=== PATIENT | male | born 1945 | race Caucasian/White ===

== ENCOUNTER → 2023-12-16 07:28 | Outpatient (REF) | payer MEDICARE, OTHER, SELFPAY ==
[2023-12-16 08:05] LABS: % Basophils 0.5 % (0-2); % Eosinophils 1.2 % (0-6); % Immature Granulocytes 0.7 % (0-0.5); % Lymphocytes 32.8 % (20.5-51.1); % Monocytes 10.9 % (1.7-9.3); % Neutrophils 53.9 % (42.2-75.2); Absolute Eosinophils 0.1 10^3/uL (0-0.7); Absolute Lymphocytes 1.4 10^3/uL (1.2-3.4); Absolute Monocytes 0.5 10^3/uL (0.1-0.6); Absolute Neutrophils 2.3 10^3/uL (1.4-6.5); Hemoglobin 13.8 g/dL (13.0-18.0); Mean Corp Hgb Conc. 34.5 g/dL (33.0-37.0); Mean Corpuscular Hgb 33.3 pg (27.0-31.0); Mean Corpuscular Volume 96.4 fL (80.0-94.0); Mean Platelet Volume 10.1 fL (7.4-10.4); Nucleated Red Blood Cells % 0 % (-); Platelet Count 174 10^3/uL (130-400); Red Blood Cell Count 4.15 10^6/uL (4.70-6.10); Red Cell Dist. Width 14.2 % (11.5-14.5); White Blood Cell Count 4.3 10^3/uL (4.8-10.8)
[2023-12-16 08:35] LABS: ALT (SGPT) 31 U/L (0-50); AST (SGOT) 36 U/L (17-59); Albumin 4.4 g/dl (3.5-5.0); Alkaline Phosphatase 44 U/L (38-126); Blood Urea Nitrogen 22 mg/dl (9-20); Carbon Dioxide 28 mmol/L (22-30); Chloride 102 mmol/L (98-107); Glucose 104 mg/dl (70-99); HDL Cholesterol 91 mg/dl; LDL Cholesterol, Calculated 107 mg/dl; Potassium 4.6 mmol/L (3.5-5.1); Sodium 136 mmol/L (135-145); Total Bilirubin 0.9 mg/dl (0.2-1.3); Total Cholesterol 229 mg/dl (50-199); Total Protein 6.8 g/dl (6.3-8.2); Triglyceride 157 mg/dl (10-149); Very Low Density Lipoprotein 31 mg/dl (0-30); eGFR > 60.00
== END ==
LOC: REG 07:28
PROVIDERS: ATTENDING PHYSICIAN Family Medicine
DX: R73.09 Other abnormal glucose (principal); E78.5 Hyperlipidemia, unspecified; C61 Malignant neoplasm of prostate; M10.9 Gout, unspecified
CPT/HCPCS: 36415; 80053; 80061; 83036; 84550; 85025

== ENCOUNTER 2023-12-23 11:23 | Emergency (ER) | payer MEDICARE, OTHER, SELFPAY ==
[2023-12-23 11:25] VITALS: BP 163/79
--- NOTE | 2023-12-23 11:37 | ED.GENMED ---
History of Present Illness
General
Chief Complaint: Flank Pain
Time Seen by Provider: 12/23/23 11:37
Travel History
Have you had any contact with someone who has COVID-19?: No
Do you have any symptoms of coronavirus? Fever > 100 degrees, chills, cough, shortness of breath, sore throat, loss of taste or smell, muscle aches, or headache?: No
History of Present Illness
History of Present Illness:
HPI: Patient presents from urgent care due to right flank pain. He has a history of prostate and bladder cancer known to Dr. Terrazas but has not had pain like this in the past. He has no urinary symptoms. He has some vague upper abdominal
discomfort as well. There is been no nausea or vomiting.
EXAM:
GENERAL: Well appearing in no distress
HEENT: Moist oral mucosa
CARDIOVASCULAR: No murmurs, normal heart rate and rhythm, No chest wall tenderness
PULMONARY: No respiratory distress, breath sounds are clear and equal
ABDOMEN: Soft with no peritoneal signs, minimal vague upper tenderness, no CVA tenderness
NEUROLOGIC: Excellent strength all extremities, no coordination deficits
PSYCHIATRIC: Appropriate mental status, normal insight and judgement
EXTREMITIES: Nontender, no edema, moves all extremities equally
SKIN: No rash, no lesions
ED COURSE:
11:50 AM: I initially evaluated patient
NUMBER AND COMPLEXITY OF PROBLEMS ADDRESSED AT THE ENCOUNTER
� Chronic conditions affecting care: High blood pressure, hyperlipidemia, prostate cancer and bladder cancer
� Acute Exacerbation and/or Progression of Chronic Illness: This is an acute problem
� Differential Diagnosis includes: Ureteral stone/colic, musculoskeletal back pain, UTI/pyelonephritis
AMOUNT AND/OR COMPLEXITY OF DATA TO BE REVIEWED AND ANALYZED
� I performed an independent evaluation of and my interpretation is:
EKG:
CT: CT shows no clear cause for the right flank pain
X-rays:
Laboratory Studies: CBC and chemistries unremarkable, trace amount of blood noted on urinalysis but no sign of infection
Other:
� Review of other/old records: The patient had a relatively unremarkable upper endoscopy in 2021
� Clinical information was obtained by an independent historian: None needed
� Prescriptions/Medications Considered but not given:
� Further testing considered but not performed:
RISK OF COMPLICATIONS AND/OR MORBIDITY OR MORTALITY OF PATIENT MANAGEMENT
� Social determinants of health affecting care: Lives at home
� Discussion with other providers:
� Escalation of care including admission/observation vs risk of discharge considered: The patient has been having flank pain for the past few days. Initially declined narcotic analgesia. CT imaging shows no clear cause for the
pain. He is already known to Dr. Terrazas for bladder/prostate cancer. He states he has had local resection along with chemo without radiation. He will follow-up Dr. Terrazas. Will try dose of Toradol before discharge
Past History
Past History
ED Past Medical History: Cancer (prostate), HTN, Other (Lower GI bleed) and Other (Gout, benign prostatic hypertrophy, borderline diabetes. depression, previous known hemorrhoids and polypectomy); Negative Arrthythmia
ED Past Surgical History: Orthopedic and Urological; Negative Cardiac
Social History
Tobacco: Former smoker
Alcohol: Daily
Drug: None
Personal:
Living: with family
Employment: Retired
Family History
Family History: Other (Noncontributory)
Phy Exam
Physical Exam
Physical Exam:
See HPI
Course
Orders/Labs/Results
Orders:
Orders
12/23/23 11:48
CT Abd/pel Without Iv Or Oral Urgent
Comment:
Reason For Exam: acute R flank pain
0.9% Sodium Chloride 1000 ml [Nss] 1,000 ml IV BOLUS
12/23/23 12:21
Complete Blood Count/With Diff Urgent
Comprehensive Metabolic Panel Urgent
Lipase Urgent
Urinalysis Reflex To Culture Urgent
Date Specimen was Collected: 12/23/23
Time Specimen was Collected: 12:12
Urine Microscopic Reflex Cult Urgent
Abnormal Lab Results
12/23/23
12:21
RBC 4.09 L 10^6/uL
(4.70-6.10)
MCV 96.8 H fL
(80.0-94.0)
MCH 33.3 H pg
(27.0-31.0)
Monocytes % 9.5 H %
(1.7-9.3)
Glucose 104 H mg/dl
(70-99)
Ur Occult Blood Reflex Trace A
(Negative)
Urine Bacteria (Reflex) Few A
(Negative)
12/23/23 12:21
12/23/23 12:21
Vital Signs
Initial and Last Documented VS:
Initial Vital Signs
Temp Pulse Resp BP Pulse Ox
97.6 F 67 18 163/79 98
12/23/23 11:25 12/23/23 11:25 12/23/23 11:25 12/23/23 11:25 12/23/23 11:25
Last Documented Vital Signs
Temp Pulse Resp BP Pulse Ox
97.6 F 60 18 122/78 96
12/23/23 11:25 12/23/23 13:14 12/23/23 13:14 12/23/23 13:14 12/23/23 13:14
*Critical Care Note
Total Time (30-74mins, 75-104mins- exclusive of procedures): Not Applicable
ED Attending Note
-
Portions of this chart may have been created with voice recognition software.� Occasional wrong word or��sound alike� substitutions may have occurred due to the inherent limitations of voice recognition software.
Discharge Plan
Departure
Patient Disposition: Home (Routine Discharge)
Date of Disposition: 12/23/23
Time of Disposition: 13:37
Patient with high blood pressure during this ER visit?: Yes
Discharge Problem:
Acute flank pain
Prescriptions:
No Action
vitamin B complex 1 TAB tablet
1 tab PO DAILY
fluoxetine 20 MG capsule
20 mg PO DAILY
omeprazole 20 MG capsule,delayed release(DR/EC)
20 mg PO DAILY
allopurinol 300 MG tablet
300 mg PO DAILY
cholecalciferol (vitamin D3) 125 MCG tablet,disintegrating
5,000 unit PO DAILY
multivitamin 1 EACH tablet
1 ea PO DAILY
ascorbic acid (vitamin C) [Vitamin C] 500 MG tablet
500 mg PO DAILY
lisinopril 10 MG tablet
10 mg PO DAILY
Ugujati-E-Bmpwlzf 1 TAB Tab
1 tab PO DAILY
Patient Comments:
900 mg
acetaminophen [Tylenol Extra Strength] 500 MG tablet
1,000 mg PO NOW
naproxen [Naprosyn] 500 MG tablet
500 mg PO BID Qty: 60 0RF
nitrofurantoin monohyd/m-cryst 100 MG capsule
100 mg PO DAILY Qty: 14 0RF
docusate sodium 100 MG capsule
100 mg PO BID Qty: 60 0RF
Rx Instructions:
get over the counter
tramadol 50 MG tablet
50 mg PO Q8 PRN (Reason: pain) Qty: 35 0RF
ondansetron 4 MG tablet,disintegrating
4 mg PO TIDPRN PRN (Reason: nausea/vomiting) Qty: 10 0RF
hydrocodone-acetaminophen 1 TABLET tablet
1 tab PO Q4HPRN PRN (Reason: severe pain) Qty: 8 0RF
amoxicillin-pot clavulanate 1 TABLET tablet
1 tab PO Q12 Qty: 20 0RF
Referrals:
Isaiah Boyce MD [Family Provider] -
Activity Restrictions/Additional Instructions:
Your white blood cell count and hemoglobin levels are normal. Kidney function is normal. Liver and pancreas numbers are also normal. There was a trace amount of blood noted but no sign of infection. The noncontrast CAT scan of the abdomen pelvis
showed no clear cause of your pain. There is a tiny stone inside of your left kidney but this should not cause the pain when they are inside the kidney and it was also on the opposite side. You do have severe diverticulosis however there is no
sign of infection of the diverticulosis which will be diverticulitis. There was some mild diffuse bladder wall thickening but again there was no sign of infection. I recommend that you follow-up with Dr. Terrazas. I also recommend that you continue
NSAIDs as an outpatient and consider ghni-xjq-wgrwyxm Salonpas or lidocaine patches.
Interventions
Interventions:
*Risk Screen - Suicide Last Done: 12/23/23 11:26
*General Assessment Last Done: 12/23/23 11:26
*Neglect/Abuse Screening Last Done: 12/23/23 11:26
KM-Rsmoiz-Fvszbnrxef Assessment Last Done: 12/23/23 13:14
ED-Male Genitourinary Assessment Last Done: 12/23/23 13:14
[2023-12-23 11:38] VITALS: BMI 24.1
[2023-12-23] MEDS: NSS 1000 IV (12:19)
[2023-12-23 12:30] LABS: Urine Albumin Negative (Neg - Trace); Urine Bilirubin Negative (Negative); Urine Character Clear (Clear); Urine Color Yellow; Urine Glucose Negative (Negative); Urine Ketone Negative (Negative); Urine Leukocyte Negative (Negative); Urine Nitrite Negative (Negative); Urine Occult Blood Trace (Negative); Urine Specific Gravity 1.025 (<1.030); Urine Urobilinogen Negative (Neg - 1+)
[2023-12-23 12:31] LABS: % Basophils 0.3 % (0-2); % Eosinophils 0.6 % (0-6); % Immature Granulocytes 0.5 % (0-0.5); % Lymphocytes 20.8 % (20.5-51.1); % Monocytes 9.5 % (1.7-9.3); % Neutrophils 68.3 % (42.2-75.2); Absolute Lymphocytes 1.3 10^3/uL (1.2-3.4); Absolute Monocytes 0.6 10^3/uL (0.1-0.6); Absolute Neutrophils 4.3 10^3/uL (1.4-6.5); Hematocrit 39.6 % (39.0-52.0); Hemoglobin 13.6 g/dL (13.0-18.0); Mean Corp Hgb Conc. 34.3 g/dL (33.0-37.0); Mean Corpuscular Hgb 33.3 pg (27.0-31.0); Mean Corpuscular Volume 96.8 fL (80.0-94.0); Mean Platelet Volume 10.1 fL (7.4-10.4); Nucleated Red Blood Cells % 0 % (-); Platelet Count 178 10^3/uL (130-400); Red Blood Cell Count 4.09 10^6/uL (4.70-6.10); Red Cell Dist. Width 13.9 % (11.5-14.5); White Blood Cell Count 6.2 10^3/uL (4.8-10.8)
[2023-12-23 12:41] LABS: Urine Red Blood Cell 0-2 /HPF (0-2); Urine White Cell 0-2 /HPF (0-5)
[2023-12-23 12:44] LABS: ALT (SGPT) 37 U/L (0-50); AST (SGOT) 35 U/L (17-59); Albumin 4.3 g/dl (3.5-5.0); Alkaline Phosphatase 45 U/L (38-126); Blood Urea Nitrogen 17 mg/dl (9-20); Calcium 9.2 mg/dl (8.4-10.2); Carbon Dioxide 26 mmol/L (22-30); Chloride 107 mmol/L (98-107); Estimated Creatinine Clearance 93 ml/min; Glucose 104 mg/dl (70-99); Lipase 87 U/L (23-300); Potassium 4.5 mmol/L (3.5-5.1); Sodium 137 mmol/L (135-145); Total Bilirubin 0.6 mg/dl (0.2-1.3); Total Protein 6.8 g/dl (6.3-8.2); eGFR > 60.00
[2023-12-23 12:49] LABS: Urine Bacteria Few (Negative)
[2023-12-23 13:14] VITALS: BP 122/78
[2023-12-23] MEDS: TORADOL 15 MG IV (13:55)
== END 2023-12-23 14:21 | disposition home or self-care (01) ==
LOC: EMR 11:23
PROVIDERS: EMERGENCY PHYSICIAN Emergency Medicine; FAMILY PHYSICIAN Family Medicine
DX: R10.9 Unspecified abdominal pain (principal); I10 Essential (primary) hypertension; Z87.891 Personal history of nicotine dependence
CPT/HCPCS: 99284; 96374; 96361; 74176; 80053; 81003; 81015; 83690; 85025

== ENCOUNTER → 2023-12-31 09:57 | Outpatient (REF) | payer MEDICARE, OTHER, SELFPAY | LOC: RAD 09:57 | PROVIDERS: ATTENDING PHYSICIAN Family Medicine | DX: M54.9 Dorsalgia, unspecified (principal); R07.9 Chest pain, unspecified; C67.9 Malignant neoplasm of bladder, unspecified; C61 Malignant neoplasm of prostate | CPT/HCPCS: 71101; 72072 ==

== ENCOUNTER → 2024-03-02 09:12 | Outpatient (REF) | payer MEDICARE, OTHER, SELFPAY | LOC: RAD 09:12 | PROVIDERS: ATTENDING PHYSICIAN Chiropractor; FAMILY PHYSICIAN Family Medicine | DX: M54.2 Cervicalgia (principal); M54.50 Low back pain, unspecified | CPT/HCPCS: 72040; 72100 ==

== ENCOUNTER 2024-03-23 19:40 | Inpatient (IN) | payer MEDICARE, OTHER, SELFPAY ==
[2024-03-23 16:01] VITALS: BP 161/100; BMI 23.7
[2024-03-23 16:12] LABS: % Basophils 0.3 % (0-2); % Eosinophils 0.6 % (0-6); % Immature Granulocytes 0.5 % (0-0.5); % Lymphocytes 18.7 % (20.5-51.1); % Monocytes 7.6 % (1.7-9.3); % Neutrophils 72.3 % (42.2-75.2); Absolute Eosinophils 0.1 10^3/uL (0-0.7); Absolute Immature Granulocytes 0.1 10^3/uL (0-0.05); Absolute Lymphocytes 2.1 10^3/uL (1.2-3.4); Absolute Monocytes 0.9 10^3/uL (0.1-0.6); Absolute Neutrophils 8.1 10^3/uL (1.4-6.5); Hematocrit 39.8 % (39.0-52.0); Hemoglobin 13.5 g/dL (13.0-18.0); Mean Corp Hgb Conc. 33.9 g/dL (33.0-37.0); Mean Corpuscular Hgb 33.2 pg (27.0-31.0); Mean Corpuscular Volume 97.8 fL (80.0-94.0); Mean Platelet Volume 10.1 fL (7.4-10.4); Nucleated Red Blood Cells % 0 % (-); Platelet Count 194 10^3/uL (130-400); Red Blood Cell Count 4.07 10^6/uL (4.70-6.10); White Blood Cell Count 11.3 10^3/uL (4.8-10.8)
[2024-03-23 16:30] LABS: ALT (SGPT) 28 U/L (0-50); AST (SGOT) 35 U/L (17-59); Albumin 4.6 g/dl (3.5-5.0); Alkaline Phosphatase 52 U/L (38-126); Blood Urea Nitrogen 22 mg/dl (9-20); Carbon Dioxide 23 mmol/L (22-30); Chloride 108 mmol/L (98-107); Estimated Creatinine Clearance 73 ml/min; Glucose 114 mg/dl (70-99); Potassium 4.1 mmol/L (3.5-5.1); Sodium 140 mmol/L (135-145); Total Bilirubin 0.6 mg/dl (0.2-1.3); Total Protein 7.1 g/dl (6.3-8.2); eGFR > 60.00
--- NOTE | 2024-03-23 18:17 | ED.GENMED ---
History of Present Illness
General
Chief Complaint: Abdominal Symptoms
Source: patient
Exam Limitations: none
Time Seen by Provider: 03/23/24 18:07
Nursing documentation reviewed up to this point in time: agreed with
Travel History
Have you had any contact with someone who has COVID-19?: No
Do you have any symptoms of coronavirus? Fever > 100 degrees, chills, cough, shortness of breath, sore throat, loss of taste or smell, muscle aches, or headache?: No
History of Present Illness
History of Present Illness:
Patient to ED for rectal bleeding. States he developed lower abdominal cramping this afternoon. Has had 4 epsides of bloody stool. Brought self to ED for eval. Reports prior episdode many years ago. No other symptoms.
Past History
Past History
ED Past Medical History: Cancer (prostate), HTN, Other (Lower GI bleed) and Other (Gout, benign prostatic hypertrophy, borderline diabetes. depression, previous known hemorrhoids and polypectomy); Negative Arrthythmia
ED Past Surgical History: Orthopedic and Urological; Negative Cardiac
Social History
Tobacco: Former smoker
Alcohol: Daily
Drug: None
Personal:
Living: with family
Employment: Retired
Family History
Family History: Other (Noncontributory)
Review of Systems
Review of Systems
Allergies reviewed?: Yes
All Other Systems: ROS reviewed and negative except as documented in HPI and ROS
Constitutional: Reports no symptoms
EENT: Reports no symptoms
Respiratory: Reports no symptoms
Cardiac: Reports no symptoms
ABD/GI: Reports bloody stools
Musculoskeletal: Reports no symptoms
Skin: Reports no symptoms
Neurological: Reports no symptoms
Psychiatric: Reports no symptoms
Phy Exam
General Physical Exam
General Presentation: well appearing and no apparent distress
General age: appears stated age
General Skin: warm and dry
General Habitus: normal
General Mental: alert
General Hydration: appears well hydrated
Pulmonary Exam
Pulmonary Exam: lungs clear and no respiratory distress
Gastrointestinal Exam
Gastrointestinal Exam: normal bowel sounds, soft, no organomegaly, non distended and no cva tenderness
Palpation: left upper quadrant: No tenderness, left lower quadrant: Minimal tenderness, right upper quadrant: No tenderness and right lower quadrant: Minimal tenderness
Rectal Exam: soft stool
Stool: red
Guaiac Status: grossly bloody - positive
Musculoskeletal Exam
Musculoskeletal Exam: full ROM and neuro vasc intact
Skin Exam
Skin Exam: normal color, warm/dry and no rash
Psychiatric Exam
Psychiatric Exam: normal mood/affect
Course
Orders/Labs/Results
Orders:
Orders
03/23/24 Dinner
NPO
Allow oral meds: Yes
Allow clear liquids: No
NPO with Ice Chips: No
03/23/24 16:04
EKG [Electrocardiogram (*1)] Urgent
Reason for Study: Abdominal Pain
EKG- Treatment ONCE
03/23/24 16:07
Complete Blood Count/With Diff Urgent
Comprehensive Metabolic Panel Urgent
03/23/24 18:18
0.9% Sodium Chloride 1000 ml [Nss] 1,000 ml IV BOLUS
03/23/24 18:44
Type+Screen Urgent
03/23/24 19:22
Admit/Transfer Patient As Directed
Co-Sign Provider:
Level of Care: Inpatient admission
Assign to:: Medical/Surgical
Physician / Group: ellen lugo
Diagnosis: rectal bleeding concern for Diverticular bleed
Reason for Hospitalization: rectal bleeding concern for Diverticular bleed
Expected length of stay greater than two midnights?: Yes
ELOS- Estimated Length of Stay in days: 3
I certify the patient meets the requirements for IP care: Yes
Code Status As Directed
Resuscitation Status: Full Code
03/23/24 19:28
GASTROINTESTINAL CONSULT Routine
Consulting Provider: Monica Victor
Was physician already notified: Yes
Reason for consult: rectal bleeding
03/23/24 20:34
Activity As Directed
Activity Level: As Tolerated
Intake/ Output As Directed
Frequency: Per unit guidelines
Pneumatic Compression Sleeves As Directed
Type: Knee high
Vital Signs As Directed
Frequency: Per unit guidelines
Ot Eval And Treat Routine
Pt Eval And Treat Routine
Activity Level: As Tolerated
DX Deep Vein Thrombosis Video Routine
03/23/24 22:00
Diphenhydramine [Benadryl] 50 mg PO HS
03/24/24 06:00
Basic Metabolic Panel IN AM
Complete Blood Count/With Diff IN AM
03/24/24 08:00
Allopurinol [Zyloprim] 300 mg PO DAILY
Cholecalciferol (Vitamin D3) [VITAMIN D3 (cholecalciferol)] 125 mcg PO DAILY
Fluoxetine HCl [Prozac] 20 mg PO DAILY
Lisinopril [Zestril] 20 mg PO DAILY
Multivitamin [Theragran] 1 tablet PO DAILY
Pantoprazole [Protonix] 40 mg PO DAILY
Vitamin B Complex with C [B COMPLEX w/VITAMIN C] 1 caplet PO DAILY
03/24/24 18:00
Rosuvastatin Calcium [Crestor] 5 mg PO MoWeFr@1800
03/25/24 06:00
Basic Metabolic Panel IN AM
Complete Blood Count/With Diff IN AM
03/26/24 06:00
Basic Metabolic Panel IN AM
Complete Blood Count/With Diff IN AM
Abnormal Lab Results
03/23/24
16:07
WBC 11.3 H 10^3/uL
(4.8-10.8)
RBC 4.07 L 10^6/uL
(4.70-6.10)
MCV 97.8 H fL
(80.0-94.0)
MCH 33.2 H pg
(27.0-31.0)
RDW 15.0 H %
(11.5-14.5)
Abs Immat Gran (auto) 0.1 H 10^3/uL
(0-0.05)
Absolute Neuts (auto) 8.1 H 10^3/uL
(1.4-6.5)
Absolute Monos (auto) 0.9 H 10^3/uL
(0.1-0.6)
Lymphocytes % 18.7 L %
(20.5-51.1)
Chloride 108 H mmol/L
(98-107)
BUN 22 H mg/dl
(9-20)
Glucose 114 H mg/dl
(70-99)
03/23/24 16:07
03/23/24 16:07
Vital Signs
Initial and Last Documented VS:
Initial Vital Signs
Temp Pulse Resp BP Pulse Ox
98.1 F 94 16 161/100 98
03/23/24 16:01 03/23/24 16:01 03/23/24 16:01 03/23/24 16:01 03/23/24 16:01
Last Documented Vital Signs
Temp Pulse Resp BP Pulse Ox
98.3 F 74 12 128/86 97
03/23/24 20:37 03/23/24 20:37 03/23/24 20:37 03/23/24 20:37 03/23/24 22:49
*Critical Care Note
Total Time (30-74mins, 75-104mins- exclusive of procedures): Not Applicable
ED Attending Note
-
Portions of this chart may have been created with voice recognition software.� Occasional wrong word or��sound alike� substitutions may have occurred due to the inherent limitations of voice recognition software.
Discharge Plan
Departure
Patient Disposition: Admit
Date of Disposition: 03/23/24
Time of Disposition: 18:23
Presentation/result/management discussed w/ accepting MD/DO: Hospitalist
Condition: Fair
Covid-19: Not Applicable
Discharge Problem:
Rectal bleeding
Interventions
Interventions:
*Risk Screen - Suicide Last Done: 03/23/24 20:45
*General Assessment Last Done: 03/23/24 19:00
*Neglect/Abuse Screening Last Done: 03/23/24 19:00
ED- Fall Risk Assessment Last Done: 03/23/24 19:00
*ED COVID-19 Vaccine History Last Done: 03/23/24 20:45
*Nursing Disposition Last Done: 03/23/24 20:35
ST-Jphjfw-Xaemqeemmf Assessment Last Done: 03/23/24 19:00
Discharge Date and Time
Discharge Date/Time: 03/23/24 20:36
[2024-03-23] MEDS: NSS 1000 IV (18:42)
--- NOTE | 2024-03-23 18:57 | HPS.HSE ---
Addendum entered and electronically signed by Johnnie Bernstein DO 03/23/24 19:55:
Patient seen and examined independently. Agree with findings and plan as set forth by ANTONIO Ledezma.
Patient is a 79y M with PMH significant for diverticular disease, hypertension and DM-II who presents to ED complaining of crampy abdominal pain and bloody stools. Patient states that his symptoms started rather suddenly around 2 PM today. He
describes crampy, lower abdominal pain followed by BM. He reports that BM contained small amount of stool and moderate amount of bright red blood. His last 2 bowel movements seemed to be blood alone. He has had 4 total episodes of BRBPR since 2
PM today. Patient reports a prior history of similar symptoms - previously attributed to diverticular disease. He has had two episodes of BRBPR since his arrival in the ED.
He denies any associated lightheadedness, dizziness, chest pain, dyspnea, etc. No N/V. No fevers / chills.
Ass:
BRBPR
Diverticular Disease
Benign Hypertension
GERD
Diet-Controlled DM-II
Gout
Lumbar DDD
Prostate Cancer / Bladder Cancer
Plan:
Admit for further evaluation and treatment.
Hgb is stable at present.
Follow for any recurrent episodes of BRBPR.
Monitor for any development of hypotension. etc.
Would check CTA abdomen if patient has additional episodes of BRBPR.
+/- IR eval if any source of bleeding is identified.
GI eval in the AM.
Follow H&H and transfuse if needed.
Original Note:
Family Physician
-
Family Physician: Isaiah Boyce
Chief Complaint
-
Abdominal cramping with bloody stool
History of Present Illness
79-year-old male complaining of lower abdominal cramping this afternoon with initial abdominal cramping lower abdomen at 2 PM followed by blood and some formed pieces of stool. He then had 2 additional episodes of bright red blood 30 minutes 1 hour
later. While in the ER he had 2 additional episodes of bright red blood in toilet. He has mild lower abdominal cramping. He reports having this several years ago with history of GI bleed 2018 thought to be due to a diverticular bleed.. He denies
fever, chills, chest pain, palpitations, shortness breath, cough, nausea, vomiting, urinary symptoms. He has HX of lower GI bleed (admitted 02/2018 status post colonoscopy showing diverticula). Other PMH includes hemorrhoids, polypectomy HTN,
prostate cancer/with prostatectomy 2020, bladder tumor with removal 12/20/2014 BPH, gout, DM2, depression, former smoker
Medical History
Past Medical History
Past Medical History: Reports Other
Additional Past Medical History:
Diverticular bleed 2017
GI bleed, hemorrhoids
polypectomy
HTN
prostate cancer/with prostatectomy 2020
bladder tumor with removal 12/20/2014
BPH
gout,
DM2-borderline
depression
former smoker
Past Surgical History: Reports Other
Additional Past Surgical History:
Hx bladder tumor with removal 12/20/2014
History elevated PSA with prostatectomy 2020
Amputation right fifth digit 1977
Vasectomy 1981
Social History
Tobacco: Non-smoker
Alcohol: Other (4 days a week 2 glasses wine each total 8 glasses a week)
Personal:
Living: With Family ( Katarina)
Employment: Retired
Family History
Family History: Other (Mother and father CVAs, brother living history diverticulosis)
Allergies / Home Medications
Allergies reflects when Allergies were last updated in [facility].
Home Medications with original date entered in [facility]
Allergy/Medication List:
Allergies
Allergy/AdvReac Type Severity Reaction Status Date / Time
levofloxacin [From Levaquin] Allergy Nausea / Verified 03/23/24 16:04
Vomiting,
headache
tramadol Allergy Nausea / Verified 03/23/24 16:04
Vomiting,
headache
Home Medications
fluoxetine 20 mg capsule 20 mg PO DAILY Mental Health/Anxiety 02/23/18
vitamin B complex 1 tab PO DAILY Supplement 02/23/18
allopurinol 300 mg tablet 300 mg PO DAILY Gout 09/13/18
omeprazole 20 mg capsule,delayed release 20 mg PO DAILY Gastrointestinal issue 09/13/18
cholecalciferol (vitamin D3) 125 mcg (5,000 unit) disintegrating tablet 125 mcg PO DAILY Supplement 12/23/19
ascorbic acid (vitamin C) 500 mg tablet (Vitamin C) 500 mg PO DAILY Supplement 01/15/21
multivitamin 1 ea PO DAILY Supplement 01/15/21
docusate sodium 100 mg capsule 100 mg PO BID #60 caps 03/07/21
diphenhydramine 25 mg-acetaminophen 500 mg tablet (Tylenol PM Extra Strength) 2 tab PO HS 03/23/24
lisinopril 20 mg tablet 20 mg PO DAILY 03/23/24
naproxen 500 mg tablet (Naprosyn) 500 mg PO BID PRN mild pain 03/23/24
rosuvastatin 5 mg tablet 5 mg PO MOWEFR 03/23/24
Review of Systems
-
History Source: Patient
A 12 point ROS was completed and negative except as noted: Yes
Constitutional: Denies Fever or Chills
EENT: Denies Sore Throat or Runny Nose
Respiratory: Denies Cough or Trouble Breathing
Cardiac: Denies Chest Pain, Diaphoresis or Syncope
Abdomen/GI: Reports Abdominal Pain (Lower abdomen) and Bloody Stools (Bright red); Denies Nausea, Vomiting, Diarrhea or Constipated
: Denies Dysuria, Frequency, Flank Pain, Incontinence or Difficulty Voiding
Musculoskeletal: Denies Joint Pain or Edema
Skin: Denies Itching or Rash
Neurological: Denies Dizzy, Headache or Weakness
Endocrine: Reports No Symptoms
Hematologic/Lymphatic: Reports No Symptoms
Psych: Reports Calm
Physical Exam
Vital Signs
Vital Signs
Temp Pulse Resp BP Pulse Ox
98.1 F 94 16 161/100 98
03/23/24 16:01 03/23/24 16:01 03/23/24 16:01 03/23/24 16:01 03/23/24 16:01
Physical Exam
General: Comfortable and Conversant; No Fever or Chills
HEENT: NormoCephalic, Anicteric, Moist mucous membranes, PERRLA, Drake Conjunctivae and No Ptosis
Respiratory: Clear; No Wheezes, Rales or Rhonchi
Cardiac: S1/S2 and Regular Rhythm; No Murmur, Rub, Gallop or Peripheral Edema
Breast: Deferred by me
GI: Soft, Non Distended, Normal Bowel Sounds, Tender (Across lower abdomen) and No Hepatosplenomegaly
Genito-urinary: Deferred by me
Musculoskeletal: No Clubbing, No Cyanosis and No Edema
Skin: Warm and Dry; No Rash or Jaundice
Neuro: AO x 3, No Motor Deficits, Nonfocal/grossly intact, Cranial Nerves Intact and No Sensory Deficits; No Slurred Speech, Facial Droop or Tremors
Psych: Calm
Laboratory Results
-
03/23/24 16:07
03/23/24 16:07
Laboratory Results
PT Cancelled 03/23/24 16:04
INR Cancelled 03/23/24 16:04
APTT Cancelled 03/23/24 16:04
Total Bilirubin 0.6 mg/dl (0.2-1.3) 03/23/24 16:07
AST 35 U/L (17-59) 03/23/24 16:07
ALT 28 U/L (0-50) 03/23/24 16:07
Alkaline Phosphatase 52 U/L (38-126) 03/23/24 16:07
Data Reviewed
-
Lab Data: Labs Reviewed by me
Impression/Plan
-
Impression/plan:
Admit to MedSurg
#Acute Rectal bleeding concern for diverticular bleed versus hemorrhoidal
#HX lower GI bleed (admitted 02/2018 status post colonoscopy showing diverticula)
#hemorrhoids with polypectomy in past
Hgb 13.5 stable
-N.p.o.
-IV NSS
-Consult GI
-Type and screen
-Follow CBC, BMP
#HTN-benign
161/100 will monitor
-Continue lisinopril 20 mg daily
#GERD
Continue omeprazole 20 mg daily
#HLD
- Crestor 5 mg Wednesday
#Depression
-Continue fluoxetine 20 mg daily
#Gout
-Continue allopurinol 300 mg daily
# Hx borderline DM 2
Current blood sugar 114
#Insomnia
Takes Tylenol with Benadryl 2 tabs at bedtime
#Hx bladder tumor with removal 12/20/2014
#History elevated PSA/prostate cancer with prostatectomy 2020
Other PMH:
FALSE PASS
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
DVT prophylaxis
SCDs
DNR
[2024-03-23 19:38] VITALS: BP 133/81
[2024-03-23 20:33] VITALS: BMI 23.0
[2024-03-23 20:37] VITALS: BP 128/86
[2024-03-23] MEDS: TYLENOL 1000 MG PO (21:59)
[2024-03-23] MEDS: BENADRYL 50 MG PO (21:59)
[2024-03-23 23:50] VITALS: BP 94/64
[2024-03-24 05:35] VITALS: BP 114/59
[2024-03-24 06:29] VITALS: BMI 23.0
[2024-03-24 06:32] LABS: % Basophils 0.6 % (0-2); % Eosinophils 1.7 % (0-6); % Immature Granulocytes 0.7 % (0-0.5); % Monocytes 10.7 % (1.7-9.3); % Neutrophils 58.3 % (42.2-75.2); Absolute Eosinophils 0.1 10^3/uL (0-0.7); Absolute Lymphocytes 1.5 10^3/uL (1.2-3.4); Absolute Monocytes 0.6 10^3/uL (0.1-0.6); Absolute Neutrophils 3.1 10^3/uL (1.4-6.5); Hematocrit 29.7 % (39.0-52.0); Hemoglobin 9.9 g/dL (13.0-18.0); Mean Corp Hgb Conc. 33.3 g/dL (33.0-37.0); Mean Corpuscular Hgb 33.1 pg (27.0-31.0); Mean Corpuscular Volume 99.3 fL (80.0-94.0); Mean Platelet Volume 10.2 fL (7.4-10.4); Nucleated Red Blood Cells % 0 % (-); Platelet Count 132 10^3/uL (130-400); Red Blood Cell Count 2.99 10^6/uL (4.70-6.10); Red Cell Dist. Width 14.8 % (11.5-14.5); White Blood Cell Count 5.4 10^3/uL (4.8-10.8)
[2024-03-24 07:00] VITALS: BP 116/64
[2024-03-24 07:07] LABS: Blood Urea Nitrogen 19 mg/dl (9-20); Calcium 8.6 mg/dl (8.4-10.2); Carbon Dioxide 25 mmol/L (22-30); Chloride 111 mmol/L (98-107); Estimated Creatinine Clearance 82 ml/min; Glucose 112 mg/dl (70-99); Potassium 4.5 mmol/L (3.5-5.1); Sodium 140 mmol/L (135-145); eGFR > 60.00
[2024-03-24] MEDS: PROZAC 20 MG PO (07:47)
[2024-03-24] MEDS: B COMPLEX w/VITAMIN C 1 CAPLET PO (07:47)
[2024-03-24] MEDS: ZYLOPRIM 300 MG PO (07:47)
[2024-03-24] MEDS: PROTONIX 40 MG PO (07:47)
[2024-03-24] MEDS: VITAMIN D3 (cholecalciferol) 125 MCG PO (07:47)
[2024-03-24] MEDS: THERAGRAN 1 TABLET PO (07:47)
[2024-03-24] MEDS: ZESTRIL 20 MG PO (07:48)
[2024-03-24 07:51] LABS: Hepatitis C Antibody Negative (Negative)
[2024-03-24 08:46] VITALS: BP 91/68; PULSE 109; O2SAT 99
--- NOTE | 2024-03-24 08:51 | PTOTSP ---
pt currently demonstrates ability to complete simple ADLs, functional transfers, ambulation with no assistance. no acute OT needs identified at this time, will sign off.
--- NOTE | 2024-03-24 10:35 | CON.GI ---
Consultation
-
Date/Time Consultation Requested: 03/24/24
Date/Time Consultation Performed: 03/24/24
Requesting Provider: Dr. Carbajal
Performing Provider: Dr. Mantilla
Reason for Consultation: Hematochezia
Medical History
Chief Complaint / HPI
Chief Complaint: Rectal bleeding
History of Present Illness:
Angelito is a 79-year-old male with a past medical history of hypertension, hx bladder cancer, Hx IPMN, diabetes, hx prostate ca s/p prostatectomy, history of diverticular bleeding who presents with multiple episodes of large-volume hematochezia. He
reports being in his normal state of health until yesterday when he had a small hard bowel movement followed by large volume of bloody diarrhea which prompted him to come in for evaluation. He follows with Dr. Olmstead as an outpatient.
Of note, Upper endoscopy in 2014 showed antral biopsy with features mild neuroendocrine cell hyperplasia, subsequent upper endoscopy with biopsy and EUS did not show this.
He reports that since being admitted he has had multiple episodes of bloody stool, most recently about 30 minutes prior to my evaluation. He also endorses dizziness and lightheadedness as well as a headache. He denies any blood thinners or use of
NSAIDs. No change in medications, antibiotics, sick contacts or recent travel. He reports having crampy abdominal pain prior to having a bowel movement.
Reports 2 prior diverticular bleeds-- last episode was 6 years ago. He reports these were managed conservatively, never underwent IR embolization. He has never met with colorectal surgery to discuss surgical intervention.
Hemoglobin initially 13.5 on arrival --> 9.9 on todays labs. MCV 99.3, Plt 132. BUN 17 -->22 -->19, Cr. 0.8. No imaging obtained on arrival. He was mildly hypotensive with BPs 90/60s last night, but otherwise has remained hemodynamically stable.
Past Medical History
Past Medical History: HTN, NIDDM and Other (Hx bladder cancer, hx prostate cancer, hx GI bleeding)
Past Surgical History: Urological
Social History
Tobacco: Former Smoker
Alcohol: Occasional
Drug: None
Personal:
Living: With Family
Allergies / Home Medications
Allergy/AdvReac Type Severity Reaction Status Date / Time
levofloxacin [From Levaquin] Allergy Nausea / Verified 03/23/24 16:04
Vomiting,
headache
tramadol Allergy Nausea / Verified 03/23/24 16:04
Vomiting,
headache
�Medication �Instructions �Recorded
fluoxetine 20 mg capsule 20 mg PO DAILY Mental 02/23/18
Health/Anxiety
vitamin B complex 1 tab PO DAILY Supplement 02/23/18
allopurinol 300 mg tablet 300 mg PO DAILY Gout 09/13/18
omeprazole 20 mg capsule,delayed 20 mg PO DAILY Gastrointestinal 09/13/18
release issue
cholecalciferol (vitamin D3) 125 125 mcg PO DAILY Supplement 12/23/19
mcg (5,000 unit) disintegrating
tablet
ascorbic acid (vitamin C) 500 mg 500 mg PO DAILY Supplement 01/15/21
tablet (Vitamin C)
multivitamin 1 ea PO DAILY Supplement 01/15/21
docusate sodium 100 mg capsule 100 mg PO BID #60 caps 03/07/21
diphenhydramine 25 2 tab PO HS 03/23/24
mg-acetaminophen 500 mg tablet
(Tylenol PM Extra Strength)
lisinopril 20 mg tablet 20 mg PO DAILY 03/23/24
naproxen 500 mg tablet (Naprosyn) 500 mg PO BID PRN mild pain 03/23/24
rosuvastatin 5 mg tablet 5 mg PO MOWEFR 03/23/24
Review of Systems
-
History Source: Patient and Family
All other systems: A 12 pt ROS was Negative except as stated above in HPI
Vital Signs
Temp Pulse Resp BP Pulse Ox
97.8 F 73 14 116/64 99
03/24/24 07:00 03/24/24 07:48 03/24/24 07:00 03/24/24 07:48 03/24/24 07:00
Physical Exam
Exam
GENERAL: In no acute distress, appears comfortable
HEENT: no scleral icterus, mucous membranes moist, OP clear
RESP: Nonlabored respirations, clear to auscultation, b/l
CV: RRR, S1/S2
ABDOMEN: +BS; soft, mild abdominal distension, pain with palpation in LLQ and umbilical, no rebound or guarding
EXT: No LE edema, b/l
SKIN: Dry, warm
NEURO: AAOx3
Results
WBC 5.4 10^3/uL (4.8-10.8) 03/24/24 06:21
Hgb 9.9 g/dL (13.0-18.0) L D 03/24/24 06:21
Hct 29.7 % (39.0-52.0) L 03/24/24 06:21
MCV 99.3 fL (80.0-94.0) H 03/24/24 06:21
Plt Count 132 10^3/uL (130-400) D 03/24/24 06:21
Absolute Neuts (auto) 3.1 10^3/uL (1.4-6.5) 03/24/24 06:21
PT Cancelled 03/23/24 16:04
INR Cancelled 03/23/24 16:04
APTT Cancelled 03/23/24 16:04
Sodium 140 mmol/L (135-145) 03/24/24 06:21
Potassium 4.5 mmol/L (3.5-5.1) 03/24/24 06:21
Chloride 111 mmol/L (98-107) H 03/24/24 06:21
Carbon Dioxide 25 mmol/L (22-30) 03/24/24 06:21
BUN 19 mg/dl (9-20) 03/24/24 06:21
Creatinine 0.8 mg/dL (0.7-1.3) 03/24/24 06:21
Calcium 8.6 mg/dl (8.4-10.2) 03/24/24 06:21
Total Bilirubin 0.6 mg/dl (0.2-1.3) 03/23/24 16:07
AST 35 U/L (17-59) 03/23/24 16:07
ALT 28 U/L (0-50) 03/23/24 16:07
Alkaline Phosphatase 52 U/L (38-126) 03/23/24 16:07
Hepatitis C Antibody Negative (Negative) 03/24/24 06:21
Diagnostic Image Results:
�MRI abdomen with/without contrast, 02/2021
������� Stable small simple appearing pancreatic cysts measuring up to 0.6 cm, unchanged dating back to 06/16/2019. No suspicious features.
�������MRI abdomen with/without contrast, 06/16/2019: There is a small nonenhancing 6 mm cyst in the body-tail of the pancreas, unchanged. There are 2 tiny less than 2 mm in size cyst in the to of the pancreas. There is a 2 mm cyst in the head of the
pancreas. Impression per report, stable exam. Several small pancreatic cysts unchanged. No abnormal enhancement.
Prior GI Procedures:
EGD:
��
EGD, January 2017: Widely patent Schatzki ring, Z line regular at 36 cm, small hiatal hernia, scar in the gastric antrum, erythematous antrum, normal duodenal bulb and second portion of the duodenum. Biopsies of the antrum showed mild chronic
gastritis.
�
��EGD, November 2014: Widely patent Schatzki ring, Z line regular at 40 cm, normal cardia, hiatal hernia, erythematous mucosa in the gastric fundus and gastric body, and the duodenal folds, a medium-sized size infiltrative mass on the greater
curvature of the gastric antrum, normal second part of the duodenum. 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
hyperplasia, antrum biopsy showed focal mild active and chronic follicular gastritis With features of reactive/chemical gastropathy and small epithelial nest in lamina propria most consistent with mild neuroendocrine cell hyperplasia(synaptophysin
positive, chromogranin positive, mucicarmine negative). Biopsy of mass along greater curvature of stomach showed mild to moderate chronic gastritis with polypoid features and prominent features of mucosa/reactive gastropathy. Biopsy of erythema of
the body and fundus showed mild chronic gastritis and vascular congestion.
��EUS, January 2015: Erythematous region of mucosa in the proximal antrum on the greater curvature aspect was normal on endosonographic evaluation. Incidental finding of a 6 mm x 4 mm pancreatic tail cyst with communication with a side branch. This is
an incidental sidebranch IPMN and versus mucinous cystic neoplasm until proven otherwise.
������
�EUS, May 2016: No gastric masses or abnormal folds. There were no ulcers. No gross evidence of mucosal abnormalities of the gastric mucosa. 6 mm pancreatic body cyst with communication with a side branch. Most likely this is a side branch IPMN.
Colonoscopy:
Colonoscopy 02/03/2021: Diverticulosis t/o, mult polyps, hemorrhoids. Path revealed TA
�������Colonoscopy, February 2018: Preparation of the colon was fair, diverticulosis in the sigmoid colon, descending colon, transverse colon, and ascending colon.
Colonoscopy, November 2014: Examined ileum was normal, 5 mm polyp and 4 mm polyp resected, diverticulosis, nonbleeding external hemorrhoids; Biopsy showed mildly hyperplastic colonic mucosa and hyperplastic polyp.
Assessment / Plan
-
79-year-old male with a past medical history of hypertension, hx bladder cancer, Hx IPMN, diabetes, hx prostate ca s/p prostatectomy, history of diverticular bleeding who presents with multiple episodes of large-volume hematochezia.
#Large volume hematochezia-- DDx diverticular bleed vs. AVM vs. diuelafoy vs. stercoral ulcer/colitis vs. ischemia vs. IBD vs. malignancy
-Suspect diverticular due to known history of pandiverticulosis and history of 2 prior diverticular bleeds
-Given frequency and volume, will obtain stat CTA in attempts to localize bleed, very low likelihood of finding the diverticulum that is bleeding on colonoscopy and surgical intervention will be difficult to target area given the scattered/diffuse
distribution in the colon
-keep NPO, active T&C, transfuse for hgb <7
-2 large bore peripheral gauge IVs
-if CTA positive, needs IR embolization, if negative, will discuss timing of colonoscopy, however, this will likely be diagnostic only with low therpaeutic yield, if etiology is diverticular in origin
#Hx colon polyps
- 1x TA on last colonoscopy in 2020, recall 5 years
#Hx Duodenal polyp
-small TA in EGD with Dr. Olmstead in 2021, OP f/u
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
-Upper endoscopy in 2014 showed antral biopsy with features mild neuroendocrine cell hyperplasia, subsequent upper endoscopy with biopsy and EUS did not show this.
Data Reviewed
-
MRI: Report Reviewed by me
Old Records: Reviewed
-
-
Thank you for consultation and allowing me to participate in the patient's care. Please call the aircraft avionics technician GI physician during the after hours with any questions or concerns.
--- NOTE | 2024-03-24 10:50 | W.PN.HOSP.TC ---
Today's Communication/Plan
-
serial H&H
await CTA
possible blood transfusion
Assessment / Plan
Assessment / Plan
pt is a 79 year old male
Acute Rectal bleeding --concern for diverticular bleed versus hemorrhoidal--HX lower GI bleed (admitted 02/2018 status post colonoscopy showing diverticula--hemorrhoids with polypectomy in past)--pt with upper abdominal pain--? PUS, gastritis,
etc----HGB drop from 13.5 to 9.9 (not on IVF)--cont NPO/IVF--getting CTA abdomen/pelvis--serial H&H--may need blood--apprec GI
Essential HTN--161/100 will monitor ---Continue lisinopril 20 mg daily as able
GERD--Continue omeprazole 20 mg daily
HLD-- Crestor 5 mg Wednesday
Depression--Continue fluoxetine 20 mg daily
Gout--Continue allopurinol 300 mg daily
Hx borderline DM 2--Current blood sugar 114
Insomnia--Takes Tylenol with Benadryl 2 tabs at bedtime
Hx bladder tumor with removal 12/20/2014
History elevated PSA/prostate cancer with prostatectomy 2020
Other PMH:
[place]
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
DVT prophylaxis
SCDs
DNR
Anticipated Discharge: > 48 hours
Subjective/Interval History
-
Date of Service: March 24, 2024
pt c/o crampy upper abdominal pain
Objective Data
-
Labs:
Laboratory Results
03/24/24
06:21
WBC 5.4
Hgb 9.9 L D
Hct 29.7 L
Plt Count 132 D
Sodium 140
Potassium 4.5
Chloride 111 H
Carbon Dioxide 25
BUN 19
Creatinine 0.8
Glucose 112 H
Calcium 8.6
Vital Signs:
max temp for 24 hours
03/23/24
20:37
Temp 98.3 F
Vital Signs
Temp Pulse Resp BP Pulse Ox
97.8 F 73 14 116/64 99
03/24/24 07:00 03/24/24 07:48 03/24/24 07:00 03/24/24 07:48 03/24/24 07:00
Review of Systems
-
All other systems: Reviewed and negative
Abdomen/GI: Reports Abdominal Pain and Bloody Stools
Physical Exam
-
General: Well Developed, Well Nourished and No Apparent Distress
HEENT: Normocephalic and Atraumatic
Respiratory: Clear to Auscultation; Negative Wheezes or Rhonchi
Cardiac: Regular Rhythm and S1/S2; Negative Murmur
GI: Soft, Nondistended, Normal Bowel Sounds and Tender (midepigastric area)
Musculoskeletal: No Clubbing, No Cyanosis and No Edema
Neuro: Awake and Alert
Psych: Calm
[2024-03-24] MEDS: NSS 1000 IV ×2 (11:13→20:56)
[2024-03-24 11:25] LABS: Hematocrit 27.9 % (39.0-52.0); Hemoglobin 9.4 g/dL (13.0-18.0)
[2024-03-24 12:46] VITALS: BP 130/64; PULSE 100; O2SAT 100
[2024-03-24] MEDS: CITROMA 300 ML PO (12:47)
--- NOTE | 2024-03-24 14:29 | CM ---
Reviewed the chart notes and spoke with the patient at the bedside. The patient resides with his spouse in a two story home with four steps to enter. The patient reports no DME/VN/SNF in the past. The patient confirmed her pharmacy of choice is
the [facility]. CM continues to be available to patient/family and is monitoring medical plan for needs at discharge.
Plan: Discharge to home when medically stable. No needs anticipated.
[2024-03-24 15:03] VITALS: BP 94/56
[2024-03-24 16:24] LABS: Hematocrit 29.8 % (39.0-52.0); Hemoglobin 10.1 g/dL (13.0-18.0)
[2024-03-24] MEDS: CRESTOR 5 MG PO (17:35)
[2024-03-24] MEDS: TYLENOL 1000 MG PO (20:55)
[2024-03-24] MEDS: BENADRYL 50 MG PO (20:55)
[2024-03-24 22:59] LABS: Hematocrit 23.3 % (39.0-52.0); Hemoglobin 8.2 g/dL (13.0-18.0)
[2024-03-24 23:30] VITALS: BP 96/51
[2024-03-25] VITALS (11 sets, daily range): BP systolic 92–137; BP diastolic 50–86
[2024-03-25] MEDS: NSS 1000 IV (06:00)
[2024-03-25 06:08] LABS: % Basophils 0.5 % (0-2); % Eosinophils 2.1 % (0-6); % Immature Granulocytes 0.5 % (0-0.5); % Lymphocytes 32.6 % (20.5-51.1); % Neutrophils 53.3 % (42.2-75.2); Absolute Eosinophils 0.1 10^3/uL (0-0.7); Absolute Lymphocytes 1.4 10^3/uL (1.2-3.4); Absolute Monocytes 0.5 10^3/uL (0.1-0.6); Absolute Neutrophils 2.3 10^3/uL (1.4-6.5); Hematocrit 25.1 % (39.0-52.0); Hemoglobin 8.4 g/dL (13.0-18.0); Mean Corp Hgb Conc. 33.5 g/dL (33.0-37.0); Mean Corpuscular Hgb 32.4 pg (27.0-31.0); Mean Corpuscular Volume 96.9 fL (80.0-94.0); Mean Platelet Volume 10.2 fL (7.4-10.4); Nucleated Red Blood Cells % 0 % (-); Platelet Count 125 10^3/uL (130-400); Red Blood Cell Count 2.59 10^6/uL (4.70-6.10); Red Cell Dist. Width 14.6 % (11.5-14.5); White Blood Cell Count 4.3 10^3/uL (4.8-10.8)
[2024-03-25 06:32] LABS: Blood Urea Nitrogen 16 mg/dl (9-20); Calcium 8.2 mg/dl (8.4-10.2); Carbon Dioxide 22 mmol/L (22-30); Chloride 110 mmol/L (98-107); Estimated Creatinine Clearance 82 ml/min; Glucose 105 mg/dl (70-99); Potassium 3.9 mmol/L (3.5-5.1); Sodium 139 mmol/L (135-145); eGFR > 60.00
--- NOTE | 2024-03-25 08:32 | W.PN.HOSP.TC ---
Today's Communication/Plan
-
transfuse 2 units pRBC
hold lisinopril
serial H&H
Assessment / Plan
Assessment / Plan
pt is a 79 year old male
Acute Rectal bleeding --bright red--concern for diverticular bleed, AVMs, hemorrhoidal--HX lower GI bleed (admitted 02/2018 status post colonoscopy showing diverticula--hemorrhoids with polypectomy in past)---HGB drop from 13.5 to 8.4 and
symptomatic--cont NPO/IVF--CTA abdomen/pelvis was negative--serial H&H--transfuse 2 units pRBC
Essential HTN--hold lisinopril 20 mg daily as able--follow BPs
GERD--Continue omeprazole 20 mg daily--consider IV but if lower likely won't help
HLD-- Crestor 5 mg Wednesday
Depression--Continue fluoxetine 20 mg daily
Gout--Continue allopurinol 300 mg daily
Hx borderline DM 2--Current blood sugar 114
Insomnia--Takes Tylenol with Benadryl 2 tabs at bedtime
Hx bladder tumor with removal 12/20/2014
History elevated PSA/prostate cancer with prostatectomy 2020
Other PMH:
[place]
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
DVT prophylaxis
SCDs
DNR
Anticipated Discharge: > 48 hours
Subjective/Interval History
-
Date of Service: March 25, 2024
pt doesn't feel well, lightheaded, says still bleeding--RED blood not maroon or black
Objective Data
-
Labs:
Laboratory Results
03/24/24 03/25/24
22:53 05:52
WBC 4.3 L
Hgb 8.2 L 8.4 L
Hct 23.3 L 25.1 L
Plt Count 125 L
Sodium 139
Potassium 3.9
Chloride 110 H
Carbon Dioxide 22
BUN 16
Creatinine 0.8
Glucose 105 H
Calcium 8.2 L
Vital Signs:
max temp for 24 hours
03/24/24
23:30
Temp 98.0 F
Vital Signs
Temp Pulse Resp BP Pulse Ox
98.2 F 71 16 115/56 100
03/25/24 07:40 03/25/24 07:40 03/25/24 07:40 03/25/24 07:40 03/25/24 07:40
I&O
03/24/24 03/25/24 03/26/24
06:59 06:59 06:59
Intake Total 4610 / 4610
Balance 4610 / 4610
Review of Systems
-
All other systems: Reviewed and negative
Abdomen/GI: Reports Bloody Stools (bright red) and Other (feels bloated); Denies Abdominal Pain
Physical Exam
-
General: Well Developed, Well Nourished and No Apparent Distress
HEENT: Normocephalic and Atraumatic
Respiratory: Clear to Auscultation; Negative Wheezes, Rales, Rhonchi or Crackles
Cardiac: Regular Rhythm and S1/S2; Negative Murmur
GI: Soft, Nontender and Distended; Negative Normal Bowel Sounds (hypoactive)
Musculoskeletal: No Clubbing, No Cyanosis and No Edema
Neuro: Awake and Alert
Psych: Calm
[2024-03-25] MEDS: B COMPLEX w/VITAMIN C 1 CAPLET PO (09:24)
[2024-03-25] MEDS: PROTONIX 40 MG PO (09:24)
[2024-03-25] MEDS: PROZAC 20 MG PO (09:25)
[2024-03-25] MEDS: THERAGRAN 1 TABLET PO (09:25)
[2024-03-25] MEDS: ZYLOPRIM 300 MG PO (09:25)
[2024-03-25] MEDS: VITAMIN D3 (cholecalciferol) 125 MCG PO (09:25)
[2024-03-25] MEDS: ZESTRIL PO (09:25)
[2024-03-25 10:35] LABS: Hematocrit 27.4 % (39.0-52.0); Hemoglobin 9.3 g/dL (13.0-18.0)
--- NOTE | 2024-03-25 12:23 | W.PN.GI.CBS2 ---
Today's Communication / Plan
-
-- Strict -not out of bed
-- Clear liquids, transfused 2 units, ordered by Dr. Carbajal
-- Monitor output, patient to take pictures
-- If he has massive amounts of bleeding since straight to CT angio
Assessment / Plan
-
79-year-old male with a past medical history of hypertension, hx bladder cancer, Hx IPMN, diabetes, hx prostate ca s/p prostatectomy without XRT, history of suspected diverticular bleeding about 4 yrs ago who presents with multiple episodes of
large-volume hematochezia who has been hemodynamically stable wtih a drop in hgb from normal baseline of 13 down to 8s.
#Large volume hematochezia-- DDx diverticular bleed vs. AVM vs. dieulafoy vs. stercoral ulcer/colitis vs. ischemia vs. IBD vs. malignancy
-Suspect diverticular due to known history of pandiverticulosis and history of 2 prior suspected diverticular bleeds
-- CTA negative for active bleeding on 03/24/24
-- clear liquids
-- agree with transfusion considering he started at 13
-2 large bore peripheral gauge IVs
-- told him to NOT get out of bed - bedside commode with assistance or bedpan
-- told him to take pics of his next stool
-- Currently he is not bleeding enough to repeat any type of bleeding scan
-- -Discussed with Dr. Carbajal
#Hx colon polyps
- 1x TA on last colonoscopy in 2020, recall 5 years
#Hx Duodenal polyp
-small TA in EGD with Dr. Olmstead in 2021, OP f/u
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
-Upper endoscopy in 2014 showed antral biopsy with features mild neuroendocrine cell hyperplasia, subsequent upper endoscopy with biopsy and EUS did not show this.
Subjective
Subjective
Date of Service: March 25, 2024
Patient had multiple episodes of hematochezia overnight. Last bowel movement was about 30 minutes before I seen him and he said it was bright red and watery
Yesterday he did finish the magnesium citrate and drink at around noon
.
Objective
Data Reviewed
Laboratory Data:
Laboratory Results
03/25/24 05:52
Laboratory Results
PT Cancelled 03/23/24 16:04
INR Cancelled 03/23/24 16:04
APTT Cancelled 03/23/24 16:04
Total Bilirubin 0.6 mg/dl (0.2-1.3) 03/23/24 16:07
AST 35 U/L (17-59) 03/23/24 16:07
ALT 28 U/L (0-50) 03/23/24 16:07
Alkaline Phosphatase 52 U/L (38-126) 03/23/24 16:07
Vital Signs and I&O:
Vital Signs
Temp Pulse Resp BP Pulse Ox
98.2 F 71 16 115/56 100
03/25/24 07:40 03/25/24 07:40 03/25/24 07:40 03/25/24 07:40 03/25/24 07:40
I&O
03/24/24 03/25/24 03/26/24
06:59 06:59 06:59
Intake Total 4610 / 4610
Balance 4610 / 4610
Physical Exam
Physical Exam
HEENT: Anicteric
Cardiology: Normal Sinus Rhythm
Pulmonary: Clear
GI: Soft, Non Distended and Tender (mild tenderness in the LLQ with deep palpation)
Extremities: No Edema
Neuro: Non Focal
--- NOTE | 2024-03-25 16:02 | W.PN.UPDATE ---
Update Note
Progress Note Update
Just stopped by to see how he was doing. No significant rectal output. Had a smear of stool in the bedside commode. Is getting his first unit of blood right now
[2024-03-25] MEDS: TYLENOL 1000 MG PO (22:26)
[2024-03-25] MEDS: NSS IV (22:26)
[2024-03-25] MEDS: BENADRYL 50 MG PO (22:26)
[2024-03-26 01:08] LABS: Hematocrit 28.5 % (39.0-52.0)
[2024-03-26] MEDS: NSS 1000 IV (01:10)
[2024-03-26 06:21] LABS: Hematocrit 30.3 % (39.0-52.0); Hemoglobin 10.1 g/dL (13.0-18.0); Mean Corp Hgb Conc. 33.3 g/dL (33.0-37.0); Mean Corpuscular Hgb 32.1 pg (27.0-31.0); Mean Corpuscular Volume 96.2 fL (80.0-94.0); Platelet Count 107 10^3/uL (130-400); Red Blood Cell Count 3.15 10^6/uL (4.70-6.10); Red Cell Dist. Width 15.5 % (11.5-14.5); White Blood Cell Count 4.3 10^3/uL (4.8-10.8)
[2024-03-26 06:44] LABS: Blood Urea Nitrogen 13 mg/dl (9-20); Calcium 8.4 mg/dl (8.4-10.2); Carbon Dioxide 24 mmol/L (22-30); Chloride 109 mmol/L (98-107); Estimated Creatinine Clearance 82 ml/min; Glucose 99 mg/dl (70-99); Sodium 139 mmol/L (135-145); eGFR > 60.00
[2024-03-26 07:40] VITALS: BP 128/62
[2024-03-26] MEDS: PROZAC 20 MG PO (08:37)
[2024-03-26] MEDS: THERAGRAN 1 TABLET PO (08:37)
[2024-03-26] MEDS: ZYLOPRIM 300 MG PO (08:37)
[2024-03-26] MEDS: PROTONIX 40 MG PO (08:37)
[2024-03-26] MEDS: VITAMIN D3 (cholecalciferol) 125 MCG PO (08:37)
[2024-03-26] MEDS: B COMPLEX w/VITAMIN C 1 CAPLET PO (08:37)
--- NOTE | 2024-03-26 09:37 | W.PN.HOSP.TC ---
Today's Communication/Plan
-
advance diet
stop IVF
Assessment / Plan
Assessment / Plan
pt is a 79 year old male
Acute Rectal bleeding --bright red--concern for diverticular bleed, AVMs, hemorrhoidal--HX lower GI bleed (admitted 02/2018 status post colonoscopy showing diverticula--hemorrhoids with polypectomy in past)---HGB drop from 13.5 to 8.4 and
symptomatic--s/p 2 units pRBC up to 10.1 HGB--CTA abdomen/pelvis was negative-- now with diarrhea--check stool studies--stop IVF--advance diet
Essential HTN--hold lisinopril 20 mg daily as able--follow BPs
GERD--Continue omeprazole 20 mg daily--consider IV but if lower likely won't help
HLD-- Crestor 5 mg Wednesday
Depression--Continue fluoxetine 20 mg daily
Gout--Continue allopurinol 300 mg daily
Hx borderline DM 2--Current blood sugar 114
Insomnia--Takes Tylenol with Benadryl 2 tabs at bedtime
Hx bladder tumor with removal 12/20/2014
History elevated PSA/prostate cancer with prostatectomy 2020
Other PMH:
[place]
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
DVT prophylaxis
SCDs
DNR
Anticipated Discharge: 24 - 48 hours
Subjective/Interval History
-
Date of Service: March 26, 2024
pt c/o 2 bouts of diarrhea
Objective Data
-
Labs:
Laboratory Results
03/25/24 03/26/24 03/26/24
14:45 00:00 01:03
WBC
Hgb Cancelled Cancelled 10.0 L
Hct Cancelled Cancelled 28.5 L
Plt Count
Sodium
Potassium
Chloride
Carbon Dioxide
BUN
Creatinine
Glucose
Calcium
03/26/24
06:09
WBC 4.3 L
Hgb 10.1 L
Hct 30.3 L
Plt Count 107 L
Sodium 139
Potassium 4.0
Chloride 109 H
Carbon Dioxide 24
BUN 13
Creatinine 0.8
Glucose 99
Calcium 8.4
Vital Signs:
max temp for 24 hours
03/25/24
20:27
Temp 98.1 F
Vital Signs
Temp Pulse Resp BP Pulse Ox
97.9 F 64 18 128/62 97
03/26/24 07:40 03/26/24 07:40 03/26/24 07:40 03/26/24 07:40 03/26/24 07:40
I&O
03/25/24 03/26/24 03/27/24
06:59 06:59 06:59
Intake Total 4610 / 4610 2660 / 2660
Output Total 800 / 800
Balance 4610 / 4610 1860 / 1860
Review of Systems
-
All other systems: Reviewed and negative
Abdomen/GI: Reports Diarrhea; Denies Bloody Stools
Physical Exam
-
General: Well Developed, Well Nourished and No Apparent Distress
HEENT: Normocephalic and Atraumatic
Respiratory: Clear to Auscultation; Negative Wheezes or Rhonchi
Cardiac: Regular Rhythm and S1/S2; Negative Murmur
GI: Soft, Nontender, Nondistended and Normal Bowel Sounds
Musculoskeletal: No Clubbing, No Cyanosis and No Edema
Neuro: Awake
--- NOTE | 2024-03-26 09:40 | W.PN.GI.CBS2 ---
Today's Communication / Plan
-
-- stool studies
-- advance diet as tolerated
Assessment / Plan
-
79-year-old male with a past medical history of hypertension, hx bladder cancer, Hx IPMN, diabetes, hx prostate ca s/p prostatectomy without XRT, history of suspected diverticular bleeding about 4 yrs ago who presents with multiple episodes of
large-volume hematochezia who has been hemodynamically stable wtih a drop in hgb from normal baseline of 13 down to 8s.
#brown diarrhea and abdominal discomfort
--- will check stool studies\\
-- Ct was without oral contrast so bowel wall is limited
-- perhaps this was infectious? or perhaps its just the left over magnesium citrate
-- if he starts to feel better, ok for discharge
#Large volume hematochezia--
appears to have resolved, now just uncomfortable and brown diarrhea
DDx diverticular bleed vs. AVM vs. dieulafoy vs. stercoral ulcer/colitis vs. ischemia vs. IBD vs. malignancy
-Suspect diverticular due to known history of higgins-diverticulosis and history of 2 prior suspected diverticular bleeds
-- CTA negative for active bleeding on 03/24/24
-- agree with transfusion considering he started at 13 (received 2U and responded nicely)
-2 large bore peripheral gauge IVs
-- -Discussed with Dr. Carbajal
#Hx colon polyps
- 1x TA on last colonoscopy in 2020, recall 5 years
#Hx Duodenal polyp
-small TA in EGD with Dr. Olmstead in 2021, OP f/u
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
-Upper endoscopy in 2014 showed antral biopsy with features mild neuroendocrine cell hyperplasia, subsequent upper endoscopy with biopsy and EUS did not show this.
Total Time Spent with Patient (in minutes): 35
Subjective
Subjective
Date of Service: March 26, 2024
blood has stopped, now just bloated and uncomfortable - 2 episodes of brown diarrhea this morning
Objective
Data Reviewed
Laboratory Data:
Laboratory Results
03/26/24 06:09
03/26/24 06:09
Laboratory Results
PT Cancelled 03/23/24 16:04
INR Cancelled 03/23/24 16:04
APTT Cancelled 03/23/24 16:04
Magnesium 2.0 mg/dl (1.6-2.3) 03/26/24 06:09
Total Bilirubin 0.6 mg/dl (0.2-1.3) 03/23/24 16:07
AST 35 U/L (17-59) 03/23/24 16:07
ALT 28 U/L (0-50) 03/23/24 16:07
Alkaline Phosphatase 52 U/L (38-126) 03/23/24 16:07
Vital Signs and I&O:
Vital Signs
Temp Pulse Resp BP Pulse Ox
97.9 F 64 18 128/62 97
03/26/24 07:40 03/26/24 07:40 03/26/24 07:40 03/26/24 07:40 03/26/24 07:40
I&O
03/25/24 03/26/24 03/27/24
06:59 06:59 06:59
Intake Total 4610 / 4610 2660 / 2660
Output Total 800 / 800
Balance 4610 / 4610 1860 / 1860
Physical Exam
Physical Exam
HEENT: Anicteric
Pulmonary: Clear
GI: Soft and Distended (mildly tender)
Rectal: Brown
Extremities: No Edema
Neuro: Non Focal
--- NOTE | 2024-03-26 15:26 | CM ---
CM reviewed chart. PT signed off.
Discharge dispo remains home with no skilled discharge needs.
CM to follow and assist.
[2024-03-26 15:54] VITALS: BP 134/69
[2024-03-26] MEDS: BENADRYL 50 MG PO (21:03)
[2024-03-26] MEDS: TYLENOL 1000 MG PO (21:03)
[2024-03-26 23:20] VITALS: BP 116/70
[2024-03-27 06:21] LABS: Hematocrit 29.6 % (39.0-52.0); Hemoglobin 10.3 g/dL (13.0-18.0); Mean Corp Hgb Conc. 34.8 g/dL (33.0-37.0); Mean Corpuscular Hgb 32.8 pg (27.0-31.0); Mean Corpuscular Volume 94.3 fL (80.0-94.0); Mean Platelet Volume 10.6 fL (7.4-10.4); Platelet Count 134 10^3/uL (130-400); Red Blood Cell Count 3.14 10^6/uL (4.70-6.10); Red Cell Dist. Width 15.1 % (11.5-14.5); White Blood Cell Count 4.5 10^3/uL (4.8-10.8)
[2024-03-27 06:54] LABS: Blood Urea Nitrogen 16 mg/dl (9-20); Calcium 8.8 mg/dl (8.4-10.2); Carbon Dioxide 29 mmol/L (22-30); Chloride 108 mmol/L (98-107); Estimated Creatinine Clearance 82 ml/min; Glucose 96 mg/dl (70-99); Magnesium 2.1 mg/dl (1.6-2.3); Potassium 4.3 mmol/L (3.5-5.1); Sodium 139 mmol/L (135-145); eGFR > 60.00
[2024-03-27 07:50] VITALS: BP 139/78
[2024-03-27] MEDS: PROTONIX 40 MG PO (09:02)
[2024-03-27] MEDS: PROZAC 20 MG PO (09:02)
[2024-03-27] MEDS: B COMPLEX w/VITAMIN C 1 CAPLET PO (09:02)
[2024-03-27] MEDS: THERAGRAN 1 TABLET PO (09:02)
[2024-03-27] MEDS: VITAMIN D3 (cholecalciferol) 125 MCG PO (09:03)
[2024-03-27] MEDS: ZYLOPRIM 300 MG PO (09:03)
[2024-03-27] MEDS: CITROMA 300 ML PO (09:16)
--- NOTE | 2024-03-27 11:24 | CM ---
Patient seen at bedside with and physician. Patient states he is for a colonoscopy tomorrow due to recurrent bleeding. Patient confirmed and indicated that they were waiting for procedure. CM will continue to follow for discharge planning
needs.
Plan; home with no needs, vs VN watch for home O2 needs.
--- NOTE | 2024-03-27 11:24 | W.PN.HOSP.TC ---
Today's Communication/Plan
-
prepping for colonoscopy
Assessment / Plan
Assessment / Plan
pt is a 79 year old male
Acute Rectal bleeding --bright red--concern for diverticular bleed, AVMs, hemorrhoidal--HX lower GI bleed (admitted 02/2018 status post colonoscopy showing diverticula--hemorrhoids with polypectomy in past)---HGB drop from 13.5 to 8.4 and
symptomatic--s/p 2 units pRBC up to 10.1 HGB--CTA abdomen/pelvis was negative-- now with diarrhea-- stool studies that are back are negative, not all resulted yet--restart IVF
Essential HTN--hold lisinopril 20 mg daily as able--follow BPs
GERD--Continue omeprazole 20 mg daily--consider IV but if lower likely won't help
HLD-- Crestor 5 mg Wednesday
Depression--Continue fluoxetine 20 mg daily
Gout--Continue allopurinol 300 mg daily
Hx borderline DM 2--Current blood sugar 114
Insomnia--Takes Tylenol with Benadryl 2 tabs at bedtime
Hx bladder tumor with removal 12/20/2014
History elevated PSA/prostate cancer with prostatectomy 2020
Other PMH:
[place]
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
DVT prophylaxis
SCDs
DNR
Anticipated Discharge: 24 - 48 hours
Subjective/Interval History
-
Date of Service: March 27, 2024
pt had more bleeding this AM--now prepping for a colonoscopy
Objective Data
-
Labs:
Laboratory Results
03/27/24
05:15
WBC 4.5 L
Hgb 10.3 L
Hct 29.6 L
Plt Count 134 D
Sodium 139
Potassium 4.3
Chloride 108 H
Carbon Dioxide 29
BUN 16
Creatinine 0.8
Glucose 96
Calcium 8.8
Vital Signs:
max temp for 24 hours
03/26/24
15:54
Temp 98 F
Vital Signs
Temp Pulse Resp BP Pulse Ox
97.2 F 64 18 139/78 99
03/27/24 07:50 03/27/24 07:50 03/27/24 07:50 03/27/24 07:50 03/27/24 07:50
I&O
03/26/24 03/27/24 03/28/24
06:59 06:59 06:59
Intake Total 2660 / 2660 1320 / 1320
Output Total 800 / 800
Balance 1860 / 1860 1320 / 1320
Review of Systems
-
All other systems: Reviewed and negative
Abdomen/GI: Reports Bloody Stools
Physical Exam
-
General: Well Developed, Well Nourished and No Apparent Distress
HEENT: Normocephalic and Atraumatic
Respiratory: Clear to Auscultation; Negative Wheezes or Rhonchi
Cardiac: Regular Rhythm and S1/S2; Negative Murmur
GI: Soft, Nontender, Nondistended and Normal Bowel Sounds
Musculoskeletal: No Clubbing, No Cyanosis and No Edema
Neuro: Awake
Psych: Calm
[2024-03-27] MEDS: NSS 1000 IV (11:53)
--- NOTE | 2024-03-27 13:22 | W.PN.GI.CBS2 ---
Today's Communication / Plan
-
--- Colonoscopy prep for today
Assessment / Plan
-
79-year-old male with a past medical history of hypertension, hx bladder cancer, Hx IPMN, diabetes, hx prostate ca s/p prostatectomy without XRT, history of suspected diverticular bleeding about 4 yrs ago who presents with multiple episodes of
large-volume hematochezia who has been hemodynamically stable wtih a drop in hgb from normal baseline of 13 down to 8s.
#brown diarrhea and abdominal discomfort
--- Stool studies were negative including the WBC
-- Ct was without oral contrast so bowel wall is limited
-- perhaps this was infectious? or perhaps its just the left over magnesium citrate
--Since he is now back to having small reddish stools, will proceed to at least a flexible sigmoidoscopy to get biopsies and determine source of bleeding
#Large volume hematochezia--
appears to have resolved, now just uncomfortable and brown diarrhea
-- Now he is back to having small bloody stools, not as large-volume as before
DDx diverticular bleed vs. AVM vs. dieulafoy vs. stercoral ulcer/colitis vs. ischemia vs. IBD vs. malignancy
-Suspect diverticular due to known history of higgins-diverticulosis and history of 2 prior suspected diverticular bleeds
-- CTA negative for active bleeding on 03/24/24
--Status post transfusion he started at 13 (received 2U and responded nicely)
-2 large bore peripheral gauge IVs
-- -Discussed with Dr. Carbajal
#Hx colon polyps
- 1x TA on last colonoscopy in 2020, recall 5 years
#Hx Duodenal polyp
-small TA in EGD with Dr. Olmstead in 2021, OP f/u
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
-Upper endoscopy in 2014 showed antral biopsy with features mild neuroendocrine cell hyperplasia, subsequent upper endoscopy with biopsy and EUS did not show this.
Subjective
Subjective
Date of Service: March 27, 2024
Patient has no significant abdominal pain but continues to have smears of blood
Objective
Data Reviewed
Laboratory Data:
Laboratory Results
03/27/24 05:15
03/27/24 05:15
Laboratory Results
PT Cancelled 03/23/24 16:04
INR Cancelled 03/23/24 16:04
APTT Cancelled 03/23/24 16:04
Magnesium 2.1 mg/dl (1.6-2.3) 03/27/24 05:15
Total Bilirubin 0.6 mg/dl (0.2-1.3) 03/23/24 16:07
AST 35 U/L (17-59) 03/23/24 16:07
ALT 28 U/L (0-50) 03/23/24 16:07
Alkaline Phosphatase 52 U/L (38-126) 03/23/24 16:07
Vital Signs and I&O:
Vital Signs
Temp Pulse Resp BP Pulse Ox
97.2 F 64 18 139/78 99
03/27/24 07:50 03/27/24 07:50 03/27/24 07:50 03/27/24 07:50 03/27/24 07:50
I&O
03/26/24 03/27/24 03/28/24
06:59 06:59 06:59
Intake Total 2660 / 2660 1320 / 1320
Output Total 800 / 800
Balance 1860 / 186 1320 / 1320
Physical Exam
Physical Exam
HEENT: Anicteric
Pulmonary: Clear
GI: Soft, Non Distended and Non Tender
Rectal: Red
Extremities: No Edema
Neuro: Non Focal
[2024-03-27 16:00] VITALS: BP 116/72
[2024-03-27 16:15] VITALS: BP 133/71
[2024-03-27 16:30] VITALS: BP 131/68
[2024-03-27 16:59] VITALS: BP 130/76
--- NOTE | 2024-03-27 17:02 | W.PN.UPDATE ---
Update Note
Progress Note Update
GI will sign off, please call with any questions or issues. No follow up necessary for the GIB
[2024-03-27] MEDS: CRESTOR 5 MG PO (17:50)
[2024-03-27] MEDS: BENADRYL 50 MG PO (21:01)
[2024-03-27] MEDS: TYLENOL 1000 MG PO (21:01)
[2024-03-27 23:53] VITALS: BP 101/65
[2024-03-28] MEDS: NSS 1000 IV (00:36)
[2024-03-28 06:22] LABS: Hematocrit 29.9 % (39.0-52.0); Hemoglobin 10.2 g/dL (13.0-18.0); Mean Corp Hgb Conc. 34.1 g/dL (33.0-37.0); Mean Corpuscular Volume 93.7 fL (80.0-94.0); Platelet Count 155 10^3/uL (130-400); Red Blood Cell Count 3.19 10^6/uL (4.70-6.10); White Blood Cell Count 4.6 10^3/uL (4.8-10.8)
[2024-03-28 06:54] LABS: Blood Urea Nitrogen 12 mg/dl (9-20); Calcium 8.6 mg/dl (8.4-10.2); Carbon Dioxide 22 mmol/L (22-30); Chloride 111 mmol/L (98-107); Estimated Creatinine Clearance 94 ml/min; Glucose 99 mg/dl (70-99); Magnesium 2.1 mg/dl (1.6-2.3); Potassium 4.6 mmol/L (3.5-5.1); Sodium 139 mmol/L (135-145); eGFR > 60.00
[2024-03-28 07:50] VITALS: BP 136/65
[2024-03-28] MEDS: PROTONIX 40 MG PO (08:18)
[2024-03-28] MEDS: VITAMIN D3 (cholecalciferol) 125 MCG PO (08:18)
[2024-03-28] MEDS: THERAGRAN 1 TABLET PO (08:18)
[2024-03-28] MEDS: PROZAC 20 MG PO (08:18)
[2024-03-28] MEDS: B COMPLEX w/VITAMIN C 1 CAPLET PO (08:18)
[2024-03-28] MEDS: ZYLOPRIM 300 MG PO (08:18)
--- NOTE | 2024-03-28 09:43 | W.PN.HOSP.TC ---
Addendum entered and electronically signed by Nessa Sarmiento MD 04/13/24 18:48:
Acute Blood Loss Anemia
-2/2 likely diverticular bleed
Hg stable prior to DC
Original Note:
Today's Communication/Plan
-
F/U GI eval on continuous bloody discharge
Assessment / Plan
Assessment / Plan
pt is a 79 year old male
Acute Rectal bleeding --bright red--concern for diverticular bleed, AVMs, hemorrhoidal--HX lower GI bleed (admitted 02/2018 status post colonoscopy showing diverticula--hemorrhoids with polypectomy in past)---HGB drop from 13.5 to 8.4 and
symptomatic--s/p 2 units pRBC up to 10.1 HGB--CTA abdomen/pelvis was negative-- now with diarrhea-- stool studies that are back are negative
-s/p colnoscopy without e/o fina bleeding
-patient continues to complain hourly bloody discharge. Not sure source - texted GI to review
Essential HTN--hold lisinopril 20 mg daily as able--follow BPs
GERD--Continue omeprazole 20 mg daily-
HLD-- Crestor 5 mg Wednesday
Depression--Continue fluoxetine 20 mg daily
Gout--Continue allopurinol 300 mg daily
Hx borderline DM 2--Current blood sugar 114
Insomnia--Takes Tylenol with Benadryl 2 tabs at bedtime
Hx bladder tumor with removal 12/20/2014
History elevated PSA/prostate cancer with prostatectomy 2020
Other PMH:
[place]
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
DVT prophylaxis
SCDs
DNR
Anticipated Discharge: Within 24 hours
Subjective/Interval History
-
Date of Service: March 28, 2024
patient describes bloody discharge from rectum every hour filling up about half tissue paper
no abdominal pain
eating and drinking well
Objective Data
-
Labs:
Laboratory Results
03/28/24
06:08
WBC 4.6 L
Hgb 10.2 L
Hct 29.9 L
Plt Count 155
Sodium 139
Potassium 4.6
Chloride 111 H
Carbon Dioxide 22
BUN 12
Creatinine 0.7
Glucose 99
Calcium 8.6
Vital Signs:
Vital Signs
Temp Pulse Resp BP Pulse Ox
97.9 F 68 18 136/65 97
03/28/24 07:50 03/28/24 07:50 03/28/24 07:50 03/28/24 07:50 03/28/24 07:50
I&O
03/27/24 03/28/24 03/29/24
06:59 06:59 06:59
Intake Total 1320 / 1320 1680 / 1680
Balance 1320 / 1320 1680 / 1680
Review of Systems
-
History Source: Patient
All other systems: Reviewed and negative
Physical Exam
-
General: Well Developed, Well Nourished and No Apparent Distress
HEENT: Normocephalic and Atraumatic
Respiratory: Clear to Auscultation; Negative Wheezes or Rhonchi
Cardiac: Regular Rhythm and S1/S2; Negative Murmur
GI: Soft, Nontender, Nondistended and Normal Bowel Sounds
Musculoskeletal: No Clubbing, No Cyanosis and No Edema
Neuro: Awake
Psych: Calm
Data Reviewed
-
Diagnostic Radiology: Report Reviewed by me
Labs: Labs Reviewed by me
--- NOTE | 2024-03-28 10:27 | CM ---
Patient seen at bedside. Patient to transport home when discharged. Patient IMM completed and signed form placed on chart. Patient declined need for VN and stated that he plans for discharge today and is awaiting confirmation of discharge from
physician. CM will continue to follow for discharge planning needs.
Plan; home with no needs
--- NOTE | 2024-03-28 11:35 | W.PN.GI.CBS2 ---
Today's Communication / Plan
-
etiology of bleeding related to diverticular source vs other
s/p colonoscopy as noted
some small amount of bleeding overnight last stool 10 am no blood
hbg stable 10.2
stable from GI for discharge today
instructed to call GI for any recurrent bleeding and if large volume return to ER
reviewed with Dr. Sarmiento and Dr. Olmstead via tiger text
Assessment / Plan
-
79-year-old male with a past medical history of hypertension, hx bladder cancer, Hx IPMN, diabetes, hx prostate ca s/p prostatectomy without XRT, history of suspected diverticular bleeding about 4 yrs ago who presents with multiple episodes of
large-volume hematochezia who has been hemodynamically stable wtih a drop in hgb from normal baseline of 13 down to 8s.
03/27 colonoscopy No blood throughout the colon. A surgically absent prostate found on digital rectal exam Non-bleeding external and internal hemorrhoids.
- Diverticulosis in the entire examined colon - Three small polyps in the transverse colon and in the ascending colon, removed with a cold snare.
Resected and retrieved. Otherwise normal to terminal ileum.
-rectal bleeding with large volume hematochezia on admission
-small amount bleeding post colonoscopy
- history of 2 prior suspected diverticular bleeds
-Hx colon polyps
- 1x TA on last colonoscopy in 2020, recall 5 years
-Hx Duodenal polyp
-small TA in EGD with Dr. Olmstead in 2021, OP f/u
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
-Upper endoscopy in 2014 showed antral biopsy with features mild neuroendocrine cell hyperplasia, subsequent upper endoscopy with biopsy and EUS did not show this.
PLAN:
etiology of bleeding related to diverticular source vs other
s/p colonoscopy as noted
some small amount of bleeding overnight last stool 10 am no blood
hbg stable 10.2
stable from GI for discharge today
instructed to call GI for any recurrent bleeding and if large volume return to ER
reviewed with Dr. Sarmiento and Dr. Olmstead via tiger text
Subjective
Subjective
Date of Service: March 28, 2024
asked to reassess for rectal bleeding
Objective
Data Reviewed
Laboratory Data:
Laboratory Results
03/28/24 06:08
03/28/24 06:08
Laboratory Results
PT Cancelled 03/23/24 16:04
INR Cancelled 03/23/24 16:04
APTT Cancelled 03/23/24 16:04
Magnesium 2.1 mg/dl (1.6-2.3) 03/28/24 06:08
Total Bilirubin 0.6 mg/dl (0.2-1.3) 03/23/24 16:07
AST 35 U/L (17-59) 03/23/24 16:07
ALT 28 U/L (0-50) 03/23/24 16:07
Alkaline Phosphatase 52 U/L (38-126) 03/23/24 16:07
Vital Signs and I&O:
Vital Signs
Temp Pulse Resp BP Pulse Ox
97.9 F 68 18 136/65 97
03/28/24 07:50 03/28/24 07:50 03/28/24 07:50 03/28/24 07:50 03/28/24 07:50
I&O
03/27/24 03/28/24 03/29/24
06:59 06:59 06:59
Intake Total 1320 / 1320 1680 / 1680
Balance 1320 / 1320 1680 / 1680
Physical Exam
Physical Exam
HEENT: Anicteric and Moist mucous membranes
Cardiology: Normal Sinus Rhythm
Pulmonary: Clear
GI: Soft, Non Distended and Non Tender
Extremities: No Edema
Neuro: Non Focal
--- NOTE | 2024-03-28 12:11 | W.DS.TRANS ---
DC Summary - [employer]
-
Discharge Instructions:
Discharge Diagnosis/Procedures hematochezia
Diet Regular
Activity As tolerated
Driving Restrictions As prior to admission
Bathing Restrictions None
Instructions:
Stand-Alone Forms:
Changes to Home Medications: No
Discharge Medications:
DC Medications w/original date entered in [employer]
fluoxetine 20 mg capsule 20 mg PO DAILY Mental Health/Anxiety 02/23/18
vitamin B complex 1 tab PO DAILY Supplement 02/23/18
allopurinol 300 mg tablet 300 mg PO DAILY Gout 09/13/18
omeprazole 20 mg capsule,delayed release 20 mg PO DAILY Gastrointestinal issue 09/13/18
cholecalciferol (vitamin D3) 125 mcg (5,000 unit) disintegrating tablet 125 mcg PO DAILY Supplement 12/23/19
ascorbic acid (vitamin C) 500 mg tablet (Vitamin C) 500 mg PO DAILY Supplement 01/15/21
multivitamin 1 ea PO DAILY Supplement 01/15/21
diphenhydramine 25 mg-acetaminophen 500 mg tablet (Tylenol PM Extra Strength) 2 tab PO HS 03/23/24
lisinopril 20 mg tablet 20 mg PO DAILY 03/23/24
naproxen 500 mg tablet (Naprosyn) 500 mg PO BID PRN mild pain 03/23/24
rosuvastatin 5 mg tablet 5 mg PO MOWEFR 03/23/24
docusate sodium 100 mg capsule 100 mg PO BID #60 caps 03/28/24
Home Medication Changes
Pending Results: Yes
Additional Pending Results:
path from Colonoscopy
[2024-03-28 13:20] VITALS: BP 144/84
[2024-03-28 15:26] VITALS: BP 144/84
--- NOTE | 2024-03-28 15:51 | W.DCSUMMARY ---
Discharge Summary
Discharge Data
Date of Admission: 03/23/24
Date of Discharge: 03/28/24
-
Pending Results: Yes
Additional Pending Results:
pathology from colonoscopy
Hospital Course
Discharging Physician : Dr. Nessa Sarmiento
Disposition : Home
Primary care physician : Dr. Isaiah Boyce
Principal Discharge diagnosis : Hematochezia
Hospital Course :
Mr. Angelito Houston is a 79-year-old male with a past medical history of hypertension, hx bladder cancer, prostate ca s/p prostatectomy, DM, history of diverticular bleeding who presents with multiple episodes of large-volume hematochezia. Triage
vitals stable. Labs with Hg 13.5, drop to 9.9 following day then 8.4. He was symptomatic and required 2 units PRBC. CTA abdomen/pelvis obtained which showed no evidence of bleeding. Stool studies tested and negative. Colonoscopy results below,
no evidence of bleeding. Patient's Hg remained stable prior to discharge and he had brown stool. Etiology of bleeding thought to be diverticular. He will follow up closely with PCP as outpatient.
Time spent on discharge was 35 minutes.
Important imaging findings :
Abdomen/Pelvis CT 03/24/24
IMPRESSION:
1. No CTA evidence for active GI bleed.
2. No abdominal aortic aneurysm or dissection.
3. No significant acute abnormality identified in the abdomen or pelvis within the limits of this exam, as described above.
Procedure findings :
Colonoscopy 03/27/24
Impression: No blood throughout the colon.
- A surgically absent prostate found on digital rectal
exam.
- Non-bleeding external and internal hemorrhoids.
- Diverticulosis in the entire examined colon.
- Three small polyps in the transverse colon and in
the ascending colon, removed with a cold snare.
Resected and retrieved.
- Otherwise normal to terminal ileum.
Recommendation: - Patient has a contact number available for
emergencies. The signs and symptoms of potential
delayed complications were discussed with the patient.
Return to normal activities tomorrow. Written
discharge instructions were provided to the patient.
- Resume previous diet.
- Continue present medications.
- Await pathology results.
- No repeat colonoscopy due to age and absence of
advanced adenomas.
- The findings and recommendations were discussed with
the patient.
- My office will call you in 1-2 weeks with the biopsy
results.
Discharge Plan
-
Patient Disposition: Home (Routine Discharge)
Discharge Diagnosis/Procedures: hematochezia
Diet: Regular
Activity: As tolerated
Driving Restrictions: As prior to admission
Bathing Restrictions: None
Referrals:
Isaiah Boyce MD [Family Provider] - in less than 1 week
Monica Victor DO [Active] - (call Dr. Victor for any recurrent bleeding after admission. If large volume bleeding return to ER.)
Prescriptions:
Continued
vitamin B complex 1 TAB tablet
1 tab PO DAILY
fluoxetine 20 MG capsule
20 mg PO DAILY
omeprazole 20 MG capsule,delayed release(DR/EC)
20 mg PO DAILY
allopurinol 300 MG tablet
300 mg PO DAILY
cholecalciferol (vitamin D3) 125 MCG tablet,disintegrating
125 mcg PO DAILY
multivitamin 1 EACH tablet
1 ea PO DAILY
ascorbic acid (vitamin C) [Vitamin C] 500 MG tablet
500 mg PO DAILY
lisinopril 20 mg tablet
20 mg PO DAILY
Tylenol PM Extra Strength 25-500 mg Tablet
2 tab PO HS
rosuvastatin 5 mg tablet
5 mg PO MOWEFR
naproxen [Naprosyn] 500 MG tablet
500 mg PO BID PRN (Reason: mild pain)
docusate sodium 100 MG capsule
100 mg PO BID Qty: 60 0RF
Rx Instructions:
get over the counter. hold for loose stools
Discharge Orders:
Discharge Patient (As Directed); Ordered 03/28/24
Ordered By: Nessa Sarmiento
Discharge Date and Time
Discharge Date/Time: 03/28/24 14:26
Print Language: JAPANESE
--- NOTE | 2024-04-05 15:21 | PN.CDI ---
CDI
- -
CDI:
Physician Documentation Request
Admit Date: 03/23/24 19:40
Dear Doctor Guillermina,
Patient admitted with hematochezia.
03/28 PN, 'Acute Rectal bleeding --bright red-HGB drop from 13.5 to 8.4 and symptomatic--s/p 2 units pRBC up to 10.1 HGB.'
Based on the above, could you clarify, in your progress note, which of the following is the most likely diagnosis you are evaluating, monitoring and/or treating?
Acute blood loss anemia
Insignificant abnormal lab findings
Other
Use of terms such as suspected, likely, concern for, or probable (associated with a specific diagnosis that is being evaluated, monitored, or treated as if it exists) are acceptable and can be coded in the inpatient setting, when documented at the
time of discharge.
Thank you,
Debbie VENTURA,RN,CCDS
CDI Specialist
Available via [employer] text
Please use your independent medical judgment in providing your response.
== END 2024-03-28 14:26 | disposition home or self-care (01) | DRG 378 ==
LOC: 2 NORTH 19:40
PROVIDERS: Clinical Nurse Specialist Family Health; Internal Medicine; Pediatrics; ADMITTING PHYSICIAN Hospitalist; ATTENDING PHYSICIAN Student in an Organized Health Care Education/Training Program; EMERGENCY PHYSICIAN Emergency Medicine; FAMILY PHYSICIAN Family Medicine; OTHER PHYSICIAN Internal Medicine
PROC: 30233N1 Transfusion of Nonautologous Red Blood Cells into Peripheral Vein, Percutaneous Approach (ICD-10-PCS; 2024-03-25)
PROC: 0DBL8ZX Excision of Transverse Colon, Via Natural or Artificial Opening Endoscopic, Diagnostic (ICD-10-PCS; 2024-03-27)
PROC: 0DBK8ZX Excision of Ascending Colon, Via Natural or Artificial Opening Endoscopic, Diagnostic (ICD-10-PCS; 2024-03-27)
DX: K57.31 Diverticulosis of large intestine without perforation or abscess with bleeding (principal); D62 Acute posthemorrhagic anemia; F32.A Depression, unspecified; I10 Essential (primary) hypertension; E78.5 Hyperlipidemia, unspecified; G47.00 Insomnia, unspecified; K63.5 Polyp of colon; M10.9 Gout, unspecified; N40.0 Benign prostatic hyperplasia without lower urinary tract symptoms; E11.9 Type 2 diabetes mellitus without complications; R97.20 Elevated prostate specific antigen [PSA]; K64.8 Other hemorrhoids; K21.9 Gastro-esophageal reflux disease without esophagitis; M51.36 Other intervertebral disc degeneration, lumbar region; Z66 Do not resuscitate; Z87.19 Personal history of other diseases of the digestive system; Z87.891 Personal history of nicotine dependence; Z85.46 Personal history of malignant neoplasm of prostate; Z85.51 Personal history of malignant neoplasm of bladder; Z90.79 Acquired absence of other genital organ(s); Z88.1 Allergy status to other antibiotic agents; Z88.5 Allergy status to narcotic agent; Z85.828 Personal history of other malignant neoplasm of skin
CPT/HCPCS: 88305; 74174; 80048; 80053; 83735; 85014; 85018; 85025; 85027; 86803; 86850; 86900; 86901; 86920; 87045; 87046; 87077; 87324; 87427; 87449; 89055; 93005; 96360; 97161; 97165; 99285; P9016; Q9967

== ENCOUNTER → 2024-04-12 14:55 | Outpatient (REF) | payer MEDICARE, OTHER, SELFPAY ==
[2024-04-12 16:05] LABS: % Basophils 0.3 % (0-2); % Eosinophils 1.5 % (0-6); % Immature Granulocytes 0.5 % (0-0.5); % Lymphocytes 23.3 % (20.5-51.1); % Monocytes 9.8 % (1.7-9.3); % Neutrophils 64.6 % (42.2-75.2); Absolute Eosinophils 0.1 10^3/uL (0-0.7); Absolute Lymphocytes 1.5 10^3/uL (1.2-3.4); Absolute Monocytes 0.6 10^3/uL (0.1-0.6); Absolute Neutrophils 4.2 10^3/uL (1.4-6.5); Hematocrit 36.6 % (39.0-52.0); Hemoglobin 12.2 g/dL (13.0-18.0); Mean Corp Hgb Conc. 33.3 g/dL (33.0-37.0); Mean Corpuscular Hgb 32.4 pg (27.0-31.0); Mean Corpuscular Volume 97.1 fL (80.0-94.0); Mean Platelet Volume 10.4 fL (7.4-10.4); Nucleated Red Blood Cells % 0 % (-); Platelet Count 227 10^3/uL (130-400); Red Blood Cell Count 3.77 10^6/uL (4.70-6.10); Red Cell Dist. Width 14.8 % (11.5-14.5); White Blood Cell Count 6.6 10^3/uL (4.8-10.8)
[2024-04-12 16:17] LABS: Iron 69 ug/dl (49-181)
[2024-04-12 16:26] LABS: Percent Saturation 22 % (20-50); Total Iron Binding Capacity 312 ug/dl (261-462)
[2024-04-12 16:54] LABS: Ferritin 27.2 ng/ml (17.9-464.0)
== END ==
LOC: REG 14:55
PROVIDERS: ATTENDING PHYSICIAN Family Medicine
DX: K92.2 Gastrointestinal hemorrhage, unspecified (principal); K57.30 Diverticulosis of large intestine without perforation or abscess without bleeding
CPT/HCPCS: 36415; 82728; 83540; 83550; 85025

== ENCOUNTER → 2024-05-05 06:34 | Outpatient (REF) | payer MEDICARE, OTHER, SELFPAY ==
[2024-05-06 17:51] LABS: PSA, Ultrasensitive 0.18 ng/mL (0.00-4.00)
== END ==
LOC: REG 06:34
PROVIDERS: ATTENDING PHYSICIAN Specialist; FAMILY PHYSICIAN Family Medicine
DX: C61 Malignant neoplasm of prostate (principal)
CPT/HCPCS: 36415; 84153

== ENCOUNTER → 2024-05-26 10:42 | Outpatient (REF) | payer MEDICARE, OTHER, SELFPAY | LOC: MRI 3T 10:42 | PROVIDERS: ATTENDING PHYSICIAN Nurse Practitioner Family; FAMILY PHYSICIAN Family Medicine | DX: K86.2 Cyst of pancreas (principal) | CPT/HCPCS: 74183; A9575 ==

== ENCOUNTER → 2024-06-22 06:44 | Day surgery (SDC) | payer MEDICARE, OTHER, SELFPAY | LOC: GI 06:44 | PROVIDERS: ATTENDING PHYSICIAN Internal Medicine Gastroenterology | DX: K44.9 Diaphragmatic hernia without obstruction or gangrene (principal); K31.7 Polyp of stomach and duodenum; K31.89 Other diseases of stomach and duodenum | CPT/HCPCS: 43239; 88305 ==

== ENCOUNTER 2024-07-04 06:09 | Outpatient (RCR) | payer MEDICARE, OTHER, SELFPAY | END 2024-07-04 23:59 | disposition home or self-care (01) | LOC: RPT 06:09 | PROVIDERS: ATTENDING PHYSICIAN Internal Medicine Gastroenterology; FAMILY PHYSICIAN Family Medicine | DX: M62.89 Other specified disorders of muscle (principal); R15.9 Full incontinence of feces; Z73.6 Limitation of activities due to disability | CPT/HCPCS: 97162; 97530 ==

== ENCOUNTER 2024-08-03 09:49 | Outpatient (RCR) | payer MEDICARE, OTHER, SELFPAY | END 2024-08-03 23:59 | disposition home or self-care (01) | LOC: RPT 09:49 | PROVIDERS: ATTENDING PHYSICIAN Internal Medicine Gastroenterology; FAMILY PHYSICIAN Family Medicine | DX: M62.89 Other specified disorders of muscle (principal); R15.9 Full incontinence of feces; M62.81 Muscle weakness (generalized); R27.8 Other lack of coordination; Z73.6 Limitation of activities due to disability | CPT/HCPCS: 97014; 97112; 97530 ==

== ENCOUNTER → 2024-08-11 06:52 | Outpatient (REF) | payer MEDICARE, OTHER, SELFPAY ==
[2024-08-11 07:36] LABS: % Basophils 0.1 % (0-2); % Eosinophils 1.3 % (0-6); % Immature Granulocytes 0.7 % (0-0.5); % Lymphocytes 22.6 % (20.5-51.1); % Monocytes 10.7 % (1.7-9.3); % Neutrophils 64.6 % (42.2-75.2); Absolute Eosinophils 0.1 10^3/uL (0-0.7); Absolute Immature Granulocytes 0.1 10^3/uL (0-0.05); Absolute Lymphocytes 1.6 10^3/uL (1.2-3.4); Absolute Monocytes 0.7 10^3/uL (0.1-0.6); Absolute Neutrophils 4.5 10^3/uL (1.4-6.5); Hematocrit 39.5 % (39.0-52.0); Hemoglobin 13.2 g/dL (13.0-18.0); Mean Corp Hgb Conc. 33.4 g/dL (33.0-37.0); Mean Corpuscular Hgb 32.3 pg (27.0-31.0); Mean Corpuscular Volume 96.6 fL (80.0-94.0); Mean Platelet Volume 10.1 fL (7.4-10.4); Nucleated Red Blood Cells % 0 % (-); Platelet Count 190 10^3/uL (130-400); Red Blood Cell Count 4.09 10^6/uL (4.70-6.10); Red Cell Dist. Width 16.3 % (11.5-14.5); White Blood Cell Count 6.9 10^3/uL (4.8-10.8)
== END ==
LOC: REG 06:52
PROVIDERS: ATTENDING PHYSICIAN Internal Medicine Gastroenterology; FAMILY PHYSICIAN Family Medicine
DX: K58.0 Irritable bowel syndrome with diarrhea (principal)
CPT/HCPCS: 36415; 82653; 82705; 83993; 85025; 89055

== ENCOUNTER 2024-08-21 18:18 | Inpatient (IN) | payer MEDICARE, OTHER, SELFPAY ==
[2024-08-21] VITALS (12 sets, daily range): BP systolic 101–136; BP diastolic 46–93; BMI 24.6
--- NOTE | 2024-08-21 11:31 | ED.GENMED ---
ED Provider Triage
<Ramy Newsome PA-C - Last Filed: 08/21/24 11:32>
-
Patient seen by provider in Triage?: Seen in Triage
79-year-old male with black stools over several days. He denies abdominal pain. He is not anticoagulated. He has a history of rectal bleeding in the past. No syncopal episodes.
Will check labs and type and screen.
History of Present Illness
<Ramy Newsome PA-C - Last Filed: 08/21/24 11:32>
General
Chief Complaint: Rectal Bleeding
Time Seen by Provider: 08/21/24 13:51
<Luh Ch PA-C - Last Filed: 08/21/24 18:38>
General
Source: patient
Exam Limitations: none
Nursing documentation reviewed up to this point in time: agreed with
History of Present Illness
History of Present Illness:
Patient is a 79-year-old male with past medical history of extensive diverticular disease, previous GI bleeding requiring blood transfusions, hypertension, diabetes, prostatectomy, who presents to the emergency department for evaluation of rectal
bleeding and abdominal discomfort. Patient reports that the bleeding started 3 days ago. He reports that since then he has had approximately 3 episodes of rectal bleeding per day. Patient reports that the stool will be dark or black and then will
have some bright red blood mixed in. Patient reports that he has seen some blood in his underwear and also on the toilet paper after wiping. Patient reports some mild abdominal discomfort. Patient denies any nausea or vomiting. Patient does
endorse some lightheadedness. Patient denies chest pain, shortness of breath. Patient denies any change in his urinary habits. Patient reports that his last colonoscopy was in March at which time he was also admitted here for similar presentation.
Past History
<Ramy Newsome PA-C - Last Filed: 08/21/24 11:32>
Past History
ED Past Medical History: Cancer (prostate), HTN, Other (Lower GI bleed) and Other (Gout, benign prostatic hypertrophy, borderline diabetes. depression, previous known hemorrhoids and polypectomy); Negative Arrthythmia
ED Past Surgical History: Orthopedic and Urological; Negative Cardiac
Social History
Tobacco: Former smoker
Alcohol: Daily
Drug: None
Personal:
Living: with family
Employment: Retired
Family History
Family History: Other (Noncontributory)
Review of Systems
<Luh Ch PA-C - Last Filed: 08/21/24 18:38>
Review of Systems
Allergies reviewed?: Yes
All Other Systems: ROS reviewed and negative except as documented in HPI and ROS
Constitutional: Reports no symptoms
EENT: Reports no symptoms
Respiratory: Reports no symptoms
Cardiac: Reports no symptoms
ABD/GI: Reports abdominal pain, bloody stools and black stools; Denies nausea or vomiting
: Reports no symptoms; Denies bleeding
Musculoskeletal: Reports no symptoms
Skin: Reports no symptoms
Neurological: Reports other (lightheadedness)
Endocrine: Reports no symptoms
Hematologic/Lymphatic: Reports no symptoms
Psychiatric: Reports no symptoms
Phy Exam
<Luh Ch PA-C - Last Filed: 08/21/24 18:38>
General Physical Exam
General Presentation: well appearing and no apparent distress
General Skin: warm and dry
General Habitus: normal
General Mental: alert
General Hydration: appears well hydrated
ENT Exam
ENT Exam: EOMI, pharynx normal, neck supple and normocephalic
Eye Exam
Eye Exam: PERRL, cornea clear and conjunctiva normal
Cardiovascular Exam
Cardiovascular Exam: regular rate/rhythm, no edema, no murmur and normal peripheral pulses
Pulmonary Exam
Pulmonary Exam: lungs clear, no respiratory distress, no rales, no crackles, no rhonchi, no stridor, no wheezing and no cough
Gastrointestinal Exam
Gastrointestinal Exam: normal bowel sounds, soft, no organomegaly, no pulsatile mass and non distended
Palpation: left upper quadrant: Mild tenderness and left lower quadrant: Mild tenderness
Rectal Exam: other (scant bright red blood on the glove, heme positive)
Neurological Exam
Neurological Exam: alert, oriented x3, no motor deficits and speech normal
Musculoskeletal Exam
Musculoskeletal Exam: full ROM and no edema
Skin Exam
Skin Exam: normal color, warm/dry, no rash and no petechia
Psychiatric Exam
Psychiatric Exam: normal mood/affect
Course
<Ramy Newsome PA-C - Last Filed: 08/21/24 11:32>
Orders/Labs/Results
Orders:
Orders
08/21/24 11:35
Type+Screen Urgent
Complete Blood Count/With Diff Urgent
Comprehensive Metabolic Panel Urgent
08/21/24 14:09
CT Abd/pelvis W Iv Cont Urgent
Comment:
Reason For Exam: left abd pain, gi bleed, hx of diverticulitis
08/21/24 17:21
Admit/Transfer Patient As Directed
Co-Sign Provider:
Level of Care: Inpatient admission
Assign to:: Telemetry
Physician / Group: Hospitalist
Diagnosis: GI Bleeding
Reason for Telemetry: Medication for Arrhythmia
Date to Stop Telemetry: 08/23/24
Time to Stop Telemetry: 11:00
Reason for Hospitalization: .
Expected length of stay greater than two midnights?: Yes
ELOS- Estimated Length of Stay in days: 3
I certify the patient meets the requirements for IP care: Yes
08/21/24 17:22
PRN Pain Medication Management As Directed
May give lesser potent ordered pain med per pt: Yes
preference::
Protocol:: Medication orders for pain may be administered in a
manner that supports deferring to patient preference
when the pt is:
- Requesting an ordered lesser potent pain medication.
Least to most potent pain medications are defined
as: acetaminophen < NSAID < tramadol < opioids
(morphine, oxycodone, hydromorphone).
- Requesting a lesser dose of the same medication IF
ORDERED.
- Requesting a less intrusive route of administration
if both routes are prescribed by the provider (PO <
IV).
08/21/24 17:23
Code Status As Directed
Resuscitation Status: Full Code
08/23/24 11:00
DC Protocol for Telemetry ONCE
Abnormal Lab Results
08/21/24
11:35
RBC 3.56 L 10^6/uL
(4.70-6.10)
Hgb 11.2 L g/dL
(13.0-18.0)
Hct 33.7 L %
(39.0-52.0)
MCV 94.7 H fL
(80.0-94.0)
MCH 31.5 H pg
(27.0-31.0)
RDW 15.6 H %
(11.5-14.5)
Absolute Monos (auto) 0.8 H 10^3/uL
(0.1-0.6)
Immature Gran % 0.6 H %
(0-0.5)
Monocytes % 14.7 H %
(1.7-9.3)
Alkaline Phosphatase 36 L U/L
(38-126)
08/21/24 11:35
08/21/24 11:35
Vital Signs
Initial and Last Documented VS:
Initial Vital Signs
Temp Pulse Resp BP Pulse Ox
98.3 F 75 18 136/78 98
08/21/24 11:28 08/21/24 11:28 08/21/24 11:28 08/21/24 11:28 08/21/24 11:28
Last Documented Vital Signs
Temp Pulse Resp BP Pulse Ox
98.3 F 75 21 115/93 93
08/21/24 11:28 08/21/24 18:26 08/21/24 18:34 08/21/24 18:33 08/21/24 18:34
<Luh Ch PA-C - Last Filed: 08/21/24 18:38>
Orders/Labs/Results
Orders:
Orders
08/21/24 11:35
Type+Screen Urgent
Complete Blood Count/With Diff Urgent
Comprehensive Metabolic Panel Urgent
08/21/24 14:09
CT Abd/pelvis W Iv Cont Urgent
Comment:
Reason For Exam: left abd pain, gi bleed, hx of diverticulitis
08/21/24 17:21
Admit/Transfer Patient As Directed
Co-Sign Provider:
Level of Care: Inpatient admission
Assign to:: Telemetry
Physician / Group: Hospitalist
Diagnosis: GI Bleeding
Reason for Telemetry: Medication for Arrhythmia
Date to Stop Telemetry: 08/23/24
Time to Stop Telemetry: 11:00
Reason for Hospitalization: .
Expected length of stay greater than two midnights?: Yes
ELOS- Estimated Length of Stay in days: 3
I certify the patient meets the requirements for IP care: Yes
08/21/24 17:22
PRN Pain Medication Management As Directed
May give lesser potent ordered pain med per pt: Yes
preference::
Protocol:: Medication orders for pain may be administered in a
manner that supports deferring to patient preference
when the pt is:
- Requesting an ordered lesser potent pain medication.
Least to most potent pain medications are defined
as: acetaminophen < NSAID < tramadol < opioids
(morphine, oxycodone, hydromorphone).
- Requesting a lesser dose of the same medication IF
ORDERED.
- Requesting a less intrusive route of administration
if both routes are prescribed by the provider (PO <
IV).
08/21/24 17:23
Code Status As Directed
Resuscitation Status: Full Code
08/23/24 11:00
DC Protocol for Telemetry ONCE
Abnormal Lab Results
08/21/24
11:35
RBC 3.56 L 10^6/uL
(4.70-6.10)
Hgb 11.2 L g/dL
(13.0-18.0)
Hct 33.7 L %
(39.0-52.0)
MCV 94.7 H fL
(80.0-94.0)
MCH 31.5 H pg
(27.0-31.0)
RDW 15.6 H %
(11.5-14.5)
Absolute Monos (auto) 0.8 H 10^3/uL
(0.1-0.6)
Immature Gran % 0.6 H %
(0-0.5)
Monocytes % 14.7 H %
(1.7-9.3)
Alkaline Phosphatase 36 L U/L
(38-126)
08/21/24 11:35
08/21/24 11:35
Vital Signs
Initial and Last Documented VS:
Initial Vital Signs
Temp Pulse Resp BP Pulse Ox
98.3 F 75 18 136/78 98
08/21/24 11:28 08/21/24 11:28 08/21/24 11:28 08/21/24 11:28 08/21/24 11:28
Last Documented Vital Signs
Temp Pulse Resp BP Pulse Ox
98.3 F 75 21 115/93 93
08/21/24 11:28 08/21/24 18:26 08/21/24 18:34 08/21/24 18:33 08/21/24 18:34
<Luh Ch PA-C - Last Filed: 08/21/24 18:38>
*Critical Care Note
Total Time (30-74mins, 75-104mins- exclusive of procedures): Not Applicable
<Luh Ch PA-C - Last Filed: 08/21/24 18:38>
Update Note
Update Note:
79-year-old male with past medical history of extensive diverticular disease with previous GI bleeding the past requiring blood transfusions presents to the emergency department for evaluation of rectal bleeding associated with some mild abdominal
pain. On arrival, patient's vital signs are stable, he is afebrile. On exam, patient is well-appearing, he is in no acute distress, he has mild left upper quadrant and left lower quadrant tenderness without rebound or guarding, rectal exam does
demonstrate scant amount of bright red blood which is heme positive. Labs were performed while the patient was in the waiting room and demonstrate a hemoglobin of 11.2. However, patient had lab work performed 10 days ago which demonstrated a
hemoglobin of 13.2 therefore the patient has dropped 2 points in 10 days. Given the patient's left-sided abdominal discomfort and his history of diverticular disease, will check CT of the abdomen pelvis to evaluate for possible diverticulitis today.
CT demonstrates no acute pathology to account for the patient's symptoms today. Patient has remained stable for the entirety of his emergency department stay, has not had any bowel movements. Case discussed with Dr. Butts of gastroenterology per the
patient's request who was made aware of the patient and will see the patient in consultation. Will admit the patient for trending of H&H and GI consult given his duration of symptoms, history of significant GI bleeding requiring blood transfusion
in the past, and his considerable drop in hemoglobin over the past 10 days. Plan was discussed with the patient who expressed understanding and agreed.
ED Attending Note
<Ramy Newsome PA-C - Last Filed: 08/21/24 11:32>
-
Portions of this chart may have been created with voice recognition software.� Occasional wrong word or��sound alike� substitutions may have occurred due to the inherent limitations of voice recognition software.
Discharge Plan
Departure
Patient Disposition: Admit
Date of Disposition: 08/21/24
Time of Disposition: 17:15
Presentation/result/management discussed w/ accepting MD/DO: Hospitalist
Patient with high blood pressure during this ER visit?: No
Condition: Good
Covid-19: Not Applicable
Discharge Problem:
Acute GI bleeding
Interventions
Interventions:
*Risk Screen - Suicide Last Done: 08/21/24 11:28
*General Assessment Last Done: 08/21/24 11:28
*Neglect/Abuse Screening Last Done: 08/21/24 11:28
*ED COVID-19 Vaccine History Last Done: 08/21/24 11:28
[facility] Assessment Last Done: 08/21/24 14:34
ED- Cardiac Assessment Last Done: 08/21/24 14:34
ED- Pulmonary Assessment Last Done: 08/21/24 14:34
[2024-08-21 11:52] LABS: % Basophils 0.4 % (0-2); % Eosinophils 0.4 % (0-6); % Immature Granulocytes 0.6 % (0-0.5); % Lymphocytes 23.9 % (20.5-51.1); % Monocytes 14.7 % (1.7-9.3); Absolute Lymphocytes 1.3 10^3/uL (1.2-3.4); Absolute Monocytes 0.8 10^3/uL (0.1-0.6); Absolute Neutrophils 3.2 10^3/uL (1.4-6.5); Hematocrit 33.7 % (39.0-52.0); Hemoglobin 11.2 g/dL (13.0-18.0); Mean Corp Hgb Conc. 33.2 g/dL (33.0-37.0); Mean Corpuscular Hgb 31.5 pg (27.0-31.0); Mean Corpuscular Volume 94.7 fL (80.0-94.0); Mean Platelet Volume 10.1 fL (7.4-10.4); Nucleated Red Blood Cells % 0 % (-); Platelet Count 187 10^3/uL (130-400); Red Blood Cell Count 3.56 10^6/uL (4.70-6.10); Red Cell Dist. Width 15.6 % (11.5-14.5); White Blood Cell Count 5.4 10^3/uL (4.8-10.8)
[2024-08-21 12:07] LABS: ALT (SGPT) 25 U/L (0-50); AST (SGOT) 28 U/L (17-59); Albumin 4.2 g/dl (3.5-5.0); Alkaline Phosphatase 36 U/L (38-126); Blood Urea Nitrogen 19 mg/dl (9-20); Calcium 9.2 mg/dl (8.4-10.2); Carbon Dioxide 25 mmol/L (22-30); Chloride 102 mmol/L (98-107); Glucose 97 mg/dl (70-99); Potassium 4.7 mmol/L (3.5-5.1); Sodium 141 mmol/L (135-145); Total Bilirubin 0.2 mg/dl (0.2-1.3); Total Protein 6.6 g/dl (6.3-8.2); eGFR > 60.00
--- NOTE | 2024-08-21 17:21 | HPS.HSE ---
Family Physician
-
Family Physician: Isaiah Boyce
Chief Complaint
-
Melena for 4 days duration
History of Present Illness
79 years old male presented with melena in last 4 days. Patient had 2-3 bowel movements a day. Black stools but sometimes streaks of blood noted. No abdominal pain. No nausea or vomiting. Patient has history of diverticulosis. Hemoglobin on
arrival to the ER around 11.2. His hemoglobin was 13.[address] of [address] of the abdomen and pelvis with contrast showed no definitive acute pathology with mild diverticulosis noted. Primary debate director Dr. Olmstead.
Medical History
Past Medical History
Past Medical History: Reports Other (Diverticulosis, history of GI bleeding, hypertension, history of bladder tumor, BPH, gout, depression.)
Past Surgical History: Reports Other (No recent major surgery)
Social History
Tobacco: Former Smoker
Alcohol: None
Drug: None
Personal:
Living: With Family
Employment: Retired
Family History
Family History: Other ( History of CVA, history of diverticulosis)
Allergies / Home Medications
Allergies reflects when Allergies were last updated in [facility].
Home Medications with original date entered in [facility]
Allergy/Medication List:
Allergies
Allergy/AdvReac Type Severity Reaction Status Date / Time
levofloxacin [From Levaquin] Allergy Nausea / Verified 08/21/24 11:30
Vomiting,
headache
tramadol Allergy Nausea / Verified 08/21/24 11:30
Vomiting,
headache
Home Medications
fluoxetine 20 mg capsule 20 mg PO DAILY Mental Health/Anxiety 02/23/18
vitamin B complex 1 tab PO DAILY Supplement 02/23/18
allopurinol 300 mg tablet 300 mg PO DAILY Gout 09/13/18
omeprazole 20 mg capsule,delayed release 20 mg PO DAILY Gastrointestinal issue 09/13/18
lisinopril 20 mg tablet 20 mg PO DAILY 03/23/24
rosuvastatin 5 mg tablet 5 mg PO MOWEFR 03/23/24
Lactobac no.2-Bifidobac no.1-S. thermo 112.5 billion cell capsule (Visbiome) 1 cap PO DAILY 08/21/24
acetylcysteine 600 mg capsule (NAC) 1,200 mg PO DAILY 08/21/24
calcium carbonate (Tums) 300 mg PO HSPRN PRN stomach issues 08/21/24
hydrocodone 5 mg-acetaminophen 325 mg tablet 1 tab PO Q8HPRN PRN severe pain 08/21/24
loperamide 2 mg capsule 2 mg PO BID 08/21/24
milk thistle 150 mg capsule 150 mg PO DAILY 08/21/24
simethicone 125 mg tablet 125 mg PO BID 08/21/24
therapeutic multivitamin 1 tab PO DAILY 08/21/24
Review of Systems
-
History Source: Patient
A 12 point ROS was completed and negative except as noted: Yes
Constitutional: Denies Fever or Chills
EENT: Denies Sore Throat
Respiratory: Denies Cough
Cardiac: Denies Chest Pain
Abdomen/GI: Reports Black Stools; Denies Abdominal Pain, Nausea or Vomiting
: Denies Dysuria or Difficulty Voiding
Musculoskeletal: Denies Joint Pain or Joint Swelling
Skin: Denies Rash
Neurological: Denies Numbness
Endocrine: Denies Temp Intolerance
Hematologic/Lymphatic: Denies Bruising
Psych: Denies Panic Disorder
Physical Exam
Vital Signs
Vital Signs
Temp Pulse Resp BP Pulse Ox
98.3 F 64 18 117/72 94
08/21/24 11:28 08/21/24 16:45 08/21/24 11:28 08/21/24 16:43 08/21/24 16:45
Physical Exam
General: No Apparent Distress and Comfortable
HEENT: Moist mucous membranes and Atraumatic
Respiratory: Clear
Cardiac: S1/S2 and Regular Rhythm
GI: Soft, Non Tender and Non Distended
Genito-urinary: No costovertebral tender
Musculoskeletal: No Clubbing, No Cyanosis and No Edema
Skin: Warm and Dry; No Jaundice
Neuro: AO x 3 and Nonfocal/grossly intact; No Slurred Speech, Facial Droop or Tremors
Psych: Calm and Intact Judgment/Insight
Laboratory Results
-
08/21/24 11:35
08/21/24 11:35
Laboratory Results
Total Bilirubin 0.2 mg/dl (0.2-1.3) 08/21/24 11:35
AST 28 U/L (17-59) 08/21/24 11:35
ALT 25 U/L (0-50) 08/21/24 11:35
Alkaline Phosphatase 36 U/L (38-126) L 08/21/24 11:35
Impression/Plan
-
79 years old male presented with 4 days history of black stools, no abdominal pain. Hemoglobin on arrival 11.2. Hemoglobin earlier in the month was around 13.
# Acute blood loss anemia
Differential diagnosis include diverticular bleed versus others
History of hemorrhoid but no rectal pain
#HX lower GI bleed
Last colonoscopy in March 2024 that showed diverticulosis with internal/external hemorrhoids
Not on antiplatelet therapy or anticoagulation.
Hgb 11.2 on admission
Continue with clear liquids for now
No abdominal pain, no nausea or vomiting.
Consult gastroenterology.
#HTN-benign
Blood pressure on arrival 136/78
Continue home medication. Avoid hypotension
#GERD
Continue Protonix
#HLD
- Crestor 5 mg Wednesday
#Depression
Mood is a pleasant-
-Continue fluoxetine 20 mg daily
#Gout
-Continue allopurinol 300 mg daily
# Hx borderline DM 2
#Insomnia
#Hx bladder tumor with removal 12/20/2014
#History elevated PSA/prostate cancer with prostatectomy 2020
Total time spent to see the patient on the floor, examine the patient, review data and lab results, discuss treatment plan with patient, ER doctor, nursing staff around 75 minutes
--- NOTE | 2024-08-21 21:30 | TRANSFER ---
pt arrived from ED via stretcher accompanied by ED staff. pt walked from stretcher to bed. AAOx3. VSS. oriented to room. plan of care ongoing.
[2024-08-21] MEDS: IMODIUM 2 MG PO (23:05)
[2024-08-21] MEDS: MYLICON 80 MG PO (23:06)
[2024-08-21] MEDS: TUMS EX (EXTRA STRENGTH) CHEWABLE TABLET 300 MG PO (23:13)
[2024-08-22] VITALS (9 sets, daily range): BP systolic 12–143; BP diastolic 60–76
[2024-08-22 06:38] LABS: Hematocrit 29.8 % (39.0-52.0); Hemoglobin 10.1 g/dL (13.0-18.0); Mean Corp Hgb Conc. 33.9 g/dL (33.0-37.0); Mean Corpuscular Hgb 31.6 pg (27.0-31.0); Mean Corpuscular Volume 93.1 fL (80.0-94.0); Mean Platelet Volume 10.5 fL (7.4-10.4); Platelet Count 173 10^3/uL (130-400); Red Cell Dist. Width 15.4 % (11.5-14.5); White Blood Cell Count 4.9 10^3/uL (4.8-10.8)
[2024-08-22 07:09] LABS: Blood Urea Nitrogen 19 mg/dl (9-20); Calcium 8.9 mg/dl (8.4-10.2); Carbon Dioxide 29 mmol/L (22-30); Chloride 103 mmol/L (98-107); Estimated Creatinine Clearance 67 ml/min; Glucose 103 mg/dl (70-99); Potassium 4.8 mmol/L (3.5-5.1); Sodium 142 mmol/L (135-145); eGFR > 60.00
--- NOTE | 2024-08-22 08:41 | CON.GI ---
Addendum entered and electronically signed by Val Martinez Do, MD 08/22/24 12:29:
I saw and examined the patient.
The PLANT OPERATIONS ENGINEER's note was reviewed and I agree with the note.
Comment: Mr Houston is a 79yo M with HTN and remote prostate cancer s/p prostatectomy with h/o GIB in past thought to be diverticular. He's now presenting again with black red stools. He FU with Dr Olmstead and has had extensive GI workup including
EGD June 2024, colonoscopy in 03/2024 at . He is not on AC or chronic NSAIDs. Vitals stable exam with bent fingers with arthritis changes. Labs reviewed Hbg 10 down from 12 in April 2024
Impression
- Dark/maroon stools with anemia
Suspect small bowel source as recent EGD/colon in March 2024 without cause found
ddx includes AVMs, ulcer or polyp
- Chronic diarrhea with pelvic floor dysfunction
- Chronic opioid use
- Chronic low back pain
- HTN
- IPMN
MRI in 05/2024 showed stability suggests no further imaging needed
- Pelvic floor PT
- Remote bladder and prosate cancer
- DM
- Depression
Recommendations
- Stool observed and frankly bloody
- Recommend enteroscopy today, NPO
- If above not diagnostic and continues to have bloody stools consider video capsule
- Protonix IV BID
- Follow serial H/H. Add on iron panel
Will follow with you
Addendum entered and electronically signed by ANTONIO Rodriguez 08/22/24 11:55:
pt just passed black formed stool with small amount red around stools Will plan for EGD/enteroscopy today
Original Note:
Consultation
-
Date/Time Consultation Requested: 08/21/242099
Date/Time Consultation Performed: 08/22/24 0845
Requesting Provider: Bibi Puckett MD
Performing Provider: ANTONIO Robles, Val Butts MD
Reason for Consultation: GI bleed
Medical History
Chief Complaint / HPI
Chief Complaint: Rectal bleeding
History of Present Illness:
Pt is a 79-year-old male with a past medical history of hypertension, hx bladder cancer, Hx IPMN,GERD, squamous cell CA,gastric ulcers, Upper endoscopy in 2014 showed antral biopsy with features mild neuroendocrine cell hyperplasia, subsequent
upper endoscopy with biopsy and EUS did not show this, depression, diabetes, hx prostate ca s/p prostatectomy, history of diverticular bleeding with admission in May. He follows with Dr. Olmstead in OP office. He has since had GI follow up with
stable repeat EGD, MRI with stable cyst and rectal manometry with recommended pelvic floor PT. He now presents with rectal bleeding note black/dark red stools. He is passing about 3 stools a day for several days with mild dizziness. In ER noted
with scant red blood in exam with hbg 11.2 with baseline 10-12. CT A/p with IV no acute pathology and stable bladder wall thickening. No NSAID use.
Pt admits to some chronic diarrhea with pudding like stools. He current takes Imodium/simethicone and is in the 4th week of Pelvic floor PT. He has chronic GERD on PPI. He denies dysphagia, nausea, vomiting, abdominal pain, constipation or
red stools.
recent testing:
08/21/24 CT A/p with IV contrast No definitive acute pathology identified.Mild diffuse bladder wall thickening. This can be seen with cystitis or bladder outlet obstruction. Stable.Pancreatic fatty infiltration. Progressed Mild diverticulosis.
StableMild fecal material in the colon. Stable. Bilateral too small to characterize hypodense renal lesions likely benign cysts. Stable Grade 1 anterolisthesis of L5 on S1. Stable.
06/22/24 EGD jo ann - No gross lesions in the entire esophagus. - Z-line regular, 40 cm from the incisors.- Small hiatal hernia. - No gross lesions in the entire stomach - Two duodenal polyps. Biopsy - Duodenal scar. Biopsied. bx gilberto gland
hyperplasisa, non specific finding, no lymphocytosis or active duodenitis repeat 3 years
05/2024-MRI abdomen 3 small panc cystic lesion stable back to 2015, no further imaging needed likely benign side branch IPMN, moderate atrophy and fatty pancreas no mass, fatty liver
05/2024 anal manometry-failed balloon expulsion, consider pelvis floor PT small rectal prolapse consider CR eval
--03/2024 colonoscopy, Dr. Victor:� Inpatient colonoscopy for rectal bleeding. Good prep to the terminal ileum. No blood throughout the colon. Absent prostate, small hemorrhoids, pandiverticulosis, 3 adenomas removed from the transverse and ascending
colon. No repeat colonoscopy due to lack of advanced polyps and age.
Past Medical History
Past Medical History: Cancer (squamous cell -thigh ), GERD, HTN, NIDDM, Psychiatric (depression) and Other (Hx bladder cancer, hx prostate cancer, gastric ulcers,diverticular bleeding, IPMN, gout )
Past Surgical History: Urological
Social History
Tobacco: Former Smoker
Alcohol: Occasional (with prior heavy use several years ago)
Drug: None
Personal:
Living: With Family
Employment: Retired
Family History
Family History: Other (no family hx colon Ca or polyps)
Allergies / Home Medications
Allergy/AdvReac Type Severity Reaction Status Date / Time
levofloxacin [From Levaquin] Allergy Nausea / Verified 08/21/24 11:30
Vomiting,
headache
tramadol Allergy Nausea / Verified 08/21/24 11:30
Vomiting,
headache
�Medication �Instructions �Recorded
fluoxetine 20 mg capsule 20 mg PO DAILY Mental 02/23/18
Health/Anxiety
vitamin B complex 1 tab PO DAILY Supplement 02/23/18
allopurinol 300 mg tablet 300 mg PO DAILY Gout 09/13/18
omeprazole 20 mg capsule,delayed 20 mg PO DAILY Gastrointestinal 09/13/18
release issue
lisinopril 20 mg tablet 20 mg PO DAILY Blood Pressure 03/23/24
rosuvastatin 5 mg tablet 5 mg PO MOWEFR High Cholesterol 03/23/24
Lactobac no.2-Bifidobac no.1-S. 1 cap PO DAILY Supplement 08/21/24
thermo 112.5 billion cell capsule
(Visbiome)
acetylcysteine 600 mg capsule (NAC) 1,200 mg PO DAILY RESP 08/21/24
calcium carbonate (Tums) 300 mg PO HSPRN PRN stomach issues 08/21/24
hydrocodone 5 mg-acetaminophen 325 1 tab PO Q8HPRN PRN severe pain 08/21/24
mg tablet
loperamide 2 mg capsule 2 mg PO BID DIARRHEA 08/21/24
milk thistle 150 mg capsule 150 mg PO DAILY Supplement 08/21/24
simethicone 125 mg tablet 125 mg PO BID Gastrointestinal 08/21/24
Issue
therapeutic multivitamin 1 tab PO DAILY Supplement 08/21/24
Review of Systems
-
History Source: Patient
Constitutional: Reports No Symptoms
EENT: Reports No Symptoms
Respiratory: Reports No Symptoms
Cardiac: Reports No Symptoms
Abdomen/GI: Reports Diarrhea, Bloody Stools and Black Stools
: Reports No Symptoms
Musculoskeletal: Reports No Symptoms
Skin: Reports No Symptoms
Neurological: Reports Dizzy
Endocrine: Reports No Symptoms
Hematologic/Lymphatic: Reports Bleeding
Vital Signs
Temp Pulse Resp BP Pulse Ox
98.3 F 76 16 143/76 96
08/22/24 07:50 08/22/24 07:50 08/22/24 07:50 08/22/24 07:50 08/22/24 07:50
Physical Exam
Exam
General: Well Developed and Well Nourished
HEENT: Normocephalic
Respiratory: Clear
Cardiac: Regular Rhythm
GI: Soft, Non Tender and Non Distended
Rectal: Other (minimal stool in rectal vault trace dark red heme +)
Musculoskeletal: No Clubbing and No Cyanosis
Skin: Warm and Dry
Neuro: Awake, Alert and AO x 3
Psych: Calm
Results
WBC 4.9 10^3/uL (4.8-10.8) 08/22/24 05:14
Hgb 10.1 g/dL (13.0-18.0) L 08/22/24 05:14
Hct 29.8 % (39.0-52.0) L 08/22/24 05:14
MCV 93.1 fL (80.0-94.0) 08/22/24 05:14
Plt Count 173 10^3/uL (130-400) 08/22/24 05:14
Absolute Neuts (auto) 3.2 10^3/uL (1.4-6.5) 08/21/24 11:35
Sodium 142 mmol/L (135-145) 08/22/24 05:14
Potassium 4.8 mmol/L (3.5-5.1) 08/22/24 05:14
Chloride 103 mmol/L (98-107) 08/22/24 05:14
Carbon Dioxide 29 mmol/L (22-30) 08/22/24 05:14
BUN 19 mg/dl (9-20) 08/22/24 05:14
Creatinine 0.9 mg/dL (0.7-1.3) 08/22/24 05:14
Calcium 8.9 mg/dl (8.4-10.2) 08/22/24 05:14
Total Bilirubin 0.2 mg/dl (0.2-1.3) 08/21/24 11:35
AST 28 U/L (17-59) 08/21/24 11:35
ALT 25 U/L (0-50) 08/21/24 11:35
Alkaline Phosphatase 36 U/L (38-126) L 08/21/24 11:35
Diagnostic Image Results:
08/21/24 CT A/p with IV contrast No definitive acute pathology identified.Mild diffuse bladder wall thickening. This can be seen with cystitis or bladder outlet obstruction. Stable.Pancreatic fatty infiltration. Progressed Mild diverticulosis.
StableMild fecal material in the colon. Stable. Bilateral too small to characterize hypodense renal lesions likely benign cysts. Stable Grade 1 anterolisthesis of L5 on S1. Stable.
06/22/24 EGD salguti - No gross lesions in the entire esophagus. - Z-line regular, 40 cm from the incisors.- Small hiatal hernia. - No gross lesions in the entire stomach - Two duodenal polyps. Biopsy - Duodenal scar. Biopsied. bx gilberto gland
hyperplasisa, non specific finding, no lymphocytosis or active duodenitis repeat 3 years
05/2024-MRI abdomen 3 small panc cystic lesion stable back to 2014, no further imaging needed likely benign side branch IPMN, moderate atrophy and fatty pancreas no mass, fatty liver
05/2024 anal manometry-failed balloon expulsion, consider pelvis floor PT small rectal prolapse consider CR eval
--03/2024 colonoscopy, Dr. Victor:� Inpatient colonoscopy for rectal bleeding. Good prep to the terminal ileum. No blood throughout the colon. Absent prostate, small hemorrhoids, pandiverticulosis, 3 adenomas removed from the transverse and ascending
colon. No repeat colonoscopy due to lack of advanced polyps and age.
--07/06/22 EGD: Abdominal bloating, duodenal biopsies without celiac disease, polyp in the second portion of the duodenum removed, tubular adenoma, antral biopsies without H. pylori. Repeat in 3 years.
--MRI abdomen with/without contrast, 02/2021
Stable small simple appearing pancreatic cysts measuring up to 0.6 cm, unchanged dating back to 06/16/2019. No suspicious features.
--Colonoscopy 02/03/2021: Diverticulosis t/o, mult polyps, hemorrhoids. Path revealed TA
--MRI abdomen with/without contrast, 06/16/2019: There is a small nonenhancing 6 mm cyst in the body-tail of the pancreas, unchanged. There are 2 tiny less than 2 mm in size cyst in the to of the pancreas. There is a 2 mm cyst in the head of the
pancreas. Impression per report, stable exam. Several small pancreatic cysts unchanged. No abnormal enhancement.
--Colonoscopy, February 2018: Preparation of the colon was fair, diverticulosis in the sigmoid colon, descending colon, transverse colon, and ascending colon.
--EGD January 2017: Widely patent Schatzki ring, Z line regular at 36 cm, small hiatal hernia, scar in the gastric antrum, erythematous antrum, normal duodenal bulb and second portion of the duodenum. Biopsies of the antrum showed mild chronic
gastritis.
--EUS, May 2016: No gastric masses or abnormal folds. There were no ulcers. No gross evidence of mucosal abnormalities of the gastric mucosa. 6 mm pancreatic body cyst with communication with a side branch. Most likely this is a side branch IPMN.
--Colonoscopy, November 2014: Examined ileum was normal, 5 mm polyp and 4 mm polyp resected, diverticulosis, nonbleeding external hemorrhoids; Biopsy showed mildly hyperplastic colonic mucosa and hyperplastic polyp.
--EGD, November 2014: Widely patent Schatzki ring, Z line regular at 40 cm, normal cardia, hiatal hernia, erythematous mucosa in the gastric fundus and gastric body, and the duodenal folds, a medium-sized size infiltrative mass on the greater
curvature of the gastric antrum, normal second part of the duodenum. 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
hyperplasia, antrum biopsy showed focal mild active and chronic follicular gastritis With features of reactive/chemical gastropathy and small epithelial nest in lamina propria most consistent with mild neuroendocrine cell hyperplasia(synaptophysin
positive, chromogranin positive, mucicarmine negative). Biopsy of mass along greater curvature of stomach showed mild to moderate chronic gastritis with polypoid features and prominent features of mucosa/reactive gastropathy. Biopsy of erythema of
the body and fundus showed mild chronic gastritis and vascular congestion.
--EUS, January 2015: Erythematous region of mucosa in the proximal antrum on the greater curvature aspect was normal on endosonographic evaluation. Incidental finding of a 6 mm x 4 mm pancreatic tail cyst with communication with a side branch. This is
an incidental sidebranch IPMN and versus mucinous cystic neoplasm until proven otherwise.
Assessment / Plan
-
Pt is a 79-year-old male with a past medical history of hypertension, hx bladder cancer, Hx IPMN,GERD, squamous cell CA,gastric ulcers, Upper endoscopy in 2014 showed antral biopsy with features mild neuroendocrine cell hyperplasia, subsequent
upper endoscopy with biopsy and EUS did not show this, depression, diabetes, hx prostate ca s/p prostatectomy, history of diverticular bleeding with admission in May. He follows with Dr. Olmstead in OP office. He has since had GI follow up with
stable repeat EGD, MRI with stable cyst and rectal manometry with recommended pelvic floor PT which pt is currently completing . Pt admits to some chronic diarrhea with pudding like stools. He current takes Imodium and simethicone. He now presents
with rectal bleeding note black/dark red stools. He is passing about 3 stools a day for several days with mild dizziness. In ER noted with scant red blood in exam with hbg 11.2 with baseline 10-12. CT A/p with IV no acute pathology and stable
bladder wall thickening. No NSAID use.
recent testing:
08/21/24 CT A/p with IV contrast No definitive acute pathology identified.Mild diffuse bladder wall thickening. This can be seen with cystitis or bladder outlet obstruction. Stable.Pancreatic fatty infiltration. Progressed Mild diverticulosis.
StableMild fecal material in the colon. Stable. Bilateral too small to characterize hypodense renal lesions likely benign cysts. Stable Grade 1 anterolisthesis of L5 on S1. Stable.
06/22/24 EGD jo ann - No gross lesions in the entire esophagus. - Z-line regular, 40 cm from the incisors.- Small hiatal hernia. - No gross lesions in the entire stomach - Two duodenal polyps. Biopsy - Duodenal scar. Biopsied. bx gilberto gland
hyperplasisa, non specific finding, no lymphocytosis or active duodenitis repeat 3 years
05/2024-MRI abdomen 3 small panc cystic lesion stable back to 2014, no further imaging needed likely benign side branch IPMN, moderate atrophy and fatty pancreas no mass, fatty liver
05/2024 anal manometry-failed balloon expulsion, consider pelvis floor PT small rectal prolapse consider CR eval
--03/2024 colonoscopy, Dr. Victor:� Inpatient colonoscopy for rectal bleeding. Good prep to the terminal ileum. No blood throughout the colon. Absent prostate, small hemorrhoids, pandiverticulosis, 3 adenomas removed from the transverse and ascending
colon. No repeat colonoscopy due to lack of advanced polyps and age.
-rectal bleeding with black/dark red stool on admission
- history of prior suspected diverticular bleeds, gastric ulcers
-chronic diarrhea with pudding like stools =
-Hx colon polyps
-Hx Duodenal polyp
-GERD on PPI daily
-small TA in EGD with Dr. Olmstead in 2021, OP f/u
-Hx Neuroendocrine cell hyperplasia on gastric biopsies 2015 not seen in EUS or follow up last 06/2024
-hx abnormal manometry -- current pelvic floor PT
-hx IPMN stable on recent MRI
other med problems:
-prostate CA- prostatectomy
-bladder CA
-squamous cell CA
-HTN
-depression-
-DM
PLAN:
etiology of bleeding related to upper with black color vs right colon or SB source as BUN remains normal
pt recently completed EGD/colon past few months
will review work up with Dr. Butts -- for repeat EGD vs colon vs observation-- may need to consider SB imaging
hbg 11.2 to 10 after admission
reviewed with nursing to track all stools
if increased bleeding consider CTA
pt currently completing OP pelvic floor Pt
he remains on chronic Imodium and simethicone
cont PPI daily
remains NPO pending testing
-
-
Thank you for consultation and allowing me to participate in the patient's care. Please call the dehydration unit operator GI physician during the after hours with any questions or concerns.
--- NOTE | 2024-08-22 09:46 | W.PN.HOSP.TC ---
Today's Communication/Plan
-
Ok to resume liquid diet
Transfuse blood as needed
Repeat H&H later today
Assessment / Plan
Assessment / Plan
Physical Exam
General: No Apparent Distress and Comfortable
HEENT: Moist mucous membranes and Atraumatic
Respiratory: Clear
Cardiac: S1/S2 and Regular Rhythm
GI: Soft, Non Tender and Non Distended
Genito-urinary: No costovertebral tender
Musculoskeletal: No Clubbing, No Cyanosis and No Edema
Skin: Warm and Dry; No Jaundice
Neuro: AO x 3 and Nonfocal/grossly intact; No Slurred Speech, Facial Droop or Tremors
Psych: Calm and Intact Judgment/Insight
79 years old male presented with 4 days history of black stools, no abdominal pain. Hemoglobin on arrival 11.2. Hemoglobin earlier in the month was around 13.
# Acute on chronic blood loss anemia
Differential diagnosis include diverticular bleed versus others
History of hemorrhoid but no rectal pain
#HX lower GI bleed
Last colonoscopy in March 2024 that showed diverticulosis with internal/external hemorrhoids
Not on antiplatelet therapy or anticoagulation.
Hgb 11.2 on admission
Continue with clear liquids for now, d/w Dr Butts, no plan for immediate procedure
HGB at 10 from 11 on admission, re-check H&H later today, Consent for RBCs transfusion as needed, HGB < 9 or active significant rectal bleeding.
No abdominal pain, no nausea or vomiting.
Appreciate gastroenterology help.
#HTN-benign
Blood pressure on arrival 136/78
Continue home medication. Avoid hypotension
#GERD
Continue Protonix
#HLD
- Crestor 5 mg Wednesday
#Depression
Mood is a pleasant-
-Continue fluoxetine 20 mg daily
#Gout
-Continue allopurinol 300 mg daily
#Insomnia
#Hx bladder tumor with removal 12/20/2014
#History elevated PSA/prostate cancer with prostatectomy 2020
Total time spent to see the patient on the floor, examine the patient, review data and lab results, discuss treatment plan with patient, GI doctor, nursing staff around 59 minutes
Anticipated Discharge: 24 - 48 hours
Subjective/Interval History
-
Date of Service: August 22, 2024
No abd pain or nausea
had black stool this morning
Objective Data
-
Labs:
Laboratory Results
08/22/24
05:14
WBC 4.9
Hgb 10.1 L
Hct 29.8 L
Plt Count 173
Sodium 142
Potassium 4.8
Chloride 103
Carbon Dioxide 29
BUN 19
Creatinine 0.9
Glucose 103 H
Calcium 8.9
Vital Signs:
Vital Signs
Temp Pulse Resp BP Pulse Ox
98.3 F 76 16 143/76 96
08/22/24 07:50 08/22/24 07:50 08/22/24 07:50 08/22/24 07:50 08/22/24 07:50
I&O
08/21/24 08/22/24 08/23/24
06:59 06:59 06:59
Output Total 650 / 650
Balance -650 / -650
[2024-08-22] MEDS: ZYLOPRIM 300 MG PO (10:02)
[2024-08-22] MEDS: PROZAC 20 MG PO (10:02)
[2024-08-22] MEDS: IMODIUM 2 MG PO ×2 (10:02→22:04)
[2024-08-22] MEDS: ZESTRIL 20 MG PO (10:03)
[2024-08-22] MEDS: PROTONIX 40 MG PO (10:03)
[2024-08-22] MEDS: MYLICON 80 MG PO ×2 (10:03→22:04)
[2024-08-22] MEDS: VISBIOME 1 CAP PO (10:03)
--- NOTE | 2024-08-22 15:03 | CM ---
CM met with pt and spouse
Pt and spouse reside in a [facility] with [facility]
They have a 1st floor set up
Pt is independent with his ADLs drives+
Denies use of DMEs
Denies financial insecurities
PCP- Isaiah Boyce ( retiring soon, trying to find new PCP currtrinityly)
Resident clinic info provided
Rx- [facility]
Discharge Disposition- home, no needs anticipated
[2024-08-22 20:25] LABS: Hematocrit 28.5 % (39.0-52.0); Hemoglobin 9.9 g/dL (13.0-18.0)
[2024-08-22] MEDS: TYLENOL 650 MG PO (22:22)
[2024-08-23 03:25] VITALS: BP 101/56
--- NOTE | 2024-08-23 04:20 | DOWNTIME ---
There was a [employer] Client Jitterbug Operator Downtime on 08/23/2024 from 0100 to 08/23/2024 at 0355. Downtime documentation of patient's care, including medication administrations, has been reconciled in the electronic record per guidelines. Refer to the
patient's paper chart under the miscellaneous tab to see printed paper medication records and downtime forms.
[2024-08-23 08:12] VITALS: BP 111/65
[2024-08-23 08:21] LABS: Hemoglobin 10.7 g/dL (13.0-18.0); Mean Corp Hgb Conc. 33.4 g/dL (33.0-37.0); Mean Corpuscular Hgb 32.4 pg (27.0-31.0); Mean Platelet Volume 10.3 fL (7.4-10.4); Platelet Count 189 10^3/uL (130-400); Red Cell Dist. Width 15.1 % (11.5-14.5); White Blood Cell Count 5.2 10^3/uL (4.8-10.8)
[2024-08-23] MEDS: VISBIOME 1 CAP PO (09:17)
[2024-08-23] MEDS: PROTONIX 40 MG PO (09:17)
[2024-08-23] MEDS: ZESTRIL 20 MG PO (09:17)
[2024-08-23] MEDS: MYLICON 80 MG PO (09:17)
[2024-08-23] MEDS: IMODIUM 2 MG PO (09:18)
[2024-08-23] MEDS: ZYLOPRIM 300 MG PO (09:18)
[2024-08-23] MEDS: PROZAC 20 MG PO (09:18)
[2024-08-23 09:45] LABS: Blood Urea Nitrogen 23 mg/dl (9-20); Carbon Dioxide 26 mmol/L (22-30); Chloride 104 mmol/L (98-107); Estimated Creatinine Clearance 46 ml/min; Glucose 116 mg/dl (70-99); Potassium 4.5 mmol/L (3.5-5.1); Sodium 141 mmol/L (135-145); eGFR 56.58
--- NOTE | 2024-08-23 10:04 | W.PN.HOSP.TC ---
Today's Communication/Plan
-
discharge
Assessment / Plan
Assessment / Plan
Physical Exam
General: No Apparent Distress and Comfortable
HEENT: Moist mucous membranes and Atraumatic
Respiratory: Clear
Cardiac: S1/S2 and Regular Rhythm
GI: Soft, Non Tender and Non Distended
Genito-urinary: No costovertebral tender
Musculoskeletal: No Clubbing, No Cyanosis and No Edema
Skin: Warm and Dry; No Jaundice
Neuro: AO x 3 and Nonfocal/grossly intact; No Slurred Speech, Facial Droop or Tremors
Psych: Calm and Intact Judgment/Insight
79 years old male presented with 4 days history of black stools, no abdominal pain. Hemoglobin on arrival 11.2. Hemoglobin earlier in the month was around 13.
# Acute on chronic blood loss anemia
Differential diagnosis include diverticular bleed versus others
History of hemorrhoid but no rectal pain
s/p Small bowel enteroscopy that did not a show source of bleeding. GI ok to c/w diet
#HX lower GI bleed
Last colonoscopy in March 2024 that showed diverticulosis with internal/external hemorrhoids
Not on antiplatelet therapy or anticoagulation.
Hgb 11.2 on admission, went down to 9.9 but up to 10.7
No abdominal pain, no nausea or vomiting.
Appreciate gastroenterology help.
#HTN-benign
Blood pressure on arrival 136/78
Continue home medication. Avoid hypotension
#GERD
Continue Protonix
#HLD
- Crestor 5 mg Wednesday
#Depression
Mood is a pleasant-
-Continue fluoxetine 20 mg daily
#Gout
-Continue allopurinol 300 mg daily
#Insomnia
#Hx bladder tumor with removal 12/20/2014
#History elevated PSA/prostate cancer with prostatectomy 2020
Total discharge time spent to see the patient on the floor, examine the patient, review data and lab results, discuss discharge plan with patient, GI doctor, nursing staff around 65 minutes
Anticipated Discharge: Today
Subjective/Interval History
-
Date of Service: August 23, 2024
No abd pain
No rectal bleeding
Had BM with dark brown more than black
Objective Data
-
Labs:
Laboratory Results
08/23/24
07:22
WBC 5.2
Hgb 10.7 L
Hct 32.0 L
Plt Count 189
Sodium 141
Potassium 4.5
Chloride 104
Carbon Dioxide 26
BUN 23 H
Creatinine 1.3
Glucose 116 H
Calcium 9.0
Vital Signs:
Vital Signs
Temp Pulse Resp BP Pulse Ox
97.6 F 71 18 111/65 97
08/23/24 08:12 08/23/24 08:12 08/23/24 08:12 08/23/24 08:12 08/23/24 08:12
I&O
08/22/24 08/23/24 08/24/24
06:59 06:59 06:59
Intake Total 1080 / 1080
Output Total 650 / 650
Balance 430 / 430
--- NOTE | 2024-08-23 11:06 | W.PN.GI.CBS2 ---
Today's Communication / Plan
-
Anusol HC supp [id number]
Recommend OP VCE
He has OP FU with Dr Olmstead.
Ok from GI perspective for hosp d/c today
Assessment / Plan
-
Pt is a 79-year-old male with a past medical history of hypertension, hx bladder cancer, Hx IPMN,GERD, squamous cell CA,gastric ulcers, Upper endoscopy in 2014 showed antral biopsy with features mild neuroendocrine cell hyperplasia, subsequent
upper endoscopy with biopsy and EUS did not show this, depression, diabetes, hx prostate ca s/p prostatectomy, history of diverticular bleeding with admission in May. He follows with Dr. Olmstead in OP office. He has since had GI follow up with
stable repeat EGD, MRI with stable cyst and rectal manometry with recommended pelvic floor PT which pt is currently completing . Pt admits to some chronic diarrhea with pudding like stools. He current takes Imodium and simethicone. He now presents
with rectal bleeding note black/dark red stools. He is passing about 3 stools a day for several days with mild dizziness. In ER noted with scant red blood in exam with hbg 11.2 with baseline 10-12. CT A/p with IV no acute pathology and stable
bladder wall thickening. No NSAID use.
recent testing:
08/21/24 CT A/p with IV contrast No definitive acute pathology identified.Mild diffuse bladder wall thickening. This can be seen with cystitis or bladder outlet obstruction. Stable.Pancreatic fatty infiltration. Progressed Mild diverticulosis.
StableMild fecal material in the colon. Stable. Bilateral too small to characterize hypodense renal lesions likely benign cysts. Stable Grade 1 anterolisthesis of L5 on S1. Stable.
06/22/24 EGD jo ann - No gross lesions in the entire esophagus. - Z-line regular, 40 cm from the incisors.- Small hiatal hernia. - No gross lesions in the entire stomach - Two duodenal polyps. Biopsy - Duodenal scar. Biopsied. bx qamar gland
hyperplasisa, non specific finding, no lymphocytosis or active duodenitis repeat 3 years
05/2024-MRI abdomen 3 small panc cystic lesion stable back to 2015, no further imaging needed likely benign side branch IPMN, moderate atrophy and fatty pancreas no mass, fatty liver
05/2024 anal manometry-failed balloon expulsion, consider pelvis floor PT small rectal prolapse consider CR eval
--03/2024 colonoscopy, Dr. Victor:� Inpatient colonoscopy for rectal bleeding. Good prep to the terminal ileum. No blood throughout the colon. Absent prostate, small hemorrhoids, pandiverticulosis, 3 adenomas removed from the transverse and ascending
colon. No repeat colonoscopy due to lack of advanced polyps and age.
Impression
-rectal bleeding with black/dark red stool on admission
-history of prior suspected diverticular bleeds, gastric ulcers
-chronic diarrhea with pudding like stools =
-Hx colon polyps
-Hx Duodenal polyp
-GERD on PPI daily
-small TA in EGD with Dr. Olmstead in 2021, OP f/u
-Hx Neuroendocrine cell hyperplasia on gastric biopsies 2014 not seen in EUS or follow up last 06/2024
-hx abnormal manometry -- current pelvic floor PT
-hx IPMN stable on recent MRI
-prostate CA- prostatectomy
-bladder CA
-squamous cell CA
-HTN
-depression-
-DM
PLAN:
- Enteroscopy done 08/22 that was not remarkable
- Hbg uptrending without any transfusion on this admission
- Tolerating diet and ok from GI perspective for hosp d/c today
- Recommend anusol HC QHS
- He would benefit from OP VCE. My office will reach out to schedule. He will FU with Dr Olmstead. Appt already made.
Will s/o please call for questions.
Subjective
Subjective
Date of Service: August 23, 2024
He passed a dark stool. No further blood. Tolerating diet and no abd pain nausea or vomiting
Objective
Data Reviewed
Laboratory Data:
Laboratory Results
08/23/24 07:22
08/23/24 07:22
Laboratory Results
Total Bilirubin 0.2 mg/dl (0.2-1.3) 08/21/24 11:35
AST 28 U/L (17-59) 08/21/24 11:35
ALT 25 U/L (0-50) 08/21/24 11:35
Alkaline Phosphatase 36 U/L (38-126) L 08/21/24 11:35
Vital Signs and I&O:
Vital Signs
Temp Pulse Resp BP Pulse Ox
97.6 F 71 18 111/65 97
08/23/24 08:12 08/23/24 08:12 08/23/24 08:12 08/23/24 08:12 08/23/24 08:12
I&O
08/22/24 08/23/24 08/24/24
06:59 06:59 06:59
Intake Total 1080 / 1080
Output Total 650 / 650
Balance 430 / 430
Physical Exam
Physical Exam
GEN: No acute distress, conversant, pleasant
HEENT: anicteric, extraocular movements intact, clear oropharynx without exudates
GI: soft, non-distended, not tender to palpation, normal active bowel sounds, no hepatosplenomegaly
EXT: warm, well perfused, trace edema bilaterally
NEURO: AAOx3, non-focal
--- NOTE | 2024-08-23 11:25 | CM ---
Patient is for discharge to home today no needs.
Plan; Home no needs.
[2024-08-23 11:29] VITALS: BP 119/73
--- NOTE | 2024-08-23 16:28 | W.DCSUMMARY ---
Discharge Summary
Discharge Data
Date of Admission: 08/21/24
Date of Discharge: 08/23/24
-
Pending Results: No
Hospital Course
79 years old male who presented with black/dark red stool. Patient had history of prior diverticular bleeding and history of gastric ulcers. He had history of chronic diarrhea, neuroendocrine cell hyperplasia on a gastric biopsy in 2014 but not
seen in endoscopic ultrasound or follow-up in June 2024. Admission hemoglobin was around 11.2. Patient had recent upper endoscopy in June 2024 with no gross lesions in the entire stomach. Colonoscopy in March 2024 with no source of bleeding but
positive for hemorrhoids (internal/external) and diverticulosis. No abdominal pain or nausea. Patient was evaluated by gastroenterology doctor. Scan with IV contrast of the abdomen and pelvis did not show definitive pathology or source of
bleeding. Patient underwent enteroscopy by Dr. Butts that was unremarkable. Hemoglobin started to up-trend with cessation of rectal bleeding. He tolerated diet well. 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 Olmstead in the
office. Patient remained hemodynamically stable. Hemoglobin upon discharge around 10.7. Patient was discharged in stable condition.
Discharge Plan
-
Patient Disposition: Home (Routine Discharge)
Discharge Diagnosis/Procedures: Melena and anemia
Follow with Dr. Olmstead in office for capsule study.
Diet: As tolerated
Referrals:
Leonora Olmstead MD [Active] - (as scheduled )
Isaiah Boyce MD [Family Provider] -
Prescriptions:
Continued
vitamin B complex 1 TAB tablet
1 tab PO DAILY
fluoxetine 20 MG capsule
20 mg PO DAILY
omeprazole 20 MG capsule,delayed release(/EC)
20 mg PO DAILY
allopurinol 300 MG tablet
300 mg PO DAILY
lisinopril 20 mg tablet
20 mg PO DAILY
rosuvastatin 5 mg tablet
5 mg PO MOWEFR
loperamide 2 mg Capsule
2 mg PO BID
hydrocodone-acetaminophen 5-325 mg Tablet
1 tab PO Q8HPRN PRN (Reason: severe pain)
Patient Comments:
08/21/24: last filled 05/25/24 for 21 tablets per PDMP
therapeutic multivitamin Tablet
1 tab PO DAILY
Tums 300 mg (750 mg) Tablet,Chewable
300 mg PO HSPRN PRN (Reason: stomach issues)
milk thistle 150 mg Capsule
150 mg PO DAILY
simethicone 125 mg Tablet
125 mg PO BID
Visbiome 112.5 billion cell Capsule
1 cap PO DAILY
acetylcysteine [NAC] 600 mg Capsule
1,200 mg PO DAILY
Discharge Orders:
Discharge Patient (As Directed); Ordered 08/23/24
Ordered By: Alan Puckett
Discharge Date and Time
Discharge Date/Time: 08/23/24 11:41
Print Language: PORTUGUESE
== END 2024-08-23 11:41 | disposition home or self-care (01) | DRG 378 ==
LOC: 4 EAST ACU 18:18
PROVIDERS: Physician Assistant; ADMITTING PHYSICIAN Internal Medicine; CONSULT PHYSICIAN Internal Medicine Gastroenterology; EMERGENCY PHYSICIAN Emergency Medicine; FAMILY PHYSICIAN Family Medicine
PROC: 0DJD8ZZ Inspection of Lower Intestinal Tract, Via Natural or Artificial Opening Endoscopic (ICD-10-PCS; 2024-08-22)
DX: K92.1 Melena (principal); D62 Acute posthemorrhagic anemia; Z87.891 Personal history of nicotine dependence; I10 Essential (primary) hypertension; F32.A Depression, unspecified; E11.9 Type 2 diabetes mellitus without complications; Z79.84 Long term (current) use of oral hypoglycemic drugs; K21.9 Gastro-esophageal reflux disease without esophagitis; E78.00 Pure hypercholesterolemia, unspecified; M10.9 Gout, unspecified
CPT/HCPCS: 74177; 80048; 80053; 85014; 85018; 85025; 85027; 86850; 86900; 86901; 99285; Q9967

== ENCOUNTER 2024-08-31 09:47 | Outpatient (RCR) | payer MEDICARE, OTHER, SELFPAY | END 2024-09-01 09:00 | disposition home or self-care (01) | LOC: RPT 09:47 | PROVIDERS: ATTENDING PHYSICIAN Internal Medicine Gastroenterology; FAMILY PHYSICIAN Family Medicine | DX: M62.89 Other specified disorders of muscle (principal); R15.9 Full incontinence of feces; R27.8 Other lack of coordination; Z73.6 Limitation of activities due to disability | CPT/HCPCS: 97014; 97112; 97530 ==

== ENCOUNTER → 2024-11-20 06:38 | Outpatient (REF) | payer MEDICARE, OTHER, SELFPAY ==
[2024-11-20 07:27] LABS: % Basophils 0.5 % (0-2); % Eosinophils 1.4 % (0-6); % Immature Granulocytes 0.4 % (0-0.5); % Lymphocytes 23.9 % (20.5-51.1); % Monocytes 9.9 % (1.7-9.3); % Neutrophils 63.9 % (42.2-75.2); Absolute Eosinophils 0.1 10^3/uL (0-0.7); Absolute Lymphocytes 1.4 10^3/uL (1.2-3.4); Absolute Monocytes 0.6 10^3/uL (0.1-0.6); Absolute Neutrophils 3.6 10^3/uL (1.4-6.5); Hematocrit 38.5 % (39.0-52.0); Hemoglobin 12.5 g/dL (13.0-18.0); Mean Corp Hgb Conc. 32.5 g/dL (33.0-37.0); Mean Corpuscular Hgb 28.9 pg (27.0-31.0); Mean Corpuscular Volume 88.9 fL (80.0-94.0); Mean Platelet Volume 10.4 fL (7.4-10.4); Nucleated Red Blood Cells % 0 % (-); Platelet Count 205 10^3/uL (130-400); Red Blood Cell Count 4.33 10^6/uL (4.70-6.10); Red Cell Dist. Width 17.2 % (11.5-14.5); White Blood Cell Count 5.7 10^3/uL (4.8-10.8)
[2024-11-20 08:19] LABS: Iron 70 ug/dl (49-181)
[2024-11-20 08:33] LABS: PSA, Total - Diagnostic 0.55 ng/ml (0.0-4.0)
[2024-11-20 08:37] LABS: Ferritin 12.6 ng/ml (17.9-464.0)
[2024-11-20 08:52] LABS: Vitamin B12 729 pg/ml (239-931)
== END ==
LOC: REG 06:38
PROVIDERS: ATTENDING PHYSICIAN Student in an Organized Health Care Education/Training Program; FAMILY PHYSICIAN Specialist
DX: C61 Malignant neoplasm of prostate (principal); D64.9 Anemia, unspecified; M10.9 Gout, unspecified
CPT/HCPCS: 36415; 82607; 82728; 83540; 84153; 85025

== ENCOUNTER → 2024-12-28 10:20 | Outpatient (REF) | payer MEDICARE, OTHER, SELFPAY ==
[2024-12-28 11:55] LABS: TSH 1.57 uIU/ml (0.47-4.68)
== END ==
LOC: REG 10:20
PROVIDERS: ATTENDING PHYSICIAN Psychiatry & Neurology Neurology; FAMILY PHYSICIAN Student in an Organized Health Care Education/Training Program
DX: G25.0 Essential tremor (principal)
CPT/HCPCS: 36415; 84443

== ENCOUNTER → 2025-02-10 10:16 | Outpatient (REF) | payer MEDICARE, OTHER, SELFPAY | LOC: RAD 10:16 | PROVIDERS: ATTENDING PHYSICIAN Physician Assistant Medical | DX: M25.471 Effusion, right ankle (principal); M79.671 Pain in right foot | CPT/HCPCS: 73610; 73630 ==

== ENCOUNTER → 2025-03-12 06:38 | Outpatient (REF) | payer MEDICARE, OTHER, SELFPAY | LOC: RAD 06:38 | PROVIDERS: ATTENDING PHYSICIAN Student in an Organized Health Care Education/Training Program | DX: M25.471 Effusion, right ankle (principal); R60.0 Localized edema | CPT/HCPCS: 93971 ==

== ENCOUNTER 2025-03-12 07:45 | Emergency (ER) | payer MEDICARE, OTHER, SELFPAY ==
[2025-03-12 07:48] VITALS: BP 151/78
[2025-03-12 09:16] VITALS: BMI 24.0
--- NOTE | 2025-03-12 09:28 | ED.GENMED ---
History of Present Illness
General
Chief Complaint: DVT/Possible Blood Clot
Source: patient and records
Time Seen by Provider: 03/12/25 09:10
History of Present Illness
History of Present Illness:
80-year-old male with past medical history of hypertension, hyperlipidemia, diverticulitis with previous diverticular bleed, bladder cancer and prostate cancer (currently not undergoing any therapies for this) presenting to the ER from outpatient
ultrasound where patient had testing done this morning and was found to have extensive DVT extending from the common femoral veins down to the distal veins within the right leg. He notes for the last month he has been dealing with edema, had been
started on prednisone with no relief and had x-ray imaging which did not show any abnormalities and then finally ultrasound ordered for further testing. He denies any chest pain, shortness of breath, exertional dyspnea, orthopnea, cough, pleurisy,
hemoptysis or any other concerns. Patient's risk factors for DVT include a former smoking history as well as previous cancer history. Denies any traumatic injuries, focal weakness or numbness, color changes.
Past History
Past History
ED Past Medical History: Cancer (prostate), HTN, Hypercholesterolemia, Other (Lower GI bleed) and Other (Gout, benign prostatic hypertrophy, borderline diabetes. depression, previous known hemorrhoids and polypectomy); Negative Arrthythmia
ED Past Surgical History: Orthopedic and Urological; Negative Cardiac
Social History
Tobacco: Former smoker
Alcohol: Daily
Drug: None
Personal:
Living: with family
Employment: Retired
Family History
Family History: Other (Noncontributory)
Review of Systems
Review of Systems
All Other Systems: ROS reviewed and negative except as documented in HPI and ROS
Phy Exam
Physical Exam
Physical Exam:
GENERAL: Alert , in no apparent distress
EYE: conjunctiva clear
NECK: Supple
ENT: o/p clr, mmm.
CARDIAC: Regular rate and rhythm
LUNGS: Clear breath sounds bilaterally, no acute respiratory distress, no wheezes/rales/rhonchi
NEUROLOGICAL: Alert and oriented
SKIN: Warm and dry, skin intact.
MUSCULOSKELETAL: well perfused. Mild edema to the right ankle right ankle: There is also mild edema to the gastrocnemius on the right compared to the left. Patient has easily palpable pedal and tibial pulses. Cap refill less than 2 seconds.
Sensation is grossly intact to light touch.
PSYCH: Normal and appropriate interaction.
Scores
Heart Failure Risk
Heart Failure Risk Score: Not Applicable
Heart Score for Chest Pain Patients
STEMI patient?: Not applicable
Withdrawal Assessment of Alcohol
Withdrawal Assessment Completed?: Not applicable
Course
Orders/Labs/Results
Orders:
Orders
03/12/25 09:30
Basic Metabolic Panel Urgent
Complete Blood Count/With Diff Urgent
PTT Urgent
Prothrombin Time Urgent
Abnormal Lab Results
03/12/25
09:30
RBC 3.90 L 10^6/uL
(4.70-6.10)
Hgb 12.8 L g/dL
(13.0-18.0)
Hct 38.5 L %
(39.0-52.0)
MCV 98.7 H fL
(80.0-94.0)
MCH 32.8 H pg
(27.0-31.0)
RDW 15.9 H %
(11.5-14.5)
Monocytes % 10.3 H %
(1.7-9.3)
PT 14.7 H Sec
(11.4-14.6)
Chloride 108 H mmol/L
(98-107)
Glucose 170 H mg/dl
(70-99)
03/12/25 09:30
03/12/25 09:30
Vital Signs
Initial and Last Documented VS:
Initial Vital Signs
Temp Pulse Resp BP Pulse Ox
98.6 F 61 16 151/78 98
03/12/25 07:48 03/12/25 07:48 03/12/25 07:48 03/12/25 07:48 03/12/25 07:48
Last Documented Vital Signs
Temp Pulse Resp BP Pulse Ox
98.6 F 61 16 151/78 98
03/12/25 07:48 03/12/25 07:48 03/12/25 07:48 03/12/25 07:48 03/12/25 07:48
MDM/Problems Addressed
Differential Diagnosis Includes:
Known DVT, risk factors including previous smoking history as well as previous cancer history but otherwise this appears to be a potentially a DVT. No symptoms to suggest PE, no findings to suggest arterial complication
MDM/Problems Addressed:
80-year-old male being sent to the emergency department for evaluation of DVT found on outpatient ultrasound. Ultrasound shows nonocclusive thrombus in the right common femoral vein, occlusive thrombus in the right femoral vein, nonocclusive
thrombus in the right popliteal, peroneal and posterior tibial veins. There is no DVT within the left common femoral vein. Patient is currently stable. Records were reviewed which shows a history of previous GI bleeding requiring 2 admissions in
2023. Will check labs. Will touch base with patient's primary care provider with anticipation patient can be discharged home on oral anticoagulants with close follow-up for further outpatient imaging in 2 to 4 weeks as well as potential for
further clotting workup.
*Pulse Oximetry
Patient hypoxic: no
*Critical Care Note
Total Time (30-74mins, 75-104mins- exclusive of procedures): Not Applicable
Data Reviewed
Review of Other/Old Records Reveals: Records, Radiology Studies and Discharge Summary
Patient Management
Discussion with other providers: PCP
Escalation/DeEscalation of care consider admission/obs:
Labs show a hemoglobin of 12.8 and normal renal function. Patient given a 1 month supply of Eliquis. I did notify patient's primary care provider to help with follow-up. Patient aware of return precautions to the ER as well as discussion of
potential side effects of being started on Eliquis. Stable for discharge.
ED Attending Note
-
Portions of this chart may have been created with voice recognition software.� Occasional wrong word or��sound alike� substitutions may have occurred due to the inherent limitations of voice recognition software.
Discharge Plan
Departure
Patient Disposition: Home (Routine Discharge)
Date of Disposition: 03/12/25
Time of Disposition: 09:53
Patient with high blood pressure during this ER visit?: Yes
Discharge Problem:
Acute deep vein thrombosis (DVT) of right lower extremity
Instructions: Deep Vein Thrombosis (Blood Clots in the Legs) (DC)
Prescriptions:
New
Eliquis 5 mg tablet
5 mg PO BID Qty: 70 0RF
Rx Instructions:
Take 2 tabs PO BID x 7 days. Take 1 tab PO BID for remaining 21 days
No Action
vitamin B complex 1 TAB tablet
1 tab PO DAILY
fluoxetine 20 MG capsule
20 mg PO DAILY
omeprazole 20 MG capsule,delayed release(DR/EC)
20 mg PO DAILY
allopurinol 300 MG tablet
300 mg PO DAILY
lisinopril 20 mg tablet
20 mg PO DAILY
rosuvastatin 5 mg tablet
5 mg PO MOWEFR
loperamide 2 mg Capsule
2 mg PO BID
hydrocodone-acetaminophen 5-325 mg Tablet
1 tab PO Q8HPRN PRN (Reason: severe pain)
Patient Comments:
08/21/24: last filled 05/25/24 for 21 tablets per PDMP
therapeutic multivitamin Tablet
1 tab PO DAILY
Tums 300 mg (750 mg) Tablet,Chewable
300 mg PO HSPRN PRN (Reason: stomach issues)
milk thistle 150 mg Capsule
150 mg PO DAILY
simethicone 125 mg Tablet
125 mg PO BID
Visbiome 112.5 billion cell Capsule
1 cap PO DAILY
acetylcysteine [NAC] 600 mg Capsule
1,200 mg PO DAILY
Referrals:
Reyes Martinez DO [Family Provider] -
Interventions
Interventions:
*Risk Screen - Suicide Last Done: 03/12/25 07:48
*General Assessment Last Done: 03/12/25 10:23
*Neglect/Abuse Screening Last Done: 03/12/25 07:48
*Nursing Disposition Last Done: 03/12/25 10:23
ED- Cardiac Assessment Last Done: 03/12/25 09:30
ED- Pulmonary Assessment Last Done: 03/12/25 09:30
ED-Peripheral Vascular Assessment Last Done: 03/12/25 09:30
ED-Skin Assessment Last Done: 03/12/25 09:30
Discharge Date and Time
Discharge Date/Time: 03/12/25 10:24
Print Language: BRUNEIAN
[2025-03-12 09:47] LABS: % Basophils 0.4 % (0-2); % Eosinophils 1.8 % (0-6); % Immature Granulocytes 0.4 % (0-0.5); % Lymphocytes 22.5 % (20.5-51.1); % Monocytes 10.3 % (1.7-9.3); % Neutrophils 64.6 % (42.2-75.2); Absolute Eosinophils 0.1 10^3/uL (0-0.7); Absolute Lymphocytes 1.3 10^3/uL (1.2-3.4); Absolute Monocytes 0.6 10^3/uL (0.1-0.6); Absolute Neutrophils 3.7 10^3/uL (1.4-6.5); Hematocrit 38.5 % (39.0-52.0); Hemoglobin 12.8 g/dL (13.0-18.0); Mean Corp Hgb Conc. 33.2 g/dL (33.0-37.0); Mean Corpuscular Hgb 32.8 pg (27.0-31.0); Mean Corpuscular Volume 98.7 fL (80.0-94.0); Mean Platelet Volume 10.3 fL (7.4-10.4); Nucleated Red Blood Cells % 0 % (-); Platelet Count 182 10^3/uL (130-400); Red Cell Dist. Width 15.9 % (11.5-14.5); White Blood Cell Count 5.6 10^3/uL (4.8-10.8)
[2025-03-12 09:48] LABS: Blood Urea Nitrogen 19 mg/dl (9-20); Calcium 9.1 mg/dl (8.4-10.2); Carbon Dioxide 26 mmol/L (22-30); Chloride 108 mmol/L (98-107); Estimated Creatinine Clearance 79 ml/min; Glucose 170 mg/dl (70-99); Potassium 4.5 mmol/L (3.5-5.1); Sodium 140 mmol/L (135-145); eGFR > 60.00
[2025-03-12 09:56] LABS: INR 1.12; PT 14.7 Sec (11.4-14.6)
[2025-03-12 09:57] LABS: APTT 27.4 Sec (23.4-35.0)
== END 2025-03-12 10:24 | disposition home or self-care (01) ==
LOC: EMR 07:45
PROVIDERS: Physician Assistant Medical; EMERGENCY PHYSICIAN Student in an Organized Health Care Education/Training Program; FAMILY PHYSICIAN Student in an Organized Health Care Education/Training Program
DX: I82.411 Acute embolism and thrombosis of right femoral vein (principal); I82.431 Acute embolism and thrombosis of right popliteal vein; I82.451 Acute embolism and thrombosis of right peroneal vein; I82.441 Acute embolism and thrombosis of right tibial vein; I10 Essential (primary) hypertension; E78.00 Pure hypercholesterolemia, unspecified; Z87.891 Personal history of nicotine dependence
CPT/HCPCS: 99283; 80048; 85025; 85610; 85730

== ENCOUNTER → 2025-04-03 09:32 | Outpatient (REF) | payer MEDICARE, OTHER, SELFPAY | LOC: RAD 09:32 | PROVIDERS: ATTENDING PHYSICIAN Student in an Organized Health Care Education/Training Program | DX: I82.401 Acute embolism and thrombosis of unspecified deep veins of right lower extremity (principal); Z85.46 Personal history of malignant neoplasm of prostate; Z87.19 Personal history of other diseases of the digestive system; R22.41 Localized swelling, mass and lump, right lower limb | CPT/HCPCS: 93971 ==

== ENCOUNTER 2025-04-12 11:33 | Inpatient (IN) | payer MEDICARE, OTHER, SELFPAY ==
[2025-04-10] VITALS (9 sets, daily range): BP systolic 106–132; BP diastolic 51–70; BMI 25.2; BMI 25.4
[2025-04-10] MEDS: MORPHINE SULFATE 4 MG IV (09:34)
[2025-04-10] MEDS: LIDOCAINE 4% PATCH 1 PATCH TOPICAL (09:34)
[2025-04-10] MEDS: TYLENOL 1000 MG PO (09:35)
--- NOTE | 2025-04-10 11:07 | ED.GENMED ---
History of Present Illness
General
Chief Complaint: Back Pain
Source: patient
Exam Limitations: none
Time Seen by Provider: 04/10/25 08:47
Nursing documentation reviewed up to this point in time: agreed with
History of Present Illness
History of Present Illness:
Patient is a 80-year-old male presents to the ER for low back pain. Patient slipped in his garden yesterday and fell on his back. He denies hitting his head. He is on blood thinners 3 of DVT. He denies headache but he does complain of low back
pain. He denies any radiation or loss of bowel or bladder
Past History
Past History
ED Past Medical History: Cancer (prostate), HTN, Hypercholesterolemia, Other (Lower GI bleed) and Other (Gout, benign prostatic hypertrophy, borderline diabetes. depression, previous known hemorrhoids and polypectomy); Negative Arrthythmia
ED Past Surgical History: Orthopedic and Urological; Negative Cardiac
Social History
Tobacco: Former smoker
Alcohol: Daily
Drug: None
Personal:
Living: with family
Employment: Retired
Family History
Family History: Other (Noncontributory)
Review of Systems
Review of Systems
Allergies reviewed?: Yes
All Other Systems: ROS reviewed and negative except as documented in HPI and ROS
Constitutional: Reports no symptoms
Respiratory: Reports no symptoms
Cardiac: Reports no symptoms
ABD/GI: Reports no symptoms; Denies nausea or vomiting
Musculoskeletal: Reports back pain
Skin: Reports no symptoms
Neurological: Reports no symptoms
Psychiatric: Reports no symptoms
Phy Exam
General Physical Exam
General Presentation: no apparent distress
General age: appears stated age
General Skin: warm and dry
General Habitus: elderly
General Mental: alert
Cardiovascular Exam
Cardiovascular Exam: regular rate/rhythm, no murmur and normal peripheral pulses
Pulmonary Exam
Pulmonary Exam: lungs clear and no respiratory distress
Neurological Exam
Neurological Exam: alert and oriented x3
Musculoskeletal Exam
Musculoskeletal Exam: other (Normal inspection to low back tenderness of the lumbar region no trauma to head or cervical spine)
Skin Exam
Skin Exam: normal color and warm/dry
Psychiatric Exam
Psychiatric Exam: normal mood/affect
Course
Orders/Labs/Results
Orders:
Orders
04/10/25 09:24
Acetaminophen [Tylenol] 1,000 mg PO NOW STA
Lidocaine [Lidocaine 4% Patch] 1 patch TOPICAL NOW STA
Apply Lidocaine patch(s) to:: lumbar back
Morphine Sulfate 4 mg IV NOW STA
04/10/25 09:27
CT Head W/o Iv Contrast Urgent
Comment:
Reason For Exam: trauma
CR Thoracic Spine 3 Views Urgent
Reason For Exam: trauma
Lumbar Spine Complete, 4 View [CR Lumbar Spine Comp Min 4 Vw*] Urgent
Comment:
Reason For Exam: trauma
04/10/25 11:07
HYDROmorphone [Dilaudid] 0.5 mg IV NOW STA
Ondansetron Injectable [Zofran] 4 mg IV NOW STA
04/10/25 11:09
HYDROmorphone [Dilaudid] 0.5 mg .ROUTE .STK-MED ONE
Ondansetron Injectable [Zofran] 4 mg .ROUTE .STK-MED ONE
04/10/25 12:51
Complete Blood Count/With Diff Urgent
Comprehensive Metabolic Panel Urgent
Abnormal Lab Results
04/10/25
12:51
RBC 3.92 L 10^6/uL
(4.70-6.10)
Hct 38.1 L %
(39.0-52.0)
MCV 97.2 H fL
(80.0-94.0)
MCH 33.2 H pg
(27.0-31.0)
RDW 14.6 H %
(11.5-14.5)
MPV 10.5 H fL
(7.4-10.4)
Absolute Lymphs (auto) 1.1 L 10^3/uL
(1.2-3.4)
Absolute Monos (auto) 1.0 H 10^3/uL
(0.1-0.6)
Lymphocytes % 13.8 L %
(20.5-51.1)
Monocytes % 12.0 H %
(1.7-9.3)
BUN 22 H mg/dl
(9-20)
Glucose 103 H mg/dl
(70-99)
04/10/25 12:51
04/10/25 12:51
Vital Signs
Initial and Last Documented VS:
Initial Vital Signs
Temp Pulse Resp BP Pulse Ox
98.1 F 64 18 132/70 94
04/10/25 08:38 04/10/25 08:38 04/10/25 08:38 04/10/25 08:38 04/10/25 08:38
Last Documented Vital Signs
Temp Pulse Resp BP Pulse Ox
98.1 F 64 18 111/51 95
04/10/25 08:38 04/10/25 08:38 04/10/25 08:38 04/10/25 12:00 04/10/25 12:30
MDM/Problems Addressed
Differential Diagnosis Includes:
Not limited to contusion, vertebral fracture
MDM/Problems Addressed:
80-year-old male on anticoagulation presents for mechanical fall. He slipped and fell in his garden last hitting his low back. He denies head injury however CAT scan was done to rule out intracranial hemorrhage due to patient being on Eliquis.
Patient has tenderness at the lumbar region there is a lumbar compression fracture. Patient has been requiring IV narcotics for discomfort. He has no neurological deficits will admit for pain control possible physical therapy. No acute lab
abnormalities
*Radiology
Radiology exam reviewed: radiology read reviewed
*Pulse Oximetry
Patient hypoxic: no
*Critical Care Note
Total Time (30-74mins, 75-104mins- exclusive of procedures): Not Applicable
ED Attending Note
-
Portions of this chart may have been created with voice recognition software.� Occasional wrong word or��sound alike� substitutions may have occurred due to the inherent limitations of voice recognition software.
Discharge Plan
Departure
Patient Disposition: Admit
Date of Disposition: 04/10/25
Time of Disposition: 13:38
Admit to: Med/Surg
Admit to doctor: hospitalist
Presentation/result/management discussed w/ accepting MD/DO: Hospitalist
Patient with high blood pressure during this ER visit?: No
Condition: Fair
Covid-19: Not Applicable
Discharge Problem:
vertebral compression fractures, Fall
Prescriptions:
No Action
vitamin B complex 1 TAB tablet
1 tab PO DAILY
fluoxetine 20 MG capsule
20 mg PO DAILY
omeprazole 20 MG capsule,delayed release(DR/EC)
20 mg PO DAILY
allopurinol 300 MG tablet
300 mg PO DAILY
lisinopril 20 mg tablet
20 mg PO DAILY
rosuvastatin 5 mg tablet
5 mg PO MOWEFR
loperamide 2 mg Capsule
2 mg PO BID
hydrocodone-acetaminophen 5-325 mg Tablet
1 tab PO Q8HPRN PRN (Reason: severe pain)
Patient Comments:
08/21/24: last filled 05/25/24 for 21 tablets per PDMP
therapeutic multivitamin Tablet
1 tab PO DAILY
Tums 300 mg (750 mg) Tablet,Chewable
300 mg PO HSPRN PRN (Reason: stomach issues)
milk thistle 150 mg Capsule
150 mg PO DAILY
simethicone 125 mg Tablet
125 mg PO BID
Visbiome 112.5 billion cell Capsule
1 cap PO DAILY
acetylcysteine [NAC] 600 mg Capsule
1,200 mg PO DAILY
Eliquis 5 mg tablet
5 mg PO BID Qty: 70 0RF
Rx Instructions:
Take 2 tabs PO BID x 7 days. Take 1 tab PO BID for remaining 21 days
Referrals:
Reyes Martinez DO [Family Provider, Family Practice]
Interventions
Interventions:
*Risk Screen - Suicide Last Done: 04/10/25 08:38
*General Assessment Last Done: 04/10/25 08:38
*Neglect/Abuse Screening Last Done: 04/10/25 08:38
*ED- Fall Risk Assessment Last Done: 04/10/25 08:38
*ED COVID-19 Vaccine History Last Done: 04/10/25 08:38
ED-Musculoskeletal Assessment Last Done: 04/10/25 08:38
Discharge Date and Time
Print Language: BRITISH
[2025-04-10] MEDS: ZOFRAN 4 MG IV (11:11)
[2025-04-10] MEDS: DILAUDID 0.5 MG IV (11:11)
[2025-04-10 13:03] LABS: % Basophils 0.3 % (0-2); % Eosinophils 0.6 % (0-6); % Immature Granulocytes 0.5 % (0-0.5); % Lymphocytes 13.8 % (20.5-51.1); % Neutrophils 72.8 % (42.2-75.2); Absolute Eosinophils 0.1 10^3/uL (0-0.7); Absolute Lymphocytes 1.1 10^3/uL (1.2-3.4); Absolute Neutrophils 5.8 10^3/uL (1.4-6.5); Hematocrit 38.1 % (39.0-52.0); Mean Corp Hgb Conc. 34.1 g/dL (33.0-37.0); Mean Corpuscular Hgb 33.2 pg (27.0-31.0); Mean Corpuscular Volume 97.2 fL (80.0-94.0); Mean Platelet Volume 10.5 fL (7.4-10.4); Nucleated Red Blood Cells % 0 % (-); Platelet Count 142 10^3/uL (130-400); Red Blood Cell Count 3.92 10^6/uL (4.70-6.10); Red Cell Dist. Width 14.6 % (11.5-14.5); White Blood Cell Count 7.9 10^3/uL (4.8-10.8)
[2025-04-10 13:24] LABS: ALT (SGPT) 21 U/L (0-50); AST (SGOT) 25 U/L (17-59); Albumin 4.1 g/dl (3.5-5.0); Alkaline Phosphatase 45 U/L (38-126); Blood Urea Nitrogen 22 mg/dl (9-20); Calcium 8.5 mg/dl (8.4-10.2); Carbon Dioxide 26 mmol/L (22-30); Chloride 107 mmol/L (98-107); Estimated Creatinine Clearance 79 ml/min; Glucose 103 mg/dl (70-99); Potassium 4.4 mmol/L (3.5-5.1); Sodium 139 mmol/L (135-145); Total Bilirubin 1.3 mg/dl (0.2-1.3); Total Protein 6.4 g/dl (6.3-8.2); eGFR > 60.00
--- NOTE | 2025-04-10 13:36 | HPS.HSE ---
Family Physician
-
Family Physician: Reyes Martinez, DO
Chief Complaint
-
back pain
History of Present Illness
Patient is a 80-year-old male with past medical history significant for hypertension, hyperlipidemia, BPH, gout, depression, diverticulosis and Hx DVT who presented to [facility] ED for evaluation of back pain. Patient reports he slipped in garden
yesterday and fell on his back landing on his buttocks. He denies any head strike. Patient states pain radiates slightly to bilateral hips, is sharp and constant. Denies any radiation down legs, no burning pain, no numbness, no loss of control of
bowels or bladder.
Medical History
Past Medical History
Past Medical History: Reports Other
Additional Past Medical History:
hypertension
hyperlipidemia
BPH
gout
depression
diverticulosis
Hx DVT
Hx GI bleeding
Hx bladder tumor
Hx of prostatic malignancy
Past Surgical History: Reports Other
Additional Past Surgical History:
TURBT 2014/2016
skin cancer excision
Radical prostatectomy 2020
Social History
Tobacco: Former Smoker
Alcohol: Daily (1-2 beers or glasses of wine )
Drug: None
Personal:
Living: With Family
Employment: Retired
Family History
Family History: Other ( History of CVA, history of diverticulosis)
Allergies / Home Medications
Allergies reflects when Allergies were last updated in [employer].
Home Medications with original date entered in [employer]
Allergy/Medication List:
Medications on admission are unable to be verified or confirmed at this time.
Review of Systems
-
History Source: Patient
Constitutional: Reports No Symptoms
EENT: Reports No Symptoms
Respiratory: Reports No Symptoms
Cardiac: Reports No Symptoms
Abdomen/GI: Reports No Symptoms
: Reports No Symptoms
Musculoskeletal: Reports Other (sharp lower back pain )
Skin: Reports No Symptoms
Neurological: Reports No Symptoms
Endocrine: Reports No Symptoms
Hematologic/Lymphatic: Reports No Symptoms
Psych: Reports No Symptoms
Physical Exam
Vital Signs
Vital Signs
Temp Pulse Resp BP Pulse Ox
98.1 F 64 18 111/51 95
04/10/25 08:38 04/10/25 08:38 04/10/25 08:38 04/10/25 12:00 04/10/25 12:30
Physical Exam
General: Well Developed, Well Nourished and No Apparent Distress
HEENT: NormoCephalic, Moist mucous membranes, Atraumatic, [place] Conjunctivae, Nose Appears Normal and Ears Appear Normal
Respiratory: Clear and Non Labored Respirations
Cardiac: S1/S2 and Regular Rhythm
Breast: Deferred by me
GI: Soft, Non Tender, Non Distended and Normal Bowel Sounds
Rectal: Deferred by Provider
Genito-urinary: Deferred by me
Musculoskeletal: No Clubbing, No Cyanosis, No Edema and Other (tenderness with palpation to lumbar spine)
Skin: IV/Catheter Site
Neuro: Awake, Alert, AO x 3 and Nonfocal/grossly intact
Psych: Calm and Intact Judgment/Insight
Laboratory Results
-
04/10/25 12:51
04/10/25 12:51
Laboratory Results
Total Bilirubin 1.3 mg/dl (0.2-1.3) 04/10/25 12:51
AST 25 U/L (17-59) 04/10/25 12:51
ALT 21 U/L (0-50) 04/10/25 12:51
Alkaline Phosphatase 45 U/L (38-126) 04/10/25 12:51
Data Reviewed
-
Diagnostic Radiology: Report Reviewed by me (Thoracic Spine: Stable thoracic spine compression fractures as described above. Bony demineralization. Scoliosis.; Lumbar spine: Mild L2 compression fracture. Age indeterminate. New from previous exam.
Grade 1 anterolisthesis of L5 on S1. Stable. Multilevel degenerative disc disease. New at all l)
CT Scan: Report Reviewed by me (Head: No evidence of acute intracranial abnormality.)
Lab Data: Labs Reviewed by me
Impression/Plan
-
IMPRESSION/PLAN:
#back pain 2/2 mechanical fall with L2 compression fracture
Head CT: No evidence of acute intracranial abnormality.
Lumbar x-ray: Mild L2 compression fracture. Age indeterminate. New from previous exam.
Grade 1 anterolisthesis of L5 on S1. Stable.
Multilevel degenerative disc disease. New at all levels.
Bony demineralization. New.
Thoracic x-ray: Stable thoracic spine compression fractures as described above.
Bony demineralization. Scoliosis.
- Admit to med/surg for observation
- Consult PT
- pain management
- supportive care
#hypertension
- continue home blood pressure control medication regimen
#hyperlipidemia
- continue home medications
- cholesterol lowering diet
#BPH
s/p prostatectomy
#gout
- continue allopurinol
#depression
- continue out patient medications
#Hx DVT
- continue Eliquis
#diverticulosis
Code status: DNR
DVT prophylaxis: Eliquis
--- NOTE | 2025-04-10 13:38 | W.PN.UPDATE ---
Update Note
Progress Note Update
Patient was independently examined and I agree with H&P written on the same day. In addition: 80yo M after mechanical fall, admitted with intractable back pain
mild L2 Fx indeterminate age
Stable thoracic spine compression Fx
-pain mgmt
We have spent at least 76min admitting patient
--- NOTE | 2025-04-10 15:40 | PTCARENOTE ---
Pt. admitted to 3W. Pt. pulled over to bed because he states it is too painful to walk. Pt. admission and assessment complete. PRN oxy given for pain. VSS. Plan of care ongoing.
[2025-04-10] MEDS: ROXICODONE 5 MG PO (16:14)
[2025-04-10] MEDS: MORPHINE SULFATE 2 MG IV (20:51)
[2025-04-10] MEDS: INDERAL 40 MG PO (20:53)
[2025-04-10] MEDS: ELIQUIS 5 MG PO (20:53)
[2025-04-10] MEDS: IMODIUM 2 MG PO (20:53)
[2025-04-11] MEDS: MORPHINE SULFATE 2 MG IV ×3 (02:12→12:05)
[2025-04-11 07:19] VITALS: BP 127/60
--- NOTE | 2025-04-11 07:23 | W.PN.HOSP.TC ---
Addendum entered and electronically signed by Petr Brandt MD 04/11/25 16:34:
Received [place] Text communication from Dr. Eric Fonseca confirming (as expected), that he does not do surgery on compression fractures. Patient can see Dr. Fonseca in the office. Usually interventional radiology can do a kyphoplasty, but it has to be
acute.
Addendum entered and electronically signed by Petr Brandt MD 04/11/25 16:25:
Avoid NSAIDs due to history of gastrointestinal bleeding
Original Note:
Today's Communication/Plan
-
Pain management
Physical Therapy
Sent a message to patient's spine surgeon Dr. Eric Fonseca, waiting to hear back
Assessment / Plan
Assessment / Plan
Physical Exam
General: Well Developed, Well Nourished and No Apparent Distress
HEENT: Normocephalic, Moist mucous membranes, Atraumatic
Respiratory: Clear to Auscultation Bilaterally
Cardiac: S1/S2 and Regular Rhythm
GI: Soft, Non Tender, Non Distended and Normal Bowel Sounds
Musculoskeletal: No Cyanosis, No Edema and Other (tenderness with palpation to lumbar spine)
Skin: Warm. Dry.
Neuro: Awake, Alert, AO x 3 and Nonfocal/grossly intact
Psych: Calm and Intact Judgment/Insight
Assessment/Plan
80-year-old male with past medical history significant for hypertension, hyperlipidemia, BPH, gout, depression, diverticulosis and Hx DVT who presented to [facility] ED for evaluation of back pain. Patient reports he slipped in garden yesterday and fell
on his back landing on his buttocks. He denies any head strike. Patient states pain radiates slightly to bilateral hips, is sharp and constant. Denies any radiation down legs, no burning pain, no numbness, no loss of control of bowels or bladder.
#back pain 2/2 mechanical fall with L2 compression fracture
Head CT: No evidence of acute intracranial abnormality.
Lumbar x-ray: Mild L2 compression fracture. Age indeterminate. New from previous exam.
Grade 1 anterolisthesis of L5 on S1. Stable.
Multilevel degenerative disc disease. New at all levels.
Bony demineralization. New.
Thoracic x-ray: Stable thoracic spine compression fractures as described above.
Bony demineralization. Scoliosis.
- Consult PT
- pain management: Lidocaine patch, high dose scheduled Tylenol, prn Oxycodone, prn Dilaudid
- Bowel regimen while on narcotic pain medications
- supportive care
#L5 spondylolisthesis
#Cervical Spine spondylolisthesis
-Reported by patient and his
-Per patient and his , he was being planned for surgery (with spine surgeon Dr. Eric oFnseca) of his L5 spondylolisthesis but patient and family were trying to decide whether to go forward with it
#History of Significant Side Effects from Vicodin (Hydrocodone/acetaminophen) and Percocet (Oxycodone/Paracetamol)
#hypertension
- continue home blood pressure control medication regimen
#hyperlipidemia
- continue home medications
- cholesterol lowering diet
#BPH
s/p prostatectomy
#gout
- continue allopurinol
#depression
- continue out patient medications
#Hx DVT
- continue Eliquis
#diverticulosis
Code status: DNR
DVT prophylaxis: Eliquis
Anticipated Discharge: 24 - 48 hours
Subjective/Interval History
-
Date of Service: April 11, 2025
Patient was seen and examined. He was in a lot of pain today from the fracture in his back.
Objective Data
-
Vital Signs:
Vital Signs
Temp Pulse Resp BP Pulse Ox
98.0 F 54 17 127/60 98
04/11/25 07:19 04/11/25 07:19 04/11/25 07:19 04/11/25 07:19 04/11/25 07:19
I&O
06/01/3004/11/25 04/12/25
06:59 06:59 06:59
Intake Total 360 / 360
Output Total 175 / 175
Balance 185 / 185
[2025-04-11] MEDS: THERAGRAN 1 TABLET PO (07:56)
[2025-04-11] MEDS: PROSCAR 5 MG PO (07:56)
[2025-04-11] MEDS: INDERAL 40 MG PO ×2 (07:56→20:30)
[2025-04-11] MEDS: IMODIUM 2 MG PO (07:56)
[2025-04-11] MEDS: LIDOCAINE 4% PATCH 1 PATCH TOPICAL (07:58)
[2025-04-11] MEDS: PROTONIX 40 MG PO (07:58)
[2025-04-11] MEDS: CRESTOR 5 MG PO (07:58)
[2025-04-11] MEDS: PROZAC 20 MG PO (07:58)
[2025-04-11] MEDS: ZESTRIL 20 MG PO (07:58)
[2025-04-11] MEDS: ELIQUIS 5 MG PO ×2 (07:58→20:29)
[2025-04-11] MEDS: ZYLOPRIM 300 MG PO (07:58)
--- NOTE | 2025-04-11 10:10 | CM ---
Addendum entered by Michaelle Yepez 04/11/25 16:15:
tt from Alejandra - patient is eligible for [facility] waiver
Addendum entered by Michaelle Yepez 04/11/25 14:32:
PT rec HH - Options reviewed - patient prefers [facility]
Notified [facility] liaison - referral to be added
Original Note:
Patient seen at bedside
OBS Status - form explained & signed. In chart
Dx: mechanical fall, L2 compression fx
PMH: hypertension, hyperlipidemia, BPH, gout, depression, diverticulosis, DVT
Patient lives with in a 2 story home with , 3 steps to enter, 1st floor set up bed/bath
PLOF: Independent no device
DME: Walker
PT to eval
Denies VN/rehab
Denies insecurities
PCP: Reyes Martinez
Pharmacy: [address], [place]
PLAN: TBD, PT eval, CM to follow hospital progress for needs
[2025-04-11] MEDS: TUMS EX (EXTRA STRENGTH) CHEWABLE TABLET 300 MG PO (11:19)
[2025-04-11] MEDS: TYLENOL 1000 MG PO ×2 (12:04→20:29)
[2025-04-11] MEDS: ZOFRAN 4 MG IV ×2 (12:57→19:26)
[2025-04-11 15:14] VITALS: BP 114/66
--- NOTE | 2025-04-11 15:46 | VNURNOTE ---
[facility] liaison attempted to meet with patient at bedside. He was sleeping and not disturbed. This author called patient's spouse Katarina. Attempted to explain VN services. She adamantly refuses VN stating that the pt 'cannot even stand, there's no
way he could go home' Attempted to explain PT's recs. Spouse stated she thinks the patient will need surgery and will need a rehab due to pain and immobility. SUNG Keller updated. No referral placed at this time.
[2025-04-11] MEDS: DILAUDID 0.25 MG IV ×2 (18:25→23:11)
[2025-04-11] MEDS: IMODIUM PO (20:33)
[2025-04-11 23:05] VITALS: BP 128/66
[2025-04-12] MEDS: TYLENOL PO (04:30)
[2025-04-12] MEDS: DILAUDID 0.25 MG IV ×4 (05:23→20:40)
[2025-04-12 07:05] VITALS: BP 136/69
[2025-04-12] MEDS: ZOFRAN 4 MG IV (07:27)
[2025-04-12] MEDS: ZESTRIL 20 MG PO (07:45)
[2025-04-12] MEDS: INDERAL 40 MG PO ×2 (07:45→20:39)
[2025-04-12] MEDS: PROSCAR 5 MG PO (07:45)
[2025-04-12] MEDS: ELIQUIS 5 MG PO ×2 (07:45→20:39)
[2025-04-12] MEDS: IMODIUM PO ×3 (07:45→20:46)
[2025-04-12] MEDS: ZYLOPRIM 300 MG PO (07:45)
[2025-04-12] MEDS: PROTONIX 40 MG PO (07:45)
[2025-04-12] MEDS: LIDOCAINE 4% PATCH 1 PATCH TOPICAL (07:46)
[2025-04-12] MEDS: PROZAC 20 MG PO (07:46)
[2025-04-12] MEDS: THERAGRAN 1 TABLET PO (07:46)
--- NOTE | 2025-04-12 08:05 | W.PN.HOSP.TC ---
Today's Communication/Plan
-
See plan
Assessment / Plan
Assessment / Plan
Physical Exam
General: Well Developed, Well Nourished and No Apparent Distress
HEENT: Normocephalic, Moist mucous membranes, Atraumatic
Respiratory: Clear to Auscultation Bilaterally
Cardiac: S1/S2 and Regular Rhythm
GI: Soft, Non Tender, Non Distended and Normal Bowel Sounds
Musculoskeletal: No Cyanosis, No Edema and Other (tenderness with palpation to lumbar spine)
Skin: Warm. Dry.
Neuro: Awake, Alert, AO x 3 and Nonfocal/grossly intact
Psych: Calm and Intact Judgment/Insight
Assessment/Plan
80-year-old male with past medical history significant for hypertension, hyperlipidemia, BPH, gout, depression, diverticulosis and Hx DVT who presented to [facility] ED for evaluation of back pain. Patient reports he slipped in garden yesterday and fell
on his back landing on his buttocks. He denies any head strike. Patient states pain radiates slightly to bilateral hips, is sharp and constant. Denies any radiation down legs, no burning pain, no numbness, no loss of control of bowels or bladder.
#back pain 2/2 mechanical fall with L2 compression fracture
Head CT: No evidence of acute intracranial abnormality.
Lumbar x-ray: Mild L2 compression fracture. Age indeterminate. New from previous exam.
Grade 1 anterolisthesis of L5 on S1. Stable.
Multilevel degenerative disc disease. New at all levels.
Bony demineralization. New.
Thoracic x-ray: Stable thoracic spine compression fractures as described above.
Bony demineralization. Scoliosis.
- Consult PT
- pain management: Lidocaine patch, high dose scheduled Tylenol, prn Oxycodone, prn Dilaudid
- Bowel regimen while on narcotic pain medications
- supportive care
- On 04/12/25, I communicated via [place] Text with Dr. Eric Fonseca who recommended considering IR evaluation for kyphoplasty for compression fracture
- Spoke with IR, who recommended MRI for planning for kyphoplasty
#L5 spondylolisthesis
#Cervical Spine spondylolisthesis
-Reported by patient and his
-Per patient and his , he was being planned for surgery (with spine surgeon Dr. Eric Fonseca) of his L5 spondylolisthesis but patient and family were trying to decide whether to go forward with it
#History of Significant Side Effects from Vicodin (Hydrocodone/acetaminophen) and Percocet (Oxycodone/Paracetamol)
#hypertension
- continue home blood pressure control medication regimen
#hyperlipidemia
- continue home medications
- cholesterol lowering diet
#BPH
s/p prostatectomy
#gout
- continue allopurinol
#depression
- continue out patient medications
#Hx DVT
- continue Eliquis
#diverticulosis
Code Status: DNR
DVT Prophylaxis: Eliquis
Anticipated Discharge: Within 24 hours
Subjective/Interval History
-
Date of Service: April 12, 2025
Patient was seen and examined. He reported continued back pain.
Objective Data
-
Vital Signs:
Vital Signs
Temp Pulse Resp BP Pulse Ox
98.1 F 56 18 136/69 94
04/12/25 07:05 04/12/25 07:45 04/12/25 07:05 04/12/25 07:45 04/12/25 07:05
I&O
04/11/25 04/12/25 04/13/25
06:59 06:59 06:59
Intake Total 360 / 360 1560 / 1560
Output Total 175 / 175 1425 / 1425
Balance 185 / 185 135 / 135
--- NOTE | 2025-04-12 10:48 | CM ---
Addendum entered by Michaelle Yepez 04/12/25 15:36:
PT rec SNF
UR tt patient LOC change to inpatient
IMM explained & signed. In chart
options reviewed - [facility] referrals placed
PLAN: SNF, pending bed availability, when stable
Original Note:
Patient seen at bedside
obs status
PT rec HH on 04/10
per note from liaison refused VN, wanted rehab
patient does qualify for [facility] waiver for SNF per Alejandra
discussed participating
PT to eval today
PLAN: HH vs. SNF when medically stable
[2025-04-12] MEDS: TYLENOL 1000 MG PO ×2 (11:42→20:39)
[2025-04-12 13:23] VITALS: BP 129/67; BP 131/67; PULSE 64; O2SAT 96
[2025-04-12 13:28] VITALS: BP 129/67; BP 131/67; PULSE 64; O2SAT 96
[2025-04-12] MEDS: ZOSTRIX-HP 0.075% CREAM 1 APPLIC TOPICAL ×2 (14:25→17:46)
[2025-04-12 15:05] VITALS: BP 117/58
[2025-04-12] MEDS: ZOSTRIX-HP 0.075% CREAM TOPICAL (22:09)
[2025-04-12 23:40] VITALS: BP 102/48
[2025-04-13] MEDS: DILAUDID 0.25 MG IV (00:42)
[2025-04-13] MEDS: TYLENOL PO (04:26)
[2025-04-13 07:00] VITALS: BP 134/71
[2025-04-13] MEDS: CRESTOR 5 MG PO (08:48)
[2025-04-13] MEDS: PROZAC 20 MG PO (08:48)
[2025-04-13] MEDS: IMODIUM 2 MG PO (08:48)
[2025-04-13] MEDS: PROTONIX 40 MG PO (08:48)
[2025-04-13] MEDS: ZYLOPRIM 300 MG PO (08:48)
[2025-04-13] MEDS: PROSCAR 5 MG PO (08:49)
[2025-04-13] MEDS: THERAGRAN 1 TABLET PO (08:49)
[2025-04-13] MEDS: INDERAL 40 MG PO ×2 (08:49→20:52)
[2025-04-13] MEDS: ELIQUIS 5 MG PO ×2 (08:49→20:51)
[2025-04-13] MEDS: ZESTRIL 20 MG PO (08:51)
[2025-04-13] MEDS: ROXICODONE 5 MG PO (09:00)
[2025-04-13] MEDS: ZOSTRIX-HP 0.075% CREAM TOPICAL (09:02)
[2025-04-13] MEDS: LIDOCAINE 4% PATCH TOPICAL (09:02)
--- NOTE | 2025-04-13 12:02 | CM ---
Patient await MRI
patient does qualify [facility] waiver
PT rec SNF
referrals in [facility] for [facility]
PLAN: SNF, pending bed availability
--- NOTE | 2025-04-13 12:39 | W.PN.HOSP.TC ---
Today's Communication/Plan
-
Pain still uncontrolled -- increase pain regimen -- Oxycodone IR increased
MRI pending for kyphoplasty evaluation
Will need SNF/rehab facility placement
Assessment / Plan
Assessment / Plan
Physical Exam
General: Well Developed, Well Nourished and No Apparent Distress
HEENT: Normocephalic, Moist mucous membranes, Atraumatic
Respiratory: Clear to Auscultation Bilaterally
Cardiac: S1/S2 and Regular Rhythm
GI: Soft, Non Tender, Non Distended and Normal Bowel Sounds
Musculoskeletal: No Cyanosis, No Edema and Other (tenderness with palpation to lumbar spine)
Skin: Warm. Dry.
Neuro: Awake, Alert, AO x 3 and Nonfocal/grossly intact
Psych: Calm and Intact Judgment/Insight
Assessment/Plan
80-year-old male with past medical history significant for hypertension, hyperlipidemia, BPH, gout, depression, diverticulosis and Hx DVT who presented to [facility] ED for evaluation of back pain. Patient reports he slipped in garden yesterday and fell
on his back landing on his buttocks. He denies any head strike. Patient states pain radiates slightly to bilateral hips, is sharp and constant. Denies any radiation down legs, no burning pain, no numbness, no loss of control of bowels or bladder.
#back pain 2/2 mechanical fall with L2 compression fracture
Head CT: No evidence of acute intracranial abnormality.
Lumbar x-ray: Mild L2 compression fracture. Age indeterminate. New from previous exam.
Grade 1 anterolisthesis of L5 on S1. Stable.
Multilevel degenerative disc disease. New at all levels.
Bony demineralization. New.
Thoracic x-ray: Stable thoracic spine compression fractures as described above.
Bony demineralization. Scoliosis.
- Consult PT
- pain management: Lidocaine patch, high dose scheduled Tylenol, prn Oxycodone (dose increased), prn Dilaudid. Capsaicin cream stopped as patient reported burning from it.
- Bowel regimen while on narcotic pain medications
- supportive care
- On 04/12/25, I communicated via [place] Text with Dr. Eric Fonseca who recommended considering IR evaluation for kyphoplasty for compression fracture
- Spoke with IR, who recommended MRI for planning for kyphoplasty
- MRI pending
#L5 spondylolisthesis
#Cervical Spine spondylolisthesis
-Reported by patient and his
-Per patient and his , he was being planned for surgery (with spine surgeon Dr. Eric Fonseca) of his L5 spondylolisthesis but patient and family were trying to decide whether to go forward with it
#History of Significant Side Effects from Vicodin (Hydrocodone/acetaminophen) and Percocet (Oxycodone/Paracetamol)
#hypertension
- continue home blood pressure control medication regimen
#hyperlipidemia
- continue home medications
- cholesterol lowering diet
#BPH
s/p prostatectomy
#gout
- continue allopurinol
#depression
- continue out patient medications
#Hx DVT
- continue Eliquis
#diverticulosis
Code Status: DNR
DVT Prophylaxis: Eliquis
Anticipated Discharge: 24 - 48 hours
Subjective/Interval History
-
Date of Service: April 13, 2025
Patient was seen and examined. He reported the pain is better after starting Oxycodone.
Objective Data
-
Vital Signs:
Vital Signs
Temp Pulse Resp BP Pulse Ox
97.8 F 59 18 134/71 95
04/13/25 07:00 04/13/25 07:00 04/13/25 07:00 04/13/25 07:00 04/13/25 07:00
I&O
04/12/25 04/13/25 04/14/25
06:59 06:59 06:59
Intake Total 1560 / 1560 1290 / 1290
Output Total 1425 / 1425 200 / 200
Balance 135 / 135 1090 / 1090
[2025-04-13] MEDS: ROXICODONE 7.5 MG PO ×2 (13:11→21:01)
[2025-04-13] MEDS: TYLENOL 1000 MG PO ×2 (13:12→20:50)
--- NOTE | 2025-04-13 13:45 | PN.CDI ---
CDI
- -
CDI:
Physician Documentation Request
Admit Date: 04/12/25 11:33
Dear Doctor Rikki,
Patient admitted with L2 compression fracture.
H&P, 'Patient reports he slipped in garden yesterday and fell on his back landing on his buttocks.
6/6 PN, 'back pain 2/2 mechanical fall with L2 compression fracture....Lumbar x-ray: Mild L2 compression fracture... Bony demineralization. New.'
Please provide in your note the likely etiology /etiologies of the documented L2 compression fracture:
Multifactorial due to low level fall and age-related osteoporosis
Low level fall only
Other
Use of terms such as suspected, likely, concern for, or probable (associated with a specific diagnosis that is being evaluated, monitored, or treated as if it exists) are acceptable and can be coded in the inpatient setting, when documented at the
time of discharge.
Thank you,
Debbie VENTURA,RN,CCDS
CDI Specialist
Available via [place] text
Please use your independent medical judgment in providing your response.
[2025-04-13 15:26] VITALS: BP 115/56
[2025-04-13] MEDS: ZOFRAN 4 MG IV (16:19)
[2025-04-13 16:29] VITALS: BP 116/61; PULSE 55; O2SAT 98
[2025-04-13] MEDS: IMODIUM PO ×2 (20:51→21:11)
[2025-04-13 23:33] VITALS: BP 116/56
[2025-04-14] MEDS: TYLENOL PO (04:25)
[2025-04-14 07:19] VITALS: BP 141/72
[2025-04-14] MEDS: ROXICODONE 7.5 MG PO ×3 (07:32→20:15)
[2025-04-14] MEDS: ELIQUIS 5 MG PO (07:32)
[2025-04-14] MEDS: PROZAC 20 MG PO (07:32)
[2025-04-14] MEDS: PROTONIX 40 MG PO (07:32)
[2025-04-14] MEDS: ZYLOPRIM 300 MG PO (07:32)
[2025-04-14] MEDS: THERAGRAN 1 TABLET PO (07:33)
[2025-04-14] MEDS: INDERAL PO (07:33)
[2025-04-14] MEDS: IMODIUM 2 MG PO (07:33)
[2025-04-14] MEDS: LIDOCAINE 4% PATCH 1 PATCH TOPICAL (07:33)
[2025-04-14] MEDS: PROSCAR 5 MG PO (07:33)
[2025-04-14] MEDS: ZESTRIL 20 MG PO (07:34)
[2025-04-14] MEDS: ZOFRAN 4 MG IV ×2 (10:39→16:51)
[2025-04-14] MEDS: DILAUDID 0.25 MG IV ×2 (10:42→16:09)
[2025-04-14] MEDS: TYLENOL 1000 MG PO ×2 (11:32→20:48)
[2025-04-14 12:29] VITALS: BP 136/68; PULSE 63; O2SAT 93
--- NOTE | 2025-04-14 14:11 | W.PN.HOSP.TC ---
Today's Communication/Plan
-
Pain improving
Discharge planning -- case management is working on it
Kyphoplasty this week -- either inpatient or outpatient
Assessment / Plan
Assessment / Plan
Physical Exam
General: Well Developed, Well Nourished and No Apparent Distress
HEENT: Normocephalic, Moist mucous membranes, Atraumatic
Respiratory: Clear to Auscultation Bilaterally
Cardiac: S1/S2 and Regular Rhythm
GI: Soft, Non Tender, Non Distended and Normal Bowel Sounds
Musculoskeletal: No Cyanosis, No Edema and Other (tenderness with palpation to lumbar spine)
Skin: Warm. Dry.
Neuro: Awake, Alert, AO x 3 and Nonfocal/grossly intact
Psych: Calm and Intact Judgment/Insight
Assessment/Plan
80-year-old male with past medical history significant for hypertension, hyperlipidemia, BPH, gout, depression, diverticulosis and Hx DVT who presented to [facility] ED for evaluation of back pain. Patient reports he slipped in garden yesterday and fell
on his back landing on his buttocks. He denies any head strike. Patient states pain radiates slightly to bilateral hips, is sharp and constant. Denies any radiation down legs, no burning pain, no numbness, no loss of control of bowels or bladder.
#back pain 2/2 mechanical fall with L2 compression fracture -- multifactorial due to low level fall and possible age-related osteoporosis
Head CT: No evidence of acute intracranial abnormality.
Lumbar x-ray: Mild L2 compression fracture. Age indeterminate. New from previous exam.
Grade 1 anterolisthesis of L5 on S1. Stable.
Multilevel degenerative disc disease. New at all levels.
Bony demineralization. New.
Thoracic x-ray: Stable thoracic spine compression fractures as described above.
Bony demineralization. Scoliosis.
- Consult PT
- pain management: Lidocaine patch, high dose scheduled Tylenol, prn Oxycodone (dose increased), prn Dilaudid. Capsaicin cream stopped as patient reported burning from it.
- Bowel regimen while on narcotic pain medications
- supportive care
- On 04/12/25, I communicated via [place] Text with Dr. Eric Fonseca who recommended considering IR evaluation for kyphoplasty for compression fracture
- Spoke with IR, who recommended MRI for planning for kyphoplasty --> MRI L-spine showed acute L2 compression fracture
- IR Dr. Espitia mentioned kyphoplasty can be done this upcoming week
#L5 spondylolisthesis
#Cervical Spine spondylolisthesis
-Reported by patient and his
-Per patient and his , he was being planned for surgery (with spine surgeon Dr. Eric Fonseca) of his L5 spondylolisthesis but patient and family were trying to decide whether to go forward with it
#History of Significant Side Effects from Vicodin (Hydrocodone/acetaminophen) and Percocet (Oxycodone/Paracetamol)
#hypertension
- continue home blood pressure control medication regimen
#hyperlipidemia
- continue home medications
- cholesterol lowering diet
#BPH
s/p prostatectomy
#gout
- continue allopurinol
#depression
- continue out patient medications
#Hx DVT
- continue Eliquis
#diverticulosis
Code Status: DNR
DVT Prophylaxis: Eliquis
Anticipated Discharge: 24 - 48 hours
Subjective/Interval History
-
Date of Service: April 14, 2025
Patient was seen and examined. He reported pain is better, having good bowel movements.
Objective Data
-
Vital Signs:
Vital Signs
Temp Pulse Resp BP Pulse Ox
98.0 F 58 18 141/72 97
04/14/25 07:19 04/14/25 07:19 04/14/25 07:19 04/14/25 07:19 04/14/25 07:19
I&O
04/13/25 04/14/25 04/15/25
06:59 06:59 06:59
Intake Total 1290 / 1290 1140 / 1140
Output Total 200 / 200 2400 / 2400
Balance 1090 / 1090 -1260 / -1260
[2025-04-14 15:09] VITALS: BP 97/49
--- NOTE | 2025-04-14 15:37 | CM ---
Addendum entered by Lizy Gerardo 04/15/25 14:20:
Referrals sent to [facility] (willing to accept), [facility] (willing to accept), [facility] and [facility].
Original Note:
CM met with Angelito today to discuss discharge. He does not feel that he is ready for discharge, but is willing to go to [facility] once his pain is managed. Discussed with MD and RN; pt does not ring when he is in pain. RN speaking with patient about
pain medication; Dr. Barbour aware of pt's concerns.
Dr. Martinez involved for possible kyphoplasty early next week.
Plan: Discharge to SNF pending kyphoplasty early next week.
[2025-04-14 16:00] VITALS: BP 137/78
[2025-04-14] MEDS: IMODIUM PO (20:42)
[2025-04-14] MEDS: INDERAL 40 MG PO (20:49)
[2025-04-14] MEDS: ELIQUIS PO (20:56)
--- NOTE | 2025-04-14 21:30 | PTCARENOTE ---
Patient refusing Eliquis due to upcoming kyphoplasty on Wednesday. DIRECTOR OF INSTRUMENTAL MUSIC Alma Delia Landry notified. Will continue to monitor.
[2025-04-14 23:18] VITALS: BP 113/57
[2025-04-15] MEDS: DILAUDID 0.25 MG IV ×3 (00:38→23:10)
[2025-04-15] MEDS: TYLENOL 1000 MG PO ×3 (04:04→20:32)
[2025-04-15] MEDS: ROXICODONE 7.5 MG PO (06:59)
[2025-04-15 07:00] VITALS: BP 132/72
[2025-04-15] MEDS: LIDOCAINE 4% PATCH 1 PATCH TOPICAL (07:33)
[2025-04-15] MEDS: THERAGRAN 1 TABLET PO (07:34)
[2025-04-15] MEDS: ZYLOPRIM 300 MG PO (07:34)
[2025-04-15] MEDS: PROTONIX 40 MG PO (07:34)
[2025-04-15] MEDS: PROSCAR 5 MG PO (07:34)
[2025-04-15] MEDS: IMODIUM 2 MG PO ×2 (07:34→20:32)
[2025-04-15] MEDS: PROZAC 20 MG PO (07:34)
[2025-04-15] MEDS: ZESTRIL 20 MG PO (07:38)
--- NOTE | 2025-04-15 07:40 | W.PN.HOSP.TC ---
Today's Communication/Plan
-
Kyphoplasty on Thursday April 17, 2025
Holding Eliquis for the above procedure
Start therapeutic 1 mg/kg Lovenox tonight (in lieu of Eliquis) given his active RLE DVTs
Pain control
Assessment / Plan
Assessment / Plan
Physical Exam
General: Well Developed, Well Nourished and No Apparent Distress
HEENT: Normocephalic, Moist mucous membranes, Atraumatic
Respiratory: Clear to Auscultation Bilaterally
Cardiac: S1/S2 and Regular Rhythm
GI: Soft, Non Tender, Non Distended and Normal Bowel Sounds
Musculoskeletal: No Cyanosis, No Edema and Other (tenderness with palpation to lumbar spine)
Skin: Warm. Dry.
Neuro: Awake, Alert, AO x 3 and Nonfocal/grossly intact
Psych: Calm and Intact Judgment/Insight
Assessment/Plan
80-year-old male with past medical history significant for hypertension, hyperlipidemia, BPH, gout, depression, diverticulosis and Hx DVT who presented to [facility] ED for evaluation of back pain. Patient reports he slipped in garden yesterday and fell
on his back landing on his buttocks. He denies any head strike. Patient states pain radiates slightly to bilateral hips, is sharp and constant. Denies any radiation down legs, no burning pain, no numbness, no loss of control of bowels or bladder.
#back pain 2/2 mechanical fall with L2 compression fracture -- multifactorial due to low level fall and possible age-related osteoporosis
- pain management: Lidocaine patch, high dose scheduled Tylenol, prn Oxycodone (dose increased), prn Dilaudid. Capsaicin cream stopped as patient reported burning from it.
- Bowel regimen while on narcotic pain medications -- patient has been having good bowel movements
- On 04/12/25, I communicated via [employer] with Dr. Eric Fonseca who recommended considering IR evaluation for kyphoplasty for compression fracture
- Spoke with IR, who recommended MRI for planning for kyphoplasty --> MRI L-spine showed acute L2 compression fracture
- IR Dr. Espitia mentioned kyphoplasty will be done Wednesday04/17/25
- Patient and his stated that they want kyphoplasty done here prior to discharge given his severe pain
- Bridging with therapeutic Lovenox while holding Eliquis in preparation for kyphoplasty on Wednesday04/17/25
#Recently Diagnosed Extensive DVTs in the Right Lower Extremity - Diagnosed in March 2025
- See results of peripheral vascular ultrasound studies (done in March 2025) under the Imaging section in this chart
- Hold Eliquis for Kyphoplasty on Wednesday04/17/25 (last dose of Eliquis was 04/15/25 morning)
- Start therapeutic Lovenox 1 mg/kg Q12H starting 04/15/25 evening -- monitor weight and renal function while on Lovenox
- Patient is supposed to start seeing a environmental services assistant outpatient
#L5 spondylolisthesis
#Cervical Spine spondylolisthesis
-Reported by patient and his
-Per patient and his , he was being planned for surgery (with spine surgeon Dr. Eric Fonseca) of his L5 spondylolisthesis but patient and family were trying to decide whether to go forward with it
#History of Significant Side Effects from Vicodin (Hydrocodone/acetaminophen) and Percocet (Oxycodone/Paracetamol)
#hypertension
- continue home blood pressure control medication regimen
#hyperlipidemia
- continue home medications
- cholesterol lowering diet
#BPH
s/p prostatectomy
#gout
- continue allopurinol
#depression
- continue out patient medications
#diverticulosis
Code Status: DNR
DVT Prophylaxis: Therapeutic Lovenox
On April 15, 2025, I spent an extensive amount of time speaking with both patient and his , inside patient's room, and I answered all of their questions and concerns to satisfaction, including the fact that we will be holding Eliquis for
kyphoplasty and will start therapeutic Lovenox OR Heparin Drip. They were in agreement with the management plan going forward.
Anticipated Discharge: > 48 hours
Subjective/Interval History
-
Date of Service: April 15, 2025
Patient was seen and examined. He remained in a significant amount of back pain from his compression fracture. He denied any other new symptoms or complaints.
Objective Data
-
Vital Signs:
Vital Signs
Temp Pulse Resp BP Pulse Ox
97.7 F 57 16 132/72 95
04/15/25 07:00 04/15/25 07:00 04/15/25 07:00 04/15/25 07:00 04/15/25 07:00
I&O
04/14/25 04/15/25 04/16/25
06:59 06:59 06:59
Intake Total 1140 / 1140 840 / 840
Output Total 2400 / 2400 375 / 375
Balance -1260 / -1260 465 / 465
[2025-04-15] MEDS: INDERAL PO (07:41)
[2025-04-15] MEDS: ELIQUIS 5 MG PO (07:45)
[2025-04-15 10:24] VITALS: BP 143/63; PULSE 62; O2SAT 97
[2025-04-15] MEDS: ROXICODONE 10 MG PO ×3 (10:51→20:31)
[2025-04-15 11:29] LABS: Blood Urea Nitrogen 19 mg/dl (9-20); Calcium 9.3 mg/dl (8.4-10.2); Carbon Dioxide 28 mmol/L (22-30); Chloride 107 mmol/L (98-107); Estimated Creatinine Clearance 79 ml/min; Glucose 88 mg/dl (70-99); Potassium 4.6 mmol/L (3.5-5.1); Sodium 140 mmol/L (135-145); eGFR > 60.00
[2025-04-15 15:32] VITALS: BP 126/61
[2025-04-15] MEDS: LOVENOX 80 MG SC (20:39)
[2025-04-15] MEDS: INDERAL 40 MG PO (21:36)
[2025-04-15 23:00] VITALS: BP 138/71
[2025-04-16] MEDS: TYLENOL PO (04:21)
[2025-04-16] MEDS: ROXICODONE 10 MG PO ×3 (04:50→21:34)
[2025-04-16 07:37] VITALS: BP 133/75
[2025-04-16] MEDS: PROSCAR 5 MG PO (07:56)
[2025-04-16] MEDS: CRESTOR 5 MG PO (07:56)
[2025-04-16] MEDS: PROTONIX 40 MG PO (07:56)
[2025-04-16] MEDS: LOVENOX 80 MG SC (07:56)
[2025-04-16] MEDS: PROZAC 20 MG PO (07:56)
[2025-04-16] MEDS: THERAGRAN 1 TABLET PO (07:56)
[2025-04-16] MEDS: ZYLOPRIM 300 MG PO (08:00)
[2025-04-16] MEDS: ZOFRAN 4 MG IV (08:00)
[2025-04-16] MEDS: INDERAL 40 MG PO ×2 (08:00→19:56)
[2025-04-16] MEDS: ZESTRIL 20 MG PO (08:00)
[2025-04-16] MEDS: IMODIUM PO (08:01)
[2025-04-16] MEDS: LIDOCAINE 4% PATCH 1 PATCH TOPICAL (08:01)
[2025-04-16] MEDS: DILAUDID 0.25 MG IV ×2 (08:10→16:16)
--- NOTE | 2025-04-16 10:23 | CM ---
Patient seen at bedside
Kyphoplasty on WednesdayApril 17
referrals in [facility] for SNF
PLAN: SNF, pending kyphoplasty Wednesday
--- NOTE | 2025-04-16 10:33 | W.PN.GENERIC ---
Assessment / Plan
-
This is a pleasant 80-year-old male with a symptomatic L2 compression fracture. He was admitted for intractable pain after a fall last week. He had an MRI which confirms an acute L2 compresion fracture. The symptoms are interfering with his
activities of daily living. We discussed treatment options including conservative management with brace and pain medication, CAROLINE injection and vertebral augmentation. He has no comorbidities that would interfere with planned treatment. I believe he
should be a good candidate for L2 vertebral augmentation.
I discussed the technique of vertebral body augmentation including the logistics, risks and benefits, success and failure rates as well as alternatives. Risks include but are not limited to: incomplete treatment, need for surgery, infection, abscess
formation, spinal cord injury and paralysis.� We discussed the probability of outcomes and the length of convalescence post procedure.�
Plan to perform the procedure tomorrow (04/17/25)
The procedure will be performed with anesthesia support.
He will need to hold his Eliquis until after the procedure
He will need to be NPO after midnight tonight
The procedure will be performed with anesthesia support
I spent over one hour in counseling and coordination of care with the patient, reviewing previous medical records, laboratory studies and all relevant imaging, including history taking, physical exam and documentation as well as discussing the
procedure and expected outcome with the patient.
Physician Progress Note
Subjective
Interventional Radiology
Dx: Intractable back Pain, L2 compression Fracture
Consult: Petr Brandt
This is a 80-year-old male with past medical history significant for hypertension, hyperlipidemia, BPH, gout, depression, diverticulosis and recent DVT who presented to the ER for evaluation of back pain. Patient reports he slipped in the garden
about a week ago falling onto his back landing on his buttocks. He denies any head injury or neck pain. He has had back pain since the fall . He reports the pain radiates slightly to bilateral hips, and is sharp in nature. Pain is exacerbated upon
movement. He denies any radiation down legs, burning pain, paresthesias, weakness or loss of bowel or bladder control. He has beed\\n taking pain medication with only minimal improvement in symptoms.
Past Medical History
hypertension
hyperlipidemia
BPH
gout
depression
diverticulosis
R leg DVT
GI bleeding
bladder tumor
prostatic malignancy
Past Surgical History:
TURBT 2014/2016
skin cancer excision
Radical prostatectomy 2020
Social History
Tobacco: Former Smoker
Alcohol: Daily (1-2 beers or glasses of wine )
Personal:
Allergies:
Levaquin-nausea and vomiting
Tramadol- nausea and vomiting
Medications:
vitamin B complex 1 TAB tablet PO DAILY
fluoxetine 20 mg PO DAILY,
omeprazole 20 MG capsule 20 mg PO DAILY
allopurinol 300 MG PO DAILY
lisinopril 20 mg PO DAILY
rosuvastatin 5 mg PO MOWEFR
loperamide 2 mg PO BID
hydrocodone-acetaminophen 5-325 mg 1 tab PO Q8HPRN severe pain
multivitamin 1 tab PO DAILY
Tums 300 mg 1 Tablet PO HSPRN PRN stomach issues
milk thistle 150 mg PO DAILY
simethicone 125 mg PO BID
Visbiome 112.5 billion cell Capsule 1 cap PO DAILY
acetylcysteine [NAC] 600 mg Capsule 1,200 mg PO DAILY
Eliquis 5 mg PO BID
Objective
Vital Signs
Temp Pulse Resp BP Pulse Ox
97.5 F 53 12 133/75 97
04/16/25 07:37 04/16/25 07:37 04/16/25 07:37 04/16/25 08:00 04/16/25 07:37
Lab Results
04/10/25 12:51
04/15/25 10:52
This is a WNWD 80 yo male in NAD. Color is good. Skin is warm and dry. Neck is supple. Heart is regular. Lungs are CTA. Abdomen is soft and nontender with BS present. No LE pain or edema. There is ttp over the lumbar spine. SLR is negative.
Senstation is mantained. Strength is 5/5. Palpable pedal pulses
[2025-04-16 10:45] VITALS: BP 120/66; PULSE 66; O2SAT 95
[2025-04-16] MEDS: TYLENOL 1000 MG PO ×2 (11:25→19:55)
--- NOTE | 2025-04-16 12:43 | W.PN.HOSP.TC ---
Today's Communication/Plan
-
N.p.o. after midnight
stop Lovenox
SCDs
Assessment / Plan
Assessment / Plan
Gen-AAOx3, mild distress due to pain
HEENT-NC, AT, anicteric, clear oral mm
Neck-supple
CV-reg, no M, +S1/S2
Lungs-clear B/L
Abd-soft, NT, ND
Ext-no edema
Musculoskeletal-no cyanosis, clubbing
Skin-warm and dry
Neuro-grossly non-focal
Psych-calm, cooperative
Acute traumatic L2 compression fracture -- multifactorial due to low level fall and osteoporosis. Continue opiates. Patient cannot tolerate NSAIDs due to history of GI bleeding.
Bowel regimen. PT/OT.
N.p.o. after midnight for vertebroplasty tomorrow. Discussed with IR. Hold further anticoagulation in preparation for vertebroplasty.
Recommend outpatient follow-up with PCP to start treatment for osteoporosis. Discussed with patient.
Recommend strict alcohol abstinence, given that alcohol causes progression of osteoporosis. Discussed with patient.
Thoracic spine x-ray does show other vertebral compression fractures that are likely chronic.
Recently Diagnosed Extensive DVTs in the Right Lower Extremity - Diagnosed in March 2025
- See results of peripheral vascular ultrasound studies (done in March 2025) under the Imaging section in this chart
- Hold Eliquis for Kyphoplasty on Wednesday04/17/25 (last dose of Eliquis was 04/15/25 morning), hold Lovenox as well.
- Patient is supposed to start seeing a legal compliance officer outpatient
L5 spondylolisthesis
Cervical Spine spondylolisthesis
-Reported by patient and his
-Per patient and his , he was being planned for surgery (with spine surgeon Dr. Eric Fonseca) of his L5 spondylolisthesis but patient and family were trying to decide whether to go forward with it
History of Significant Side Effects from Vicodin (Hydrocodone/acetaminophen) and Percocet (Oxycodone/Paracetamol)
Essential hypertension
- continue home blood pressure control medication regimen
Hyperlipidemia -rosuvastatin.
BPH
s/p prostatectomy
gout
- continue allopurinol
depression
- continue out patient medications
diverticulosis
DNR
Dispo -SNF recommended by PT.
Anticipated Discharge: > 48 hours
Subjective/Interval History
-
Date of Service: April 16, 2025
Patient seen and examined. Complaining of 5 out of 10 back pain.
Objective Data
-
Vital Signs:
Vital Signs
Temp Pulse Resp BP Pulse Ox
97.5 F 53 12 133/75 97
04/16/25 07:37 04/16/25 07:37 04/16/25 07:37 04/16/25 08:00 04/16/25 07:37
I&O
04/15/25 04/16/25 04/17/25
06:59 06:59 06:59
Intake Total 840 / 840 1200 / 1200
Output Total 375 / 375 1425 / 1425
Balance 465 / 465 -225 / -225
Review of Systems
-
History Source: Patient
All other systems: Reviewed and negative
[2025-04-16 15:33] VITALS: BP 108/56
[2025-04-16] MEDS: IMODIUM 2 MG PO (19:55)
[2025-04-16 23:18] VITALS: BP 126/61
[2025-04-17] VITALS (17 sets, daily range): BP systolic 43–157; BP diastolic 64–85; PULSE 60
[2025-04-17] MEDS: TYLENOL 1000 MG PO ×2 (05:01→20:05)
[2025-04-17] MEDS: LIDOCAINE 4% PATCH TOPICAL (07:56)
[2025-04-17] MEDS: IMODIUM PO ×2 (07:56→20:06)
[2025-04-17] MEDS: PROZAC 20 MG PO (07:57)
[2025-04-17] MEDS: INDERAL 40 MG PO ×2 (07:57→20:06)
[2025-04-17] MEDS: ZYLOPRIM 300 MG PO (07:57)
[2025-04-17] MEDS: PROSCAR 5 MG PO (07:57)
[2025-04-17] MEDS: PROTONIX 40 MG PO (07:57)
[2025-04-17] MEDS: ZESTRIL 20 MG PO (07:57)
[2025-04-17] MEDS: THERAGRAN 1 TABLET PO (07:57)
--- NOTE | 2025-04-17 08:22 | W.PN.HOSP.TC ---
Today's Communication/Plan
-
Vertebroplasty today.
Assessment / Plan
Assessment / Plan
Gen-AAOx3, mild distress due to pain
HEENT-NC, AT, anicteric, clear oral mm
Neck-supple
CV-reg, no M, +S1/S2
Lungs-clear B/L
Abd-soft, NT, ND
Ext-no edema
Musculoskeletal-no cyanosis, clubbing
Skin-warm and dry
Neuro-grossly non-focal
Psych-calm, cooperative
Acute traumatic L2 compression fracture -- multifactorial due to low level fall and osteoporosis. Continue opiates. Patient cannot tolerate NSAIDs due to history of GI bleeding.
Bowel regimen. PT/OT.
N.p.o. for vertebroplasty today. Discussed with IR. Hold further anticoagulation in preparation for vertebroplasty.
Recommend outpatient follow-up with PCP to start treatment for osteoporosis. Discussed with patient.
Recommend strict alcohol abstinence, given that alcohol causes progression of osteoporosis. Discussed with patient.
Thoracic spine x-ray does show other vertebral compression fractures that are likely chronic.
Recently Diagnosed Extensive DVTs in the Right Lower Extremity - Diagnosed in March 2025
- See results of peripheral vascular ultrasound studies (done in March 2025) under the Imaging section in this chart
- Hold Eliquis for Kyphoplasty on Wednesday04/17/25 (last dose of Eliquis was 04/15/25 morning), hold Lovenox as well.
- Patient is supposed to start seeing a remelt furnace expediter outpatient
L5 spondylolisthesis
Cervical Spine spondylolisthesis
-Reported by patient and his
-Per patient and his , he was being planned for surgery (with spine surgeon Dr. Eric Fonseca) of his L5 spondylolisthesis but patient and family were trying to decide whether to go forward with it
History of Significant Side Effects from Vicodin (Hydrocodone/acetaminophen) and Percocet (Oxycodone/Paracetamol)
Essential hypertension
- continue home blood pressure control medication regimen
Hyperlipidemia -rosuvastatin.
BPH
s/p prostatectomy
gout
- continue allopurinol
depression
- continue out patient medications
diverticulosis
DNR
Dispo -SNF recommended by PT.
Anticipated Discharge: Within 24 hours
Subjective/Interval History
-
Date of Service: April 17, 2025
Patient seen and examined. Feels a little bit better, 4 out of 10 lower back pain. Did have a bowel movement this morning.
Objective Data
-
Vital Signs:
Vital Signs
Temp Pulse Resp BP Pulse Ox
98.5 F 55 12 150/75 93
04/17/25 07:45 04/17/25 07:57 04/17/25 07:45 04/17/25 07:57 04/17/25 07:45
I&O
04/16/25 04/17/25 04/18/25
06:59 06:59 06:59
Intake Total 1200 / 1200 480 / 480
Output Total 1425 / 1425 2100 / 2100
Balance -225 / -225 -1620 / -1620
Review of Systems
-
History Source: Patient
All other systems: Reviewed and negative
[2025-04-17] MEDS: ROXICODONE 10 MG PO ×3 (08:51→23:46)
--- NOTE | 2025-04-17 10:13 | CM ---
Patient seen at bedside
Referrals [facility] for SNF
no preauth
Await procedure today-Vertebroplasty
PLAN: SNF, pending bed availability when stable
[2025-04-17] MEDS: ANCEF 10 IV (11:43)
[2025-04-17] MEDS: TYLENOL PO (13:35)
[2025-04-17] MEDS: DILAUDID 0.25 MG IV ×2 (14:27→20:13)
--- NOTE | 2025-04-17 15:35 | PTCARENOTE ---
pt returned from [facility] awake and alert, c/o 05/17 back pain. See JAN. VS obtained as ordered, diet order obtained. spouse at bedside. dressing to mid lower back CDI. +PP b/l. CB in reach
[2025-04-18] MEDS: TYLENOL PO (04:13)
[2025-04-18] MEDS: TYLENOL 1000 MG PO ×2 (04:35→11:37)
[2025-04-18 05:21] VITALS: BMI 23.7
[2025-04-18] MEDS: PROSCAR 5 MG PO (07:29)
[2025-04-18] MEDS: INDERAL 40 MG PO (07:29)
[2025-04-18] MEDS: LIDOCAINE 4% PATCH 1 PATCH TOPICAL (07:29)
[2025-04-18] MEDS: PROZAC 20 MG PO (07:29)
[2025-04-18] MEDS: ZYLOPRIM 300 MG PO (07:29)
[2025-04-18] MEDS: THERAGRAN 1 TABLET PO (07:29)
[2025-04-18] MEDS: CRESTOR 5 MG PO (07:29)
[2025-04-18] MEDS: PROTONIX 40 MG PO (07:29)
[2025-04-18] MEDS: ZESTRIL 20 MG PO (07:29)
[2025-04-18] MEDS: IMODIUM PO (07:31)
[2025-04-18] MEDS: DILAUDID 0.25 MG IV (07:35)
[2025-04-18] MEDS: FLUSH (NSS) 2 FLUSH IV (07:35)
[2025-04-18 07:40] VITALS: BP 135/66
--- NOTE | 2025-04-18 10:00 | W.PN.HOSP.TC ---
Today's Communication/Plan
-
Resume Eliquis
Discharge planning
Assessment / Plan
Assessment / Plan
Gen-AAOx3, NAD
HEENT-NC, AT, anicteric, clear oral mm
Neck-supple
CV-reg, no M, +S1/S2
Lungs-clear B/L
Abd-soft, NT, ND
Ext-no edema
Musculoskeletal-no cyanosis, clubbing
Skin-warm and dry
Neuro-grossly non-focal
Psych-calm, cooperative
Acute traumatic L2 compression fracture -- multifactorial due to low level fall and osteoporosis. Continue opiates. Patient cannot tolerate NSAIDs due to history of GI bleeding.
Bowel regimen. PT/OT.
Pain much improved. Underwent vertebroplasty on April 17. Discontinue further IV Dilaudid. Continue oxycodone as needed. Bowel regimen.
Recently Diagnosed Extensive DVTs in the Right Lower Extremity - Diagnosed in March 2025
- See results of peripheral vascular ultrasound studies (done in March 2025) under the Imaging section in this chart
- Okay to resume Eliquis today, discussed with IR service.
- Patient is supposed to start seeing a lieutenant colonel outpatient
L5 spondylolisthesis
Cervical Spine spondylolisthesis
-Reported by patient and his
-Per patient and his , he was being planned for surgery (with spine surgeon Dr. Eric Fonseca) of his L5 spondylolisthesis but patient and family were trying to decide whether to go forward with it
History of Significant Side Effects from Vicodin (Hydrocodone/acetaminophen) and Percocet (Oxycodone/Paracetamol)
Essential hypertension
- continue home blood pressure control medication regimen
Hyperlipidemia -rosuvastatin.
BPH
s/p prostatectomy
gout
- continue allopurinol
depression
- continue out patient medications
diverticulosis
DNR
Dispo -SNF recommended by PT, medically stable for discharge. Discussed with case management.
Anticipated Discharge: Within 24 hours
Subjective/Interval History
-
Date of Service: April 18, 2025
Patient seen and examined. No complaints. Feeling much better.
Objective Data
-
Vital Signs:
Vital Signs
Temp Pulse Resp BP Pulse Ox
97.7 F 54 18 135/66 97
04/18/25 07:40 04/18/25 07:40 04/18/25 07:40 04/18/25 07:40 04/18/25 07:40
I&O
04/17/25 04/18/25 04/19/25
06:59 06:59 06:59
Intake Total 480 / 480 1220 / 1220
Output Total 2100 / 2100 1200 / 1200
Balance -1620 / -1620 20 / 20
Review of Systems
-
History Source: Patient
All other systems: Reviewed and negative
[2025-04-18 11:35] VITALS: BP 131/65; PULSE 50; O2SAT 97
--- NOTE | 2025-04-18 11:38 | CM ---
Patient seen at bedside
PT re-eval post procedure rec Home Health
Options reviewed & prefers [facility]
Notified [facility] liaison and referral entered
IMM explained & signed
PLAN: Home with [facility]
to transport
--- NOTE | 2025-04-18 11:52 | W.DS.TRANS ---
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
-
Discharge Instructions:
Discharge Diagnosis/Procedures Lumbar L2 compression fracture
Diet Regular
Activity As tolerated
Driving Restrictions As prior to admission
Bathing Restrictions None
Other Services PT
Instructions:
Stand-Alone Forms:
Changes to Home Medications: No
Discharge Medications:
DC Medications w/original date entered in [employer]
fluoxetine 20 mg capsule 20 mg PO DAILY depression/anxiety 02/23/18
vitamin B complex 1 tab PO DAILY Supplement 02/23/18
allopurinol 300 mg tablet 300 mg PO DAILY Gout 09/13/18
omeprazole 20 mg capsule,delayed release 20 mg PO DAILY Gastrointestinal issue 09/13/18
lisinopril 20 mg tablet 20 mg PO DAILY Blood Pressure 03/23/24
rosuvastatin 5 mg tablet 5 mg PO MOWEFR@0800 High Cholesterol 03/23/24
Lactobac no.2-Bifidobac no.1-S. thermo 112.5 billion cell capsule (Visbiome) 1 cap PO DAILY Supplement 08/21/24
calcium carbonate (Tums) 300 mg PO HSPRN PRN stomach issues 08/21/24
loperamide 2 mg capsule 2 mg PO BID diarrhea 08/21/24
milk thistle 150 mg capsule 140 mg PO DAILY Supplement 08/21/24
simethicone 125 mg tablet 125 mg PO BIDPRN PRN gas pains 08/21/24
therapeutic multivitamin 1 tab PO DAILY Supplement 08/21/24
apixaban 5 mg tablet (Eliquis) 5 mg PO BID #70 tabs 03/12/25
digestive enzymes 1 cap PO DAILY Supplement 04/10/25
dutasteride 0.5 mg capsule 0.5 mg PO DAILY Urinary Issue 04/10/25
guar gum 1 tbsp PO DAILY Constipation 04/10/25
propranolol 40 mg tablet 40 mg PO BID Blood Pressure 04/10/25
lidocaine 4 % topical patch 1 patch topical DAILY #7 ea 04/18/25
oxycodone-acetaminophen 5 mg-325 mg tablet 1 - 2 tab PO Q4H PRN severe pain #20 tabs 04/18/25
Home Medication Changes
Pending Results: No
--- NOTE | 2025-04-18 12:14 | W.PN.UPDATE ---
Update Note
Progress Note Update
This is a pleasant 80-year-old male with a symptomatic L2 compression fracture. He was admitted for intractable pain after a fall last week. He had an L2 vertebroplasty yesterday. He reports the pain is much better. He was
able to participate in PT today. He is able to sit up with minimal pain. Plan to discharge home today.
Past Medical History:
hypertension
hyperlipidemia
BPH
gout
depression
diverticulosis
R leg DVT
GI bleeding
bladder tumor
prostatic malignancy
Past Surgical History:
TURBT
skin cancer excision
Radical prostatectomy 2020
Social History
Tobacco: Former Smoker
Alcohol: Daily (1-2 beers or glasses of wine )
Personal:
Allergies:
Levaquin-nausea and vomiting
Tramadol- nausea and vomiting
Medications:
vitamin B complex 1 TAB tablet PO DAILY fluoxetine 20 mg PO DAILY, omeprazole 20 MG capsule 20 mg PO DAILY allopurinol 300 MG PO DAILY lisinopril 20 mg PO DAILY rosuvastatin 5 mg PO MOWEFR loperamide 2 mg PO BID hydrocodone-acetaminophen 5-325 mg 1
tab PO Q8HPRN severe pain multivitamin 1 tab PO DAILY Tums 300 mg 1 Tablet PO HSPRN PRN stomach issues milk thistle 150 mg PO DAILY simethicone 125 mg PO BID Visbiome 112.5 billion cell Capsule 1 cap PO DAILY acetylcysteine [NAC] 600 mg Capsule
1,200 mg PO DAILY Eliquis 5 mg PO BID
PE:
This is a WNWD 80 yo make in NAD sitting up in a chair. Color is good. Normal repiratory effort. Minimal midline back tenderness.
A/P:
80 yo male with L2 compression fracture after a fall. He had a vertebral augmentation yesterday and is feeling much better.
Plan to d/c home today
--- NOTE | 2025-04-18 12:25 | VNURNOTE ---
Home Health Liaison met with patient at bedside to discuss [facility] nurse/therapy, visits, schedule and homebound status. Patient is agreeable and understands that visits at home will be 2-3 x per week to assess and teach medical management.
Patient is aware that [facility] will contact them for start of care in 1-2 days after discharge from .
[facility] referral completed in [facility].
[2025-04-18 13:18] VITALS: BP 133/71
== END 2025-04-18 14:01 | disposition home health service (06) | DRG 517 ==
LOC: 3 WEST ACU 11:33
PROVIDERS: Hospitalist; Nurse Practitioner; Radiology Vascular & Interventional Radiology; ADMITTING PHYSICIAN Internal Medicine; ATTENDING PHYSICIAN Hospitalist; EMERGENCY PHYSICIAN Emergency Medicine; FAMILY PHYSICIAN Student in an Organized Health Care Education/Training Program
PROC: 0QS03ZZ Reposition Lumbar Vertebra, Percutaneous Approach (ICD-10-PCS; 2025-04-17)
PROC: 0QU03JZ Supplement Lumbar Vertebra with Synthetic Substitute, Percutaneous Approach (ICD-10-PCS; 2025-04-17)
DX: M80.08XA Age-related osteoporosis with current pathological fracture, vertebra(e), initial encounter for fracture (principal); E78.00 Pure hypercholesterolemia, unspecified; F32.A Depression, unspecified; I10 Essential (primary) hypertension; M10.9 Gout, unspecified; N40.0 Benign prostatic hyperplasia without lower urinary tract symptoms; R73.03 Prediabetes; K64.9 Unspecified hemorrhoids; W01.0XXA Fall on same level from slipping, tripping and stumbling without subsequent striking against object, initial encounter; Y93.9 Activity, unspecified; Y92.007 Garden or yard of unspecified non-institutional (private) residence as the place of occurrence of the external cause; Z66 Do not resuscitate; Z87.891 Personal history of nicotine dependence; Z85.46 Personal history of malignant neoplasm of prostate; Z87.19 Personal history of other diseases of the digestive system; Z79.01 Long term (current) use of anticoagulants; Z86.718 Personal history of other venous thrombosis and embolism; Z86.73 Personal history of transient ischemic attack (TIA), and cerebral infarction without residual deficits; Z90.79 Acquired absence of other genital organ(s)
CPT/HCPCS: 22514; 70450; 72072; 72110; 72148; 80048; 80053; 85025; 93005; 96374; 96375; 97110; 97116; 97163; 97167; 97530; 97535; 99285

== ENCOUNTER → 2025-05-12 07:39 | Outpatient (REF) | payer MEDICARE, OTHER, SELFPAY ==
[2025-05-12 08:42] LABS: Hematocrit 37.7 % (39.0-52.0); Hemoglobin 12.7 g/dL (13.0-18.0); Mean Corp Hgb Conc. 33.7 g/dL (33.0-37.0); Mean Corpuscular Volume 97.2 fL (80.0-94.0); Nucleated Red Blood Cells % 0 % (-); Platelet Count 157 10^3/uL (130-400); Red Cell Dist. Width 13.3 % (11.5-14.5)
[2025-05-12 09:26] LABS: Vitamin D, 25-OH*** 64.3 ng/mL (30-80)
[2025-05-12 09:31] LABS: ALT (SGPT) 22 U/L (0-50); AST (SGOT) 20 U/L (17-59); Albumin 4.2 g/dl (3.5-5.0); Alkaline Phosphatase 49 U/L (38-126); Blood Urea Nitrogen 18 mg/dl (9-20); Calcium 9.4 mg/dl (8.4-10.2); Carbon Dioxide 25 mmol/L (22-30); Chloride 112 mmol/L (98-107); Glucose 101 mg/dl (70-99); Potassium 4.3 mmol/L (3.5-5.1); Sodium 141 mmol/L (135-145); Total Protein 6.6 g/dl (6.3-8.2); Uric Acid 5.2 mg/dl (3.5-8.5); eGFR > 60.00
[2025-05-12 09:44] LABS: Ferritin 74.8 ng/ml (17.9-464.0)
== END ==
LOC: REG 07:39
PROVIDERS: ATTENDING PHYSICIAN Student in an Organized Health Care Education/Training Program; FAMILY PHYSICIAN Student in an Organized Health Care Education/Training Program
DX: E55.9 Vitamin D deficiency, unspecified (principal); M81.0 Age-related osteoporosis without current pathological fracture; K62.5 Hemorrhage of anus and rectum; M10.9 Gout, unspecified
CPT/HCPCS: 36415; 80053; 82306; 82728; 83970; 84100; 84270; 84402; 84403; 84550; 85025

== ENCOUNTER → 2025-06-07 08:44 | Outpatient (REF) | payer MEDICARE, OTHER, SELFPAY | LOC: RAD 08:44 | PROVIDERS: ATTENDING PHYSICIAN Student in an Organized Health Care Education/Training Program; FAMILY PHYSICIAN Student in an Organized Health Care Education/Training Program | DX: S32.000D Wedge compression fracture of unspecified lumbar vertebra, subsequent encounter for fracture with routine healing (principal); S32.020A Wedge compression fracture of second lumbar vertebra, initial encounter for closed fracture | CPT/HCPCS: 77080 ==

== ENCOUNTER → 2025-06-12 06:32 | Outpatient (REF) | payer MEDICARE, OTHER, SELFPAY ==
[2025-06-12 07:45] LABS: D-Dimer 1.54 ug/mlFEU (0.00-0.50)
[2025-06-12 10:13] LABS: PSA, Total - Diagnostic 0.50 ng/ml (0.0-4.0)
[2025-06-14 12:40] LABS: Protein S Total Antigen 137 % (84-134)
[2025-06-14 17:17] LABS: Beta-2-Glycoprotein I Ab. IgG <10 SGU (<=20); Beta-2-Glycoprotein I Ab. IgM <10 SMU (<=20)
[2025-06-15 00:08] LABS: Anticoagulant Med Neutralizati Not Performed (Not Performed); Neutralized dRVTT Screen Ratio Not Performed (<=1.20); Prothrombin Time 13.5 s (12.0-15.5); dRVTT 1.1 Mix Ratio Not Performed (<=1.20); dRVTT Confirmation Ratio Not Performed (<=1.20); dRVTT Screen Ratio 1.11 (<=1.20)
== END ==
LOC: REG 06:32
PROVIDERS: ATTENDING PHYSICIAN Internal Medicine Hematology & Oncology; FAMILY PHYSICIAN Student in an Organized Health Care Education/Training Program; REFERRING PHYSICIAN Specialist
DX: I82.401 Acute embolism and thrombosis of unspecified deep veins of right lower extremity (principal); C61 Malignant neoplasm of prostate
CPT/HCPCS: 36415; 81240; 81241; 84153; 85300; 85305; 85379; 85610; 85613; 85730; 86146; 86147

== ENCOUNTER → 2025-06-25 10:35 | Outpatient (REF) | payer MEDICARE, OTHER, SELFPAY ==
[2025-06-25 18:52] LABS: Urine Character Clear (Clear)
== END ==
LOC: CLAB 10:35
PROVIDERS: ATTENDING PHYSICIAN Specialist
DX: R31.9 Hematuria, unspecified (principal)
CPT/HCPCS: 81003

== ENCOUNTER → 2025-08-23 06:39 | Outpatient (REF) | payer MEDICARE, OTHER, SELFPAY ==
[2025-08-23 07:22] LABS: Hematocrit 40.2 % (39.0-52.0); Hemoglobin 13.3 g/dL (13.0-18.0); Mean Corp Hgb Conc. 33.1 g/dL (33.0-37.0); Mean Corpuscular Volume 100.8 fL (80.0-94.0); Nucleated Red Blood Cells % 0 % (-); Platelet Count 156 10^3/uL (130-400); Red Cell Dist. Width 15.3 % (11.5-14.5)
[2025-08-23 07:37] LABS: ALT (SGPT) 20 U/L (0-50); AST (SGOT) 27 U/L (17-59); Albumin 4.2 g/dl (3.5-5.0); Alkaline Phosphatase 41 U/L (38-126); Blood Urea Nitrogen 18 mg/dl (9-20); Calcium 8.5 mg/dl (8.4-10.2); Carbon Dioxide 30 mmol/L (22-30); Chloride 108 mmol/L (98-107); Glucose 94 mg/dl (70-99); Potassium 4.3 mmol/L (3.5-5.1); Sodium 140 mmol/L (135-145); Total Protein 6.5 g/dl (6.3-8.2); eGFR > 60.00
== END ==
LOC: REG 06:39
PROVIDERS: ATTENDING PHYSICIAN Internal Medicine Hematology & Oncology; FAMILY PHYSICIAN Student in an Organized Health Care Education/Training Program
DX: I82.401 Acute embolism and thrombosis of unspecified deep veins of right lower extremity (principal)
CPT/HCPCS: 36415; 80053; 82232; 82784; 83521; 84155; 84165; 85025; 86334

== ENCOUNTER → 2025-08-30 14:31 | Outpatient (REF) | payer MEDICARE, OTHER, SELFPAY | LOC: RAD 14:31 | PROVIDERS: ATTENDING PHYSICIAN Internal Medicine Hematology & Oncology; FAMILY PHYSICIAN Student in an Organized Health Care Education/Training Program | DX: I82.401 Acute embolism and thrombosis of unspecified deep veins of right lower extremity (principal) | CPT/HCPCS: 71260; Q9967 ==

== ENCOUNTER → 2025-09-13 06:35 | Outpatient (REF) | payer MEDICARE, OTHER, SELFPAY ==
[2025-09-13 08:28] LABS: D-Dimer 1.86 ug/mlFEU (0.00-0.50)
== END ==
LOC: REG 06:35
PROVIDERS: ATTENDING PHYSICIAN Internal Medicine Hematology & Oncology; FAMILY PHYSICIAN Student in an Organized Health Care Education/Training Program
DX: I82.401 Acute embolism and thrombosis of unspecified deep veins of right lower extremity (principal)
CPT/HCPCS: 36415; 85379

== ENCOUNTER → 2025-10-11 11:04 | Outpatient (REF) | payer MEDICARE, OTHER, SELFPAY ==
[2025-10-11 12:20] LABS: D-Dimer 1.26 ug/mlFEU (0.00-0.50)
== END ==
LOC: REG 11:04
PROVIDERS: ATTENDING PHYSICIAN Internal Medicine Hematology & Oncology
DX: I82.401 Acute embolism and thrombosis of unspecified deep veins of right lower extremity (principal)
CPT/HCPCS: 36415; 85379

== ENCOUNTER 2025-11-04 03:13 | Emergency (ER) | payer MEDICARE, OTHER, SELFPAY ==
[2025-11-04 03:15] VITALS: BP 161/92
--- NOTE | 2025-11-04 04:07 | ED.GENMED ---
History of Present Illness
General
Chief Complaint: Post Operative Problem(s)
Source: patient, spouse and previous radiology exam
Exam Limitations: none
Time Seen by Provider: 11/04/25 03:54
Nursing documentation reviewed up to this point in time: agreed with
History of Present Illness
History of Present Illness:
80-year-old male presents with back pain rating into his bilateral legs status post spinal surgery anterior and posterior approach by Dr. Angelito haskins at [place] on the 13 of this month, feeling okay postoperatively but developing some pain worse at
night some relief with oxycodone, worsened this evening no fevers no nausea no vomiting, no bowel or bladder incontinence no constipation
Past History
Past History
ED Past Medical History: Cancer (prostate), HTN, Hypercholesterolemia, Other (Lower GI bleed) and Other (Gout, benign prostatic hypertrophy, borderline diabetes. depression, previous known hemorrhoids and polypectomy); Negative Arrthythmia
ED Past Surgical History: Orthopedic and Urological; Negative Cardiac
Social History
Tobacco: Former smoker
Alcohol: Daily
Drug: None
Personal:
Living: with family
Employment: Retired
Family History
Family History: Other (Noncontributory)
Phy Exam
Physical Exam
Physical Exam:
Physical Exam
General: 80 male looks uncomfortable pain nontoxic afebrile
Neck: No jaundice
Heart: s1/s2 regular rate and rhythm, no murmur. equal radial pulses.
Lungs: no acute respiratory distress. clear bilaterally
Abdomen: Soft, vertical scar lower abdomen clean dry and intact back scars clean dry and intact
Neuro: alert and oriented. Mild pain with flexion of his bilateral lower extremity
Skin: no rash
Psychiatric: well kept. interactive and cooperative
Extremities: no edema.
Course
Orders/Labs/Results
Orders:
Orders
11/04/25 04:01
HYDROmorphone [Dilaudid] 1 mg IV NOW STA
11/04/25 04:08
Complete Blood Count/With Diff Urgent
Comprehensive Metabolic Panel Urgent
11/04/25 04:48
HYDROmorphone [Dilaudid] 1 mg IV NOW STA
Abnormal Lab Results
11/04/25
04:08
RBC 3.95 L 10^6/uL
(4.70-6.10)
Hgb 12.9 L g/dL
(13.0-18.0)
Hct 38.9 L %
(39.0-52.0)
MCV 98.5 H fL
(80.0-94.0)
MCH 32.7 H pg
(27.0-31.0)
Abs Immat Gran (auto) 0.1 H 10^3/uL
(0-0.05)
Absolute Monos (auto) 0.9 H 10^3/uL
(0.1-0.6)
Immature Gran % 0.9 H %
(0-0.5)
Monocytes % 12.0 H %
(1.7-9.3)
Sodium 132 L mmol/L
(135-145)
BUN 28 H mg/dl
(9-20)
Glucose 102 H mg/dl
(70-99)
11/04/25 04:08
11/04/25 04:08
Vital Signs
Initial and Last Documented VS:
Initial Vital Signs
Temp Pulse Resp BP Pulse Ox
97.4 F 63 18 161/92 98
11/04/25 03:15 11/04/25 03:15 11/04/25 03:15 11/04/25 03:15 11/04/25 03:15
Last Documented Vital Signs
Temp Pulse Resp BP Pulse Ox
97.4 F 63 18 161/92 98
11/04/25 03:15 11/04/25 03:15 11/04/25 03:15 11/04/25 03:15 11/04/25 04:07
MDM/Problems Addressed
Differential Diagnosis Includes:
Postoperative pain neuropathy no fever, no bowel or bladder incontinence
MDM/Problems Addressed:
Postoperative
Chronic conditions affecting care:
Chronic back pain
*Pulse Oximetry
SaO2: 98
Oxygen Mode of Delivery: Room air
Patient hypoxic: no
*Critical Care Note
Total Time (30-74mins, 75-104mins- exclusive of procedures): Not Applicable
Update Note
Update Note:
5:20 AM update patient feeling better after Dilaudid, he is able to lift his legs off the bed without difficulty Long conversation with the patient his initial preop pain and numbness has improved now he is able to walk with a walker overall his
function is improved but he is developing some numbness and tingling of his bilateral lower legs, he has an appointment with his surgeon in a few days he has been communicating with the surgical team via the portal, was on tramadol switched to
oxycodone 5, I will give patient some Dilaudid pills and discussed Neurontin or similar meds with his surgeon when he sees him on Wednesday
ED Attending Note
-
Portions of this chart may have been created with voice recognition software.� Occasional wrong word or��sound alike� substitutions may have occurred due to the inherent limitations of voice recognition software.
Discharge Plan
Departure
Patient Disposition: Home (Routine Discharge)
Date of Disposition: 11/04/25
Time of Disposition: 05:23
Patient with high blood pressure during this ER visit?: No
Condition: Good
Discharge Problem:
Post-operative pain
Instructions: Postoperative Pain (DC)
Prescriptions:
New
hydromorphone [Dilaudid] 2 mg tablet
2 mg PO Q6H PRN (Reason: Pain) Qty: 10 0RF
No Action
vitamin B complex 1 TAB tablet
1 tab PO DAILY
fluoxetine 20 MG capsule
20 mg PO DAILY
omeprazole 20 MG capsule,delayed release(DR/EC)
20 mg PO DAILY
allopurinol 300 MG tablet
300 mg PO DAILY
lisinopril 20 mg tablet
20 mg PO DAILY
rosuvastatin 5 mg tablet
5 mg PO MOWEFR@0800
loperamide 2 mg Capsule
2 mg PO BID
therapeutic multivitamin Tablet
1 tab PO DAILY
Tums 300 mg (750 mg) Tablet,Chewable
300 mg PO HSPRN PRN (Reason: stomach issues)
milk thistle 150 mg Capsule
140 mg PO DAILY
simethicone 125 mg Tablet
125 mg PO BIDPRN PRN (Reason: gas pains)
Visbiome 112.5 billion cell Capsule
1 cap PO DAILY
Eliquis 5 mg tablet
5 mg PO BID Qty: 70 0RF
digestive enzymes Capsule
1 cap PO DAILY
guar gum Packet
1 tbsp PO DAILY
propranolol 40 mg Tablet
40 mg PO BID
dutasteride 0.5 mg Capsule
0.5 mg PO DAILY
lidocaine 4 % Adhesive Patch,Medicated
1 patch topical DAILY Qty: 7 0RF
Rx Instructions:
apply to lumbar spine
oxycodone-acetaminophen 5-325 mg tablet
1 - 2 tab PO Q4H PRN (Reason: severe pain) Qty: 20 0RF
Referrals:
Angelito Haskins MD [Non-Admitting Privileges, Orthopedics] - Keep scheduled appt
Reyes Martinez DO [Family Provider, Family Practice]
Activity Restrictions/Additional Instructions:
You can substitute Dilaudid 2 mg every 6-8 hours instead of oxycodone
Keep your appoint with Dr. Jean next week, discussed Neurontin or similar medications with him to treat nerve pain
Interventions
Interventions:
*General Assessment Last Done: 11/04/25 03:15
*Neglect/Abuse Screening Last Done: 11/04/25 03:15
*Risk Screen - Suicide (C-SSRS) Last Done: 11/04/25 03:15
Discharge Date and Time
Print Language: DIVEHI
[2025-11-04] MEDS: DILAUDID 1 MG IV ×2 (04:13→04:56)
[2025-11-04 04:17] VITALS: BP 157/80
[2025-11-04 04:28] LABS: Hematocrit 38.9 % (39.0-52.0); Hemoglobin 12.9 g/dL (13.0-18.0); Mean Corp Hgb Conc. 33.2 g/dL (33.0-37.0); Mean Corpuscular Volume 98.5 fL (80.0-94.0); Nucleated Red Blood Cells % 0 % (-); Platelet Count 381 10^3/uL (130-400); Red Cell Dist. Width 13.5 % (11.5-14.5)
[2025-11-04 04:30] VITALS: BP 159/79
[2025-11-04 04:42] LABS: ALT (SGPT) 39 U/L (0-50); AST (SGOT) 25 U/L (17-59); Albumin 4.3 g/dl (3.5-5.0); Alkaline Phosphatase 87 U/L (38-126); Blood Urea Nitrogen 28 mg/dl (9-20); Calcium 9.5 mg/dl (8.4-10.2); Carbon Dioxide 25 mmol/L (22-30); Chloride 100 mmol/L (98-107); Glucose 102 mg/dl (70-99); Potassium 4.6 mmol/L (3.5-5.1); Sodium 132 mmol/L (135-145); Total Protein 6.9 g/dl (6.3-8.2); eGFR > 60.00
[2025-11-04 05:00] VITALS: BP 156/78
[2025-11-04 05:30] VITALS: BP 160/85
[2025-11-04 06:00] VITALS: BP 161/90
[2025-11-04] MEDS: DILAUDID 0.5 MG IV (06:00)
== END 2025-11-04 06:42 | disposition home or self-care (01) ==
LOC: EMR 03:13
PROVIDERS: EMERGENCY PHYSICIAN Emergency Medicine; FAMILY PHYSICIAN Student in an Organized Health Care Education/Training Program
DX: G89.18 Other acute postprocedural pain (principal); I10 Essential (primary) hypertension; E78.00 Pure hypercholesterolemia, unspecified; F32.A Depression, unspecified; N40.0 Benign prostatic hyperplasia without lower urinary tract symptoms; M10.9 Gout, unspecified; M54.9 Dorsalgia, unspecified; G89.29 Other chronic pain; Z85.46 Personal history of malignant neoplasm of prostate; Z87.891 Personal history of nicotine dependence
CPT/HCPCS: 99284; 96374; 96376 ×2; 80053; 85025

== ENCOUNTER 2025-11-04 09:26 | Emergency (ER) | payer MEDICARE, OTHER, SELFPAY ==
[2025-11-04] VITALS (13 sets, daily range): BP systolic 137–181; BP diastolic 82–98; BMI 24.3
--- NOTE | 2025-11-04 10:14 | ED.GENMED ---
History of Present Illness
General
Chief Complaint: Post Operative Problem(s)
Source: patient and spouse
Exam Limitations: none
Time Seen by Provider: 11/04/25 09:51
Nursing documentation reviewed up to this point in time: agreed with
History of Present Illness
History of Present Illness:
80-year-old male with a past medical history as noted presents to the ER for evaluation of back and leg pain. Patient is postop from spinal fusion 10/18/[address] Gurrola at [facility]. He says he was admitted for a few days after
and was discharged on 10/24/2025. He says that on discharge he was ambulatory with a walker and was taking Tylenol 1000 mg every 6 hours and oxycodone 5 mg every 6 hours along with a bowel regimen and muscle relaxer (cyclobenzaprine). This regimen
was controlling his symptoms until around 10/30/2025 at which point he started to notice he was having worsening radicular pains shooting down the back of both legs starting at the hips and down through the feet. He says he has a mild numb feeling
as well. His legs have been generally weak but he does not feel it is any worse since discharge. He has still been able to ambulate with a walker. He says he was not able to discuss the symptoms with his doctor because of the holiday but
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 He has not had any bowel or bladder incontinence he says he is urinating appropriately. He denies any saddle anesthesia. He denies
fevers or chills. He has not had any falls or trauma since surgery. Of note he is on Eliquis and has been taking this since hospital discharge.
Past History
Past History
ED Past Medical History: Cancer (prostate), HTN, Hypercholesterolemia, Other (Lower GI bleed) and Other (Gout, benign prostatic hypertrophy, borderline diabetes. depression, previous known hemorrhoids and polypectomy); Negative Arrthythmia
ED Past Surgical History: Orthopedic and Urological; Negative Cardiac
Social History
Tobacco: Former smoker
Alcohol: Daily
Drug: None
Personal:
Living: with family
Employment: Retired
Family History
Family History: Other (Noncontributory)
Review of Systems
Review of Systems
All Other Systems: ROS reviewed and negative except as documented in HPI and ROS
Constitutional: Denies fever
Respiratory: Denies trouble breathing
Cardiac: Denies chest pain
ABD/GI: Denies abdominal pain
Musculoskeletal: Reports back pain and other (Bilateral leg pain); Denies neck pain
Neurological: Reports weakness and numbness; Denies headache
Phy Exam
Physical Exam
Physical Exam:
General: Awake, alert, oriented x3; no acute distress
Head: Normocephalic, atraumatic
Eyes: Conjunctiva normal, EOMI
Throat: Airway intact, handling secretions
Neck: Trachea midline, supple without meningismus
Lungs: Clear to auscultation bilaterally, no wheezing, rales, rhonchi
Heart: Regular rate and rhythm, no murmurs, gallops, or rubs
Abd: Soft, non distended, nontender, well-healing surgical incision lower abdomen
Back: Well-healing surgical incision without any drainage, erythema or even significant local tenderness
Rectal: Intact rectal tone
Neuro: Cranial nerves grossly intact, speech fluid; motor and sensory objectively intact in the legs bilaterally�he was able to lift both legs off the bed without assistance and hold them; he has good strength on dorsiflexion of the great toe and on
plantarflexion and sensory objectively intact across the dermatomes of the legs
Skin: Warm and dry
Extremities: No edema in extremities, equal pulses in all extremities
Scores
Heart Failure Risk
Heart Failure Risk Score: Not Applicable
Heart Score for Chest Pain Patients
STEMI patient?: Not applicable
Withdrawal Assessment of Alcohol
Withdrawal Assessment Completed?: Not applicable
Course
Orders/Labs/Results
Orders:
Orders
11/04/25 10:14
Bladder Scan- Treatment ONCE
HYDROmorphone [Dilaudid] 1 mg IV NOW STA
11/04/25 11:25
HYDROmorphone [Dilaudid] 0.5 mg IV NOW STA
11/04/25 11:56
HYDROmorphone [Dilaudid] 0.5 mg .ROUTE .STK-MED ONE
11/04/25 11:58
HYDROmorphone [Dilaudid] 0.5 mg IV NOW STA
11/04/25 12:21
MR Lumbar W/o & With Contrast Urgent
Comment:
Reason For Exam: post op back pain, leg pain, weak/numb
Recent pill cam endoscopy?: No
11/04/25 12:24
Acetaminophen 1000MG/100Ml [Ofirmev] 1,000 mg in 100 ml IV ONCE
Acetaminophen IV Indication:: ED Narcotic Naive Pt-ONCE
diazePAM [Valium Injection] 2 mg IV NOW STA
11/04/25 14:33
Gabapentin [Neurontin] 100 mg PO NOW STA
11/04/25 15:17
Dexamethasone Sod Phosphate [Decadron] 10 mg IV NOW STA
Morphine Sulfate 4 mg IV NOW STA
11/04/25 16:34
Ketamine 20 mg 0.9% Sodium Chloride 50 ml [Nss] 50 ml IV NOW
11/04/25 16:38
Ondansetron Injectable [Zofran] 4 mg IV NOW STA
11/04/25 10:14
11/04/25 10:14
Vital Signs
Initial and Last Documented VS:
Initial Vital Signs
Temp Pulse Resp BP Pulse Ox
36.3 C 84 20 137/82 97
11/04/25 09:30 11/04/25 09:30 11/04/25 09:30 11/04/25 09:30 11/04/25 09:30
Last Documented Vital Signs
Temp Pulse Resp BP Pulse Ox
36.8 C 91 19 157/91 98
11/04/25 15:19 11/04/25 17:30 11/04/25 17:30 11/04/25 17:30 11/04/25 17:30
MDM/Problems Addressed
Differential Diagnosis Includes:
Postoperative pain, radiculopathy, cauda equina syndrome (spinal epidural hematoma, abscess, etc)
MDM/Problems Addressed:
80-year-old male who is status post spinal fusion on 10/18 returns to the ER for the second time now complaining of low back pain but mainly pain in the legs bilaterally associate with mild numb feeling. He has weakness but it has been unchanged
since surgery. He has been ambulatory with a walker. Vitals and exam are as above. Plan to place an IV and send screening labs, check MR of the lumbar spine. Will discuss with his surgical team. Pain control in the meantime.
Patient continues to have severe pain, has required multiple rounds of pain control measures. Will trial steroids, Neurontin as opioids and Valium have not improved his symptoms.
Discussed with surgical team�orthopedic resident at [place]. If MRI shows nothing surgical patient can be admitted for pain control here if needed.
MRI reviewed: No epidural hematoma or abscess noted; there is an area anterior to the disc space L5-S1 possible hematoma versus seroma. Given the patient is on Eliquis and is having intractable pain will require admission I do think would be
appropriate to transfer him down to [place] for care by his primary surgical team. Will discuss with surgical team to transfer center.
Patient still having significant pain at this point he has had multiple rounds of medications including opioids, muscle relaxers, steroids, Tylenol; NSAIDs contraindicated as he is on Eliquis. At this point can trial some ketamine as he is still
writhing in bed and in pain. Awaiting to hear from surgical team regarding transfer.
Discussed with [place] transfer center�will transfer ER to ER to [facility]. Monitor pending transport.
*Radiology
Radiology exam reviewed: radiology read reviewed
*Pulse Oximetry
SaO2: 97
Oxygen Mode of Delivery: Room air
Patient hypoxic: no (97%)
*Critical Care Note
Total Time (30-74mins, 75-104mins- exclusive of procedures): Not Applicable
Data Reviewed
Source: patient and spouse
ED Attending Note
-
Portions of this chart may have been created with voice recognition software.� Occasional wrong word or��sound alike� substitutions may have occurred due to the inherent limitations of voice recognition software.
Discharge Plan
Departure
Patient Disposition: Acute Care Hospital
Date of Disposition: 11/04/25
Time of Disposition: 16:43
Discharge Problem:
Intractable low back pain, Bilateral radicular pain
Prescriptions:
No Action
vitamin B complex 1 TAB tablet
1 tab PO DAILY
fluoxetine 20 MG capsule
20 mg PO DAILY
omeprazole 20 MG capsule,delayed release(DR/EC)
20 mg PO DAILY
allopurinol 300 MG tablet
300 mg PO DAILY
lisinopril 20 mg tablet
20 mg PO DAILY
rosuvastatin 5 mg tablet
5 mg PO MOWEFR@0800
loperamide 2 mg Capsule
2 mg PO BID
therapeutic multivitamin Tablet
1 tab PO DAILY
Tums 300 mg (750 mg) Tablet,Chewable
300 mg PO HSPRN PRN (Reason: stomach issues)
milk thistle 150 mg Capsule
140 mg PO DAILY
simethicone 125 mg Tablet
125 mg PO BIDPRN PRN (Reason: gas pains)
Visbiome 112.5 billion cell Capsule
1 cap PO DAILY
Eliquis 5 mg tablet
5 mg PO BID Qty: 70 0RF
digestive enzymes Capsule
1 cap PO DAILY
guar gum Packet
1 tbsp PO DAILY
propranolol 40 mg Tablet
40 mg PO BID
dutasteride 0.5 mg Capsule
0.5 mg PO DAILY
lidocaine 4 % Adhesive Patch,Medicated
1 patch topical DAILY Qty: 7 0RF
Rx Instructions:
apply to lumbar spine
oxycodone-acetaminophen 5-325 mg tablet
1 - 2 tab PO Q4H PRN (Reason: severe pain) Qty: 20 0RF
hydromorphone [Dilaudid] 2 mg tablet
2 mg PO Q6H PRN (Reason: Pain) Qty: 10 0RF
Referrals:
Reyes Martinez DO [Family Provider, Family Practice]
Hospital Transfer
Other hospital: [facility]
I certify that the patient requires transfer: Yes
Discussed case with accepting physician: Juan Pablo Baker
Reason for transfer: higher level of care, availability of service and specialties available
Interventions
Interventions:
*General Assessment Last Done: 11/04/25 09:30
*Neglect/Abuse Screening Last Done: 11/04/25 09:30
*ED COVID-19 Vaccine History Last Done: 11/04/25 15:27
*ED Influenza Vaccine History Last Done: 11/04/25 15:27
[facility] Fall Risk Assessment Tool Last Done: 11/04/25 15:28
*Risk Screen - Suicide (C-SSRS) Last Done: 11/04/25 09:30
ED-Skin Assessment Last Done: 11/04/25 11:35
Discharge Date and Time
Print Language: URUGUAYAN
[2025-11-04] MEDS: DILAUDID 1 MG IV (10:43)
[2025-11-04] MEDS: DILAUDID 0.5 MG IV ×2 (11:35→12:00)
[2025-11-04] MEDS: VALIUM INJECTION 2 MG IV (12:26)
[2025-11-04] MEDS: OFIRMEV 100 IV (13:54)
[2025-11-04] MEDS: NEURONTIN 100 MG PO (14:45)
[2025-11-04] MEDS: DECADRON 10 MG IV (15:24)
[2025-11-04] MEDS: MORPHINE SULFATE 4 MG IV (15:24)
[2025-11-04] MEDS: ZOFRAN 4 MG IV (16:49)
[2025-11-04] MEDS: KETAMINE 52 MG IV (17:11)
== END 2025-11-04 18:57 | disposition short-term general hospital (02) ==
LOC: EMR 09:26
PROVIDERS: EMERGENCY PHYSICIAN Emergency Medicine; FAMILY PHYSICIAN Student in an Organized Health Care Education/Training Program
DX: M54.50 Low back pain, unspecified (principal); M54.10 Radiculopathy, site unspecified; I10 Essential (primary) hypertension; E78.00 Pure hypercholesterolemia, unspecified; F32.A Depression, unspecified; N40.0 Benign prostatic hyperplasia without lower urinary tract symptoms; M10.9 Gout, unspecified; Z79.01 Long term (current) use of anticoagulants; Z85.46 Personal history of malignant neoplasm of prostate; Z87.891 Personal history of nicotine dependence; Z98.1 Arthrodesis status
CPT/HCPCS: 96375 ×3; 72158; 80053; 85025; 96365; 96374; 96376; 99284; A9575